=== PATIENT | female | born 1945 | race Caucasian/White ===

== ENCOUNTER 2018-11-01 00:09 | Inpatient (IN) | payer MEDICARE ==
--- NOTE | 2018-11-01 00:27 | ED ---
Complex/Multi-Sys Presentation - HPI Summary HPI Summary: This patient was transferred from [place] to [facility] for sepsis. The patient reports right leg wounds and pain, with erythema. Both of her lower extremities have been wrapped for about two days since she was seen at a wound clinic in [place]. She says that she was febrile with chills and currently feels tired. She rates her pain as an 8/10 in severity. She denies any vomiting but reports some diarrhea. She has been on abx. Hx of DM - History Of Current Complaint Hx Obtained From: Patient, EMS Onset/Duration: Sudden Onset, Lasting Days, Still Present Timing: Constant, Days Severity Currently: Severe Severity Initially: Severe Location: Pain At: - legs Character: Unable To Describe Aggravating Factor(s): nothing Alleviating Factor(s): nothing Associated Signs And Symptoms: Positive: Edema, Diarrhea, Fever. Negative: Vomiting - Allergies/Home Medications Allergies/Adverse Reactions: Allergies Allergy/AdvReac Type Severity Reaction Status Date / Time meperidine [From Demerol] Allergy Unknown Verified 11/01/18 00:14 Reaction Details prochlorperazine Allergy Unknown Verified 11/01/18 00:14 [From Compazine] Reaction Details Home Medications: Home Medications Amlodipine Besylate [Amlodipine 2.5 mg tab] 5 mg PO DAILY 11/01/18 [History Confirmed 11/01/18] Aspirin [Adult Low Dose Aspirin EC] 81 mg PO DAILY 11/01/18 [History Confirmed 11/01/18] Atorvastatin* [Lipitor*] 80 mg PO DAILY 11/01/18 [History Confirmed 11/01/18] Cholecalciferol TAB* [Vitamin D TAB*] 400 unit PO DAILY 11/01/18 [History Confirmed 11/01/18] Cyanocobalamin (Vitamin B-12) [B-12] 2,500 mcg PO DAILY 11/01/18 [History Confirmed 11/01/18] Furosemide TAB* [Lasix TAB*] 40 mg PO BID 11/01/18 [History Confirmed 11/01/18] Gabapentin [Neurontin] 100 mg PO DAILY 11/01/18 [History Confirmed 11/01/18] Insulin NPH Hum/Reg Insulin Hm [Novolin 70-30 Flexpen] 40 unit SUBCUT QPM [History Confirmed 11/01/18] Insulin NPH Hum/Reg Insulin Hm [Novolin 70-30 Flexpen] 50 units SUBCUT QAM 11/01 [History Confirmed 11/01/18] Lisinopril 10 mg PO DAILY 11/01/18 [History Confirmed 11/01/18] Methadone TAB* [Dolophine TAB*] 5 mg PO QID 11/01/18 [History Confirmed 11/01/18 ] Metoprolol Succinate [Metoprolol Succinate ER] 12.5 mg PO DAILY 11/01/18 [ History Confirmed 11/01/18] metOLazone [Metolazone] 2.5 mg PO DAILY 11/01/18 [History Confirmed 11/01/18] PMH/Surg Hx/FS Hx/Imm Hx Endocrine/Hematology History: Reports: Hx Diabetes Sensory History: Denies: Hx Deafness EENT History: Denies: Hx Deafness Infectious Disease History: No Infectious Disease History: Denies: Traveled Outside the [place] in Last 30 Days - Family History Known Family History: Positive: Cardiac Disease - Social History Alcohol Use: None Hx Substance Use: No Substance Use Type: Reports: None Hx Tobacco Use: No Smoking Status (MU): Never Smoked Tobacco Review of Systems Positive: Fever, Chills Positive: Diarrhea. Negative: Vomiting Positive: Myalgia - leg pain, Edema - lower extremities Positive: Other - positive: erythema lower extremities All Other Systems Reviewed And Are Negative: Yes Physical Exam - Summary Physical Exam Summary: Appearance: elderly female, somewhat obese in no acute distress, Skin: Warm, dry, no obvious rash Eyes: sclera anicteric, no conjunctival pallor ENT: mucous membranes moist, pharynx appears normal Neck: Supple, nontender Respiratory: Clear to auscultation, no signs of respiratory distress Cardiovascular: Normal S1, S2. No murmurs. Normal distal pulses in tibial and radial bilaterally. Abdomen: Soft, nontender, normal active bowel sounds present Musculoskeletal:bilateral lower extremity edema, deep ulcer on plantar aspect of right great toe with some granulation tissue and is not malodorous, a little bit of bleeding of edges of the ulcer, the rest of the dressing was taken down on her leg and there are no other visible ulcers or frankly cellulitic areas. Neurological: A&Ox3, awake and alert, mentation is normal, speech is fluent and appropriate Psychiatric: affect is normal, does not appear anxious or depressed Triage Information Reviewed: Yes Vital Signs On Initial Exam: Initial Vitals Temp Pulse Resp BP Pulse Ox 98 F 102 18 150/82 97 11/01/18 00:12 11/01/18 00:12 11/01/18 00:12 11/01/18 00:12 11/01/18 00:12 Vital Signs Reviewed: Yes Diagnostics - Vital Signs Vital Signs Temp Pulse Resp BP Pulse Ox 11/01/18 00:12 98 F 102 18 150/82 97 - Laboratory Result Diagrams: 11/01/18 00:46 11/01/18 00:46 Lab Statement: Any lab studies that have been ordered have been reviewed, and results considered in the medical decision making process. Complex Multi-Symp Course/Dx Course Of Treatment: This patient was transferred from [place] to [facility] for sepsis. The patient reports right leg wounds and pain, with erythema. The physical exam revealed that the patient is an elderly female, somewhat obese in no acute distress, bilateral lower extremity edema, deep ulcer on plantar aspect of right great toe with some granulation tissue and is not malodorous, a little bit of bleeding of edges of the ulcer. the rest of the dressing was taken down on her leg and there are no other visible ulcers or frankly cellulitic areas. Blood work, chemistries and UA obtained. Discussed case with Dr. Calero, hospitalist, who accepted the patient for admission. The patient is agreeable with this plan. - Diagnoses Provider Diagnoses: Fever, Cellulitis, Sepsis - Physician Notifications Discussed Care Of Patient With: John Calero Time Discussed With Above Provider: 00:24 Instructed by Provider To: Admit As Inpatient Discharge - Sign-Out/Discharge Documenting (check all that apply): Patient Departure - admit Patient Received Moderate/Deep Sedation with Procedure: No - Discharge Plan Condition: Fair Disposition: ADMITTED TO [facility] Referrals: No Primary Care Phys,NOPCP [Primary Care Provider] - - Billing Disposition and Condition Condition: FAIR Disposition: Admitted to [facility] - Attestation Statements Document Initiated by Scribe: Yes Documenting Scribe: Boo Schulte Provider For Whom Scribe is Documenting (Include Credential): Jose Pugh MD Scribe Attestation: Boo Cooper, eugenieibed for Jose Pugh MD on 11/01/18 at 0159. Scribe Documentation Reviewed: Yes Provider Attestation: The documentation as recorded by the scribe, Boo Schulte accurately reflects the service I personally performed and the decisions made by me, Jose Pugh MD Status of Eugenieibleonard Document: Viewed
[2018-11-01 00:56] LABS: Hematocrit 24 % (35-47); Hemoglobin 8.2 g/dL (12.0-16.0); Mean Corpuscular HGB Conc 34 g/dL (31-36); Mean Corpuscular Hemoglobin 33 pg (27-31); Mean Corpuscular Volume 97 fL (80-97); Mean Platelet Volume 8.5 fL (7.4-10.4); Platelet Count 144 10^3/uL (150-450); Red Blood Count 2.46 10^6 /uL (3.70-4.87); Red Cell Distribution Width 17 % (10-15); White Blood Count 9.9 10^3/uL (3.5-10.8)
[2018-11-01 01:12] LABS: ALT 17 U/L (7-52); AST 48 U/L (13-39); Albumin 1.8 g/dL (3.2-5.2); Albumin/Globulin Ratio 0.5 (1-3); Alkaline Phosphatase 113 U/L (34-104); Anion Gap 6 mmol/L (2-11); BUN/Creatinine Ratio 31.4 (8-20); Blood Urea Nitrogen 44 mg/dL (6-24); CO2 Carbon Dioxide 24 mmol/L (22-32); Calcium 7.4 mg/dL (8.6-10.3); Chloride 104 mmol/L (101-111); EGFR African American 44.6 (>60); EGFR Non-African American 36.9 (>60); Globulin 3.4 g/dL (2-4); Glucose 149 mg/dL (70-100); Potassium 4.1 mmol/L (3.5-5.0); Sodium 134 mmol/L (135-145); Total Protein 5.2 g/dL (6.4-8.9)
[2018-11-01 01:54] LABS: ABS Eosinophils 0.1 10^3/ul (0-0.6); ABS Lymphocytes 0.4 10^3/ul (1.0-4.8); ABS Monocytes 0.6 10^3/ul (0-0.8); ABS Neutrophils 8.3 10^3/ul (1.5-7.7); Eosinophil % 0.9 %; Lymphocyte % 4.8 %
--- NOTE | 2018-11-01 02:03 | HP ---
History of Present Illness - History of Present Illness Reason for Visit: Fever/Generalized weakness. History of Present Illness: 73yoF with T2DM, HTN, CVA, CAD s/pCABG, Chronic bilateral LE lyphedema, was sent from [facility] due to sepsis, anemia and elevated troponin. Enmanuel has had fever for 3 days with temperature as high at 103 along with diarrhea. And for the last two days has been mostly bedridden and unable to walk. However initially refused to come to ER, but son finally convinced her after she was feeling extremely weak. She had diabetic neuropathy and had chronic LE ulcers which was dressed on monday at a wound clinic. She denies any chest pain, cough or shortness of breath. Denies any blood in stool. - Past Medical History Cardiac: [employer]: Peripheral neuropathy, TIA Heme/Onc: Anemia NOS - Which patient thinks is due to slow bleeding from wounds. , Other - Chronic bilateral LE lymphedema. Infectious Disease: Other - Pseudomonal Bacteremia. Renal/: Chronic renal insuff Endocrine: Diabetes - Past Surgical History Past Surgical History: CABG, Hysterectomy, Total Knee Replacement - Bilateral - Past Social History Smoke: No Alcohol: None Drugs: None Lives: With Family - Lives with and son is next door. Review of Systems - Measurements Intake and Output: Intake and Output Last 24 Hours 10/29/18 10/30/18 10/31/18 11/01/18 06:59 06:59 06:59 06:59 Weight 173 lb - Review of Systems Constitutional Symptoms: Positive: Weakness, Fever Eyes: Negative: Change in Vision Cardiology: Negative: Chest Pain, Shortness of Breath Gastroenterology: Positive: Diarrhea Negative: Abdominal Pain, Nausea, Vomiting Endocrinology: Positive: Diabetes Mellitus, Diabetic Foot Ulcers Hematologic/Lymphatic: Positive: Anemia Objective Vital Signs - 8 hr 11/01/18 11/01/18 00:12 00:30 Temperature 98 F Pulse Rate 102 Respiratory 18 17 Rate Blood Pressure 150/82 (mmHg) O2 Sat by Pulse 97 Oximetry Oxygen Devices in Use Now: None Eyes: No Scleral Icterus, PERRLA Ears/Nose/Mouth/Throat: - - Membranes appear dry. Neck: NL Appearance and Movements; NL JVP Respiratory: Clear to Auscultation Cardiovascular: - - Systolic Murmur noted. Extremities: - - Chronic lymphedema with bilateral LE erythema up to the knee with large ulcer under right great toe. Neurological: Alert and Oriented x 3, NL Sensation Result Diagrams: 11/01/18 00:46 11/01/18 00:46 Additional Lab and Data: Results summarized from [facility]. WBC Elevated at 11.1 with 7% bands. Hemoglobin 7.3 Creatinine elevated at 1.8 Troponin 0.234 Lactic Acid elevated 2.8 UA negative for any Leukocyte esterase or nitrite. Albumin low at 1.3 CXR Bilateral infrahilar patchy opacitis, which may represent infiltrates. EKG Data: EKG Regular rhythm at 82BPM with abnormal P-axis. No obvious ST changes. Assess/Plan/Problems-Billing Assessment: - Patient Problems (1) Sepsis Current Visit: Yes Status: Acute Comment: Unclear etiology cellulitis vs PNA given CXR read. ?Multi-organ damage given elevated troponin, KELBY and lactic acidosis. (2) PNA (pneumonia) Current Visit: Yes Status: Acute Code(s): J18.9 - PNEUMONIA, UNSPECIFIED ORGANISM SNOMED Code(s): 941246518 Comment: Start vanco/zosyn for now. (3) Cellulitis Current Visit: Yes Status: Acute Code(s): L03.90 - CELLULITIS, UNSPECIFIED SNOMED Code(s): 095766063 Comment: More likely diabetic foot with chronic ulcers however patient given broad spectrum for PNA will cover for possibile cellulitis. Consider podiatry or ortho consult to evaluate the great toe as well. (4) Elevated troponin Current Visit: Yes Status: Acute Code(s): R74.8 - ABNORMAL LEVELS OF OTHER SERUM ENZYMES SNOMED Code(s): 749569524 Comment: Serial troponin. EKG no obvious ischemia. ECHO cardiogram. (5) KELBY (acute kidney injury) Current Visit: Yes Status: Acute Code(s): N17.9 - ACUTE KIDNEY FAILURE, UNSPECIFIED SNOMED Code(s): 38001530 Comment: Unclear acute vs chronic. Continue hydration. (6) Anemia Current Visit: Yes Status: Acute Code(s): D64.9 - ANEMIA, UNSPECIFIED SNOMED Code(s): 437557880 Comment: Hb still low. Follow up anemia panel. Stool occult pending. Will hold 2 Units to transfuse if AM labs show drop in Hb. (7) Diabetes Current Visit: Yes Status: Acute Code(s): E11.9 - TYPE 2 DIABETES MELLITUS WITHOUT COMPLICATIONS SNOMED Code(s): 40625301 Comment: Check A1c and start insulin sliding scale (8) HTN (hypertension) Current Visit: Yes Status: Acute Code(s): I10 - ESSENTIAL (PRIMARY) HYPERTENSION SNOMED Code(s): 12872771 Comment: Given sepsis and low normal BP will hold home BP meds. (9) Serum albumin decreased Current Visit: Yes Status: Acute Code(s): E88.09 - OTH DISORDERS OF PLASMA- PROTEIN METABOLISM, NEC SNOMED Code(s): 953407361 Comment: Could be sign of malnutrition will start protien suppliment. (10) DVT prophylaxis Current Visit: Yes Status: Acute Code(s): Z29.9 - ENCOUNTER FOR PROPHYLACTIC MEASURES, UNSPECIFIED SNOMED Code(s): 849553808 Comment: Start heparin sub-Q. (11) Full code status Current Visit: Yes Status: Acute Code(s): Z78.9 - OTHER SPECIFIED HEALTH STATUS SNOMED Code(s): 988035654 Comment: Code status discussed. She wants everything done. Status and Disposition: 73yoF with DM, HTN, CAD s/p CABG, sent from [facility] for sepsis, anemia and elevated troponin. Allergies/Medications Medication: Amlodipine Besylate [Amlodipine 2.5 mg tab] 5 mg PO DAILY 11/01/18 [History Confirmed 11/01/18] Aspirin [Adult Low Dose Aspirin EC] 81 mg PO DAILY 11/01/18 [History Confirmed 11/01/18] Atorvastatin* [Lipitor*] 80 mg PO DAILY 11/01/18 [History Confirmed 11/01/18] Cholecalciferol TAB* [Vitamin D TAB*] 400 unit PO DAILY 11/01/18 [History Confirmed 11/01/18] Cyanocobalamin (Vitamin B-12) [B-12] 2,500 mcg PO DAILY 11/01/18 [History Confirmed 11/01/18] Furosemide TAB* [Lasix TAB*] 40 mg PO BID 11/01/18 [History Confirmed 11/01/18] Gabapentin [Neurontin] 100 mg PO DAILY 11/01/18 [History Confirmed 11/01/18] Insulin NPH Hum/Reg Insulin Hm [Novolin 70-30 Flexpen] 40 unit SUBCUT QPM [History Confirmed 11/01/18] Insulin NPH Hum/Reg Insulin Hm [Novolin 70-30 Flexpen] 50 units SUBCUT QAM 11/01 [History Confirmed 11/01/18] Lisinopril 10 mg PO DAILY 11/01/18 [History Confirmed 11/01/18] Methadone TAB* [Dolophine TAB*] 5 mg PO QID 11/01/18 [History Confirmed 11/01/18 ] Metoprolol Succinate [Metoprolol Succinate ER] 12.5 mg PO DAILY 11/01/18 [ History Confirmed 11/01/18] metOLazone [Metolazone] 2.5 mg PO DAILY 11/01/18 [History Confirmed 11/01/18] Allergies/Adverse Reactions: Allergies Allergy/AdvReac Type Severity Reaction Status Date / Time meperidine [From Demerol] Allergy Unknown Verified 11/01/18 00:14 Reaction Details prochlorperazine Allergy Unknown Verified 11/01/18 00:14 [From Compazine] Reaction Details
[2018-11-01 02:32] LABS: Urine Appearance Cloudy; Urine Bacteria Absent (Absent); Urine Bilirubin Negative (Negative); Urine Blood Negative (Negative); Urine Color Yellow; Urine Glucose Negative (Negative); Urine Ketones Negative (Negative); Urine Nitrite Negative (Negative); Urine Protein 1+(30 mg/dL) (Negative); Urine Red Blood Cell 1+(3-5/hpf) (Absent); Urine Specific Gravity 1.011 (1.010-1.030); Urine Urobilinogen Negative (Negative); Urine White Blood Cell Trace(0-5/hpf) (Absent)
[2018-11-01 02:39] LABS: Troponin I 0.27 ng/mL (<0.04)
[2018-11-01] MEDS ORDERED: Vancomycin(*) 1,000 MG in NS 0.9% 250 ML* 250 ML IVPB ONE (02:42)
[2018-11-01] MEDS ORDERED: Dextrose 50% Syringe 50 ML* 25 GM/50 ML SYRINGE IV PUSH PRN (02:59)
[2018-11-01] MEDS ORDERED: ZOSYN 3.375 GM x ONE DOSE over 30 miuntes IVPB ×2 (03:00)
[2018-11-01 03:04] LABS: Troponin I 0.18 ng/mL (<0.04)
[2018-11-01 03:14] LABS: Total Iron Binding Capacity 155 mcg/dL (250-450); Transferrin 111 mg/dL (203-362)
[2018-11-01 03:39] LABS: Folate > 20.00 ng/mL (>3.99)
[2018-11-01] MEDS ORDERED: Vancomycin(*) 1,250 MG IV x ONCE IVPB ONE ×2 (04:00)
[2018-11-01] MEDS ORDERED: Vancomycin per Pharmacy* NOTE FOLLOW UP PRN (04:00)
[2018-11-01 04:05] LABS: % Iron Saturation 11 % (15-55); Iron < 17 ug/dL (50-212)
[2018-11-01] MEDS ORDERED: Morphine INJ* 2 MG/ML 1 ML SYRINGE (TWO MG - NEW SYRINGE VERSION) IV ONE (04:25)
[2018-11-01] MEDS: NS 0.9% 1000 ML** 1,000 ML IV SCH ×2 (04:30→15:23)
[2018-11-01] MEDS ORDERED: Zosyn per Pharmacy* NOTE FOLLOW UP PRN (04:44)
[2018-11-01] MEDS: Heparin VIAL(*) 5000 UNITS/ML VIAL (FIVE THOUSAND) SUBCUT SCH ×3 (06:21→20:19)
[2018-11-01] MEDS: Piperacillin/Tazobac ADVAN(*) 3.375 GM in NS 0.9% 100 ML* 100 ML IVPB SCH ×3 (07:18→22:46)
[2018-11-01 07:48] LABS: Troponin I 0.16 ng/mL (<0.04)
[2018-11-01] MEDS: Insulin LISPRO* 1 UNITS UNIT SUBCUT SCH ×4 (08:06→20:19)
[2018-11-01] MEDS: Methadone TAB* 5 MG PO SCH ×4 (08:26→20:20)
[2018-11-01] MEDS: Aspirin EC TAB* 81 MG TAB.EC PO SCH (08:28)
[2018-11-01] MEDS: amLODIPine TAB* 5 MG PO SCH (08:28)
[2018-11-01] MEDS: Atorvastatin* 80 MG TAB PO SCH (08:29)
[2018-11-01] MEDS: Gabapentin CAP(*) 100 MG PO SCH (08:29)
[2018-11-01] MEDS: Cholecalciferol TAB* 400 UNIT PO SCH (08:29)
[2018-11-01] MEDS: Metoprolol Succinate XL TAB* 25 MG PO SCH (08:29)
[2018-11-01] MEDS ORDERED: Morphine 4 MG/ML VIAL (1 ml) 4 MG/ML VIAL IV PRN (09:12)
[2018-11-01] MEDS ORDERED: Perflutren Lipid Microsphere* 3 ML VIAL ONE (11:37)
[2018-11-01 12:11] LABS: Troponin I 0.18 ng/mL (<0.04)
[2018-11-01 14:21] LABS: Hematocrit 23 % (35-47); Hemoglobin 7.7 g/dL (12.0-16.0)
--- NOTE | 2018-11-01 14:33 | ECHO ---
*[facility]* [place] [address] Fax #: [phone] Transthoracic Echocardiogram Patient: Kathi Mendes : 1945 Study Date: 11/01/2018 Age: 73 Gender: F HR: 80 bpm Height: 62 in /157.5 cm BSA: 1.87 m^2 Weight: 189.6 lb /86.2 kg BMI: 34.8 kg/m^2 *Clothes Model: * Lucie Rudd RDCS RN *Referring Physician: * John Calero *Reading Physician: * William Hobson MD Indications: Elevated troponin. SOB. History: Coronary artery disease. Cerebrovascular accident. Risk factors: Hypertension. Diabetes mellitus. Labs, prior tests, procedures, and surgery: Coronary artery bypass grafting. Conclusions Summary: 1. Left ventricle: The cavity size is normal. Wall thickness is mildly increased. Systolic function is normal. The estimated ejection fraction is 55-60%. Wall motion is normal; there are no regional wall motion abnormalities. 2. Right ventricle: The cavity size is mildly dilated. Systolic function is low normal. 3. Ventricular septum: Ventricular septal wall motion has a postoperative appearance. 4. Left atrium: The atrium is mildly to moderately dilated. 5. Tricuspid valve: There is mild-moderate regurgitation. 6. Pulmonary arteries: Systolic pressure is mildly increased, estimated to be 37 mm Hg. Recommendations: Compared to prior study from 01/2017, estimated PASP was previously moderately elevated. Study data: Transthoracic echocardiogram. Procedure: Transthoracic echocardiography was performed. The study was technically limited due to poor acoustic window availability and body habitus. Definity 3 ml was administered IV by Otto Rudd RN, RDCS for image enhancement. Complete 2D, spectral Doppler, and color flow Doppler. Patient status: Inpatient. Patient room number: 451. Rhythm: Atrial fibrillation. Findings Left ventricle: The cavity size is normal. Wall thickness is mildly increased. Systolic function is normal. The estimated ejection fraction is 55-60%. Wall motion is normal; there are no regional wall motion abnormalities. Doppler parameters are consistent with abnormal left ventricular relaxation (grade 1 diastolic dysfunction). Right ventricle: The cavity size is mildly dilated. Systolic function is low normal. Ventricular septum: Ventricular septal wall motion has a postoperative appearance. Left atrium: The atrium is mildly to moderately dilated. Right atrium: The atrium is mildly dilated. Mitral valve: The annulus is mildly calcified. The leaflets are mildly thickened. There is no evidence of stenosis. There is mild regurgitation. Aortic valve: The annulus is calcified. The valve is trileaflet. The leaflets are mildly thickened. There is no evidence of stenosis. There is no regurgitation. Tricuspid valve: The valve is structurally normal. There is no evidence of stenosis. There is mild-moderate regurgitation. Pulmonic valve: The valve is structurally normal. There is no evidence of stenosis. There is tracel regurgitation. Aorta: Aortic root: The aortic root is not dilated. Ascending aorta: The ascending aorta is not visualized. Aortic arch: The aortic arch is not visualized. Pericardium: There is no pericardial effusion. Pulmonary arteries: Not well visualized. Systolic pressure is mildly increased, estimated to be 37 mm Hg. Systemic veins: Inferior vena cava: The vessel is normal in size. The respirophasic diameter changes are in the normal range (>= 50%). Measurements Left ventricle Value Ref Right atrium continued Value Ref BRIAN, LAX 4.3 cm 3.8 - 5.2 SI dim, ES, A4C (H) 5.7 cm 3.4 - 5.3 ESD, LAX 3.1 cm 2.2 - 3.5 Estimated RAP 3 mm Hg --------- FS, LAX 29 % 27 - 45 PW, ED (H) 1.1 cm 0.6 - 0.9 Aortic valve Value Ref PW/ID, ED 0.26 Noelle diam, ED 2.0 cm --------- E', lat noelle, TDI (L) 7.7 cm/sec >=10.0 Peak v, S 1.84 m/sec -- ------- E/e', lat noelle, 16 VTI, S 27.7 cm ----- ---- TDI Mean grad, S 8.0 mm Hg --------- E', med noelle, TDI (L) 6.4 cm/sec >=7.0 Peak grad, S 14.0 mm Hg -- ------- E/e', med noelle, 19 LVOT/AV, VTI ratio 0.69 ----- ---- TDI E', avg, TDI 7.1 cm/sec Mitral valve Value Ref E/e', avg, TDI (H) 17 <=14 Peak E 1.23 m/sec -- ------- Decel time 169 ms --------- LVOT Value Ref Peak grad, D 6.1 mm Hg --------- Peak josue, S 1.08 m/sec VTI, S 19.0 cm Pulmonic valve Value Ref Mean grad, S 3 mm Hg Peak v, S 1.04 m/sec --------- Peak grad, S 4.0 mm Hg --------- Ventricular septum Value Ref IVS, ED (H) 1.1 cm 0.6 - 0.9 Tricuspid valve Value Ref TR peak v (H) 2.9 m/sec <=2.8 Right ventricle Value Ref Peak RV-RA grad, S 34 mm Hg --------- BRIAN, LAX 3.4 cm Max TR josue 3 m/sec --------- BRIAN minor ax, A4C 3.3 cm 1.9 - 3.5 mid Aortic root Value Ref Pressure, S 37 mm Hg Root diam 2.7 cm <4.0 Left atrium Value Ref Pulmonary artery Value Ref AP dim, ES (H) 4.10 cm 2.70 - Pressure, S 33.0 mm Hg --------- 3.80 ML dim, A4C 4.2 cm Inferior vena cava Value Ref SI dim, A4C 5.8 cm Diam 1.8 cm --------- Vol/bsa, ES, 1-p 39 ml/m^2 11 - 40 A4C Vol/bsa, ES, A/L (H) 40 ml/m^2 16 - 34 Right atrium Value Ref ML dim, ES, A4C (H) 4.5 cm 2.6 - 4.4 Legend: (L) and (H) lorna values outside specified reference range. Prepared and electronically signed by William Hobson MD 11/01/2018 14:33
--- NOTE | 2018-11-01 17:31 | PN ---
Subjective Date of Service: 11/01/18 Interval History: Patient seen and examined. Significant pain, some SOB and tachypnea. Remains on O2 at 2L. Feeling weak and tired. Objective Active Medications: Amlodipine Besylate (Norvasc Tab*) 5 mg PO DAILY [facility] Last Admin: 11/01/18 08:28 Dose: 5 mg Aspirin (Aspirin Ec Tab*) 81 mg PO DAILY [facility] Last Admin: 11/01/18 08:28 Dose: 81 mg Atorvastatin Calcium (Lipitor*) 80 mg PO DAILY [facility] Last Admin: 11/01/18 08:29 Dose: 80 mg Cholecalciferol (Vitamin D Tab*) 400 unit PO DAILY [facility] Last Admin: 11/01/18 08:29 Dose: 400 unit Dextrose (D50w Syringe 50 Ml*) 12.5 gm IV PUSH .FOR FS < 60 - SS PRN PRN Reason: FS < 60 Gabapentin (Neurontin Cap(*)) 100 mg PO DAILY [facility] Last Admin: 11/01/18 08:29 Dose: Not Given Heparin Sodium (Porcine) (Heparin Vial(*)) 5,000 units SUBCUT Q8HR [facility] Last Admin: 11/01/18 12:33 Dose: 5,000 units Piperacillin Sod/Tazobactam (Sod 3.375 gm/ Sodium Chloride) 100 mls @ 25 mls/ hr IVPB Q8H [facility] Last Admin: 11/01/18 15:23 Dose: 25 mls/hr Sodium Chloride (Ns 0.9% 1000 Ml) 1,000 mls @ 100 mls/hr IV PER RATE [facility] Last Admin: 11/01/18 15:23 Dose: 100 mls/hr Vancomycin HCl 1,250 mg/ (Sodium Chloride) 250 mls @ 166.667 mls/hr IVPB Q24H [facility] Insulin Human Lispro (Humalog*) 0 units SUBCUT ACHS [facility]; Protocol Last Admin: 11/01/18 12:19 Dose: Not Given Methadone HCl (Dolophine Tab*) 5 mg PO QID [facility] Last Admin: 11/01/18 17:07 Dose: 5 mg Metoprolol Succinate (Toprol Xl Tab*) 12.5 mg PO DAILY [facility] Last Admin: 11/01/18 08:29 Dose: 12.5 mg Morphine Sulfate (Morphine 4 Mg/Ml Vial (1 Ml)) 2 mg IV Q4H PRN PRN Reason: PAIN - MODERATE TO SEVERE Last Admin: 11/01/18 09:24 Dose: 2 mg Pharmacy Consult (Vancomycin Per Pharmacy*) 1 note FOLLOW UP . PRN PRN Reason: PER PROTOCOL Pharmacy Consult (Zosyn Per Pharmacy*) 1 note FOLLOW UP . PRN PRN Reason: PER PROTOCOL Pharmacy Profile Note (Vancomycin Trough Check) 1 note FOLLOW UP 0400 ONE Stop: 11/04/18 04:01 Vital Signs - 8 hr 11/01/18 11/01/18 11/01/18 10:41 11:13 12:33 Temperature Pulse Rate Respiratory 20 20 16 Rate Blood Pressure (mmHg) O2 Sat by Pulse Oximetry 11/01/18 11/01/18 11/01/18 12:56 15:40 15:42 Temperature 99.3 F 98.8 F Pulse Rate 96 96 Respiratory 20 24 16 Rate Blood Pressure 140/40 123/36 (mmHg) O2 Sat by Pulse 100 92 Oximetry 11/01/18 17:07 Temperature Pulse Rate Respiratory 20 Rate Blood Pressure (mmHg) O2 Sat by Pulse Oximetry Oxygen Devices in Use Now: Nasal Cannula Appearance: alert, fatigued Eyes: No Scleral Icterus, PERRLA Ears/Nose/Mouth/Throat: - - dry oral mucosa Neck: NL Appearance and Movements; NL JVP, Trachea Midline Respiratory: - - tachypnea with increased WOB, no wheeze Cardiovascular: NL Sounds; No Murmurs; No JVD, RRR Extremities: - - bilateral LE lymphedema, severe, right great toe with plantar surface wound and LE bilateral cellulitis Nutrition: Taking PO's Result Diagrams: 11/01/18 14:15 11/01/18 00:46 Additional Lab and Data: Results summarized from [facility]. WBC Elevated at 11.1 with 7% bands. Hemoglobin 7.3 Creatinine elevated at 1.8 Troponin 0.234 Lactic Acid elevated 2.8 UA negative for any Leukocyte esterase or nitrite. Albumin low at 1.3 CXR Bilateral infrahilar patchy opacitis, which may represent infiltrates. Microbiology and Other Data: Microbiology 11/01/18 04:05 Nasal Screen MRSA (PCR) - Final Nasal Mrsa Detected EKG Data: EKG Regular rhythm at 82BPM with abnormal P-axis. No obvious ST changes. Assess/Plan/Problems-Billing Assessment: This is a 73 year old female with hx of CAD/CABG, DM, HTN sent from [facility] for sepsis, anemia and elevated troponin - Patient Problems (1) Diabetic toe ulcer Code(s): E11.621 - TYPE 2 DIABETES MELLITUS WITH FOOT ULCER; L97.509 - NON- PRESSURE CHRONIC ULCER OTH PRT UNSP FOOT W UNSP SEVERITY SNOMED Code(s): 19942633 Comment: - Follows at clinic in [place] - Concern for osteo, will MRI and consult ortho, spoke with Dr. Medeiros - Continue vanco and zosyn, follow cultures (2) KELBY (acute kidney injury) Code(s): N17.9 - ACUTE KIDNEY FAILURE, UNSPECIFIED SNOMED Code(s): 80289410 Comment: - KELBY on CKD, continue gentle hydration and follow labs (3) Anemia Code(s): D64.9 - ANEMIA, UNSPECIFIED SNOMED Code(s): 977064577 Comment: - H&H dropped further to 7.7/24, no overt bleeding noted, sepsis? CKD? remains tachypneic/symptomatic - Transfuse two units today (4) Cellulitis Code(s): L03.90 - CELLULITIS, UNSPECIFIED SNOMED Code(s): 150692302 Comment: - Diabetes and chronic lymphedema - Patient unsure about vascular status and if shes had studies in the past - Local wound care, continue atbx (5) Diabetes Code(s): E11.9 - TYPE 2 DIABETES MELLITUS WITHOUT COMPLICATIONS SNOMED Code(s) : 81249499 Comment: - A1C6.8 - Continue lispro sliding scale and accucheck ACHS (6) Elevated troponin Code(s): R74.8 - ABNORMAL LEVELS OF OTHER SERUM ENZYMES SNOMED Code(s): 203597823 Comment: - Trop peaked, likely demand in presence of sepsis, EKG no obvious ischemia and no chest pain - hx of CABG 40 years ago, complete ECHO in AM, may need ischemic workup when acute illness resolved (7) HTN (hypertension) Code(s): I10 - ESSENTIAL (PRIMARY) HYPERTENSION SNOMED Code(s): 16514742 Comment: - Hold meds in presence of sepsis (8) Sepsis Comment: - Etiology PNA vx cullulitis and possibly right great toe osteo - LA 1.9 - [place] called with blood culture results, gram positive cocci in chains in 2 bottles, await final results (9) DVT prophylaxis Code(s): Z29.9 - ENCOUNTER FOR PROPHYLACTIC MEASURES, UNSPECIFIED SNOMED Code( s): 702939682 Comment: - heparin sq (10) Full code status Code(s): Z78.9 - OTHER SPECIFIED HEALTH STATUS SNOMED Code(s): 440896813 Comment: Status and Disposition: Inpatient, guarded.
--- NOTE | 2018-11-01 18:31 | CONS ---
CONSULTATION REPORT: DATE OF CONSULT: 11/01/18 CHIEF COMPLAINT: Right foot wound and sepsis. HISTORY OF PRESENT ILLNESS: Kathi is 73. She lives down the [facility]. She has chronic bilateral lower extremity lymphedema coupled with diabetes and coronary artery disease. She is status post CABG. She has also had a CVA. She was sent up from [facility] due to sepsis, some anemia, and elevated troponin. Her history and physical says she was febrile for 3 days prior to admission with a temperature as high as 103 degrees along with some diarrhea. Since she has been here, she has been much less febrile and today , she has been afebrile with a T-max since admission here of 99.3. She has been getting rehydrated. She has been started on broad-spectrum antibiotics. Orthopedics was consulted due to a right foot wound that looks like it might be infected. They have been doing wound care. The patient tells me today it has been hurting less. She has chronic lower extremity lymphedema. She follows with the [facility] [place]. Over the last couple of weeks, the foot has been more painful and again , it is feeling a little bit better today after the antibiotics. She says she has had the wound for some time, but she cannot tell me quite exactly how long it has been. She just says it has been there for some time. She has had diabetes since the 1980s, she tells me. PAST MEDICAL HISTORY: Coronary artery disease, peripheral neuropathy, history of TIA, anemia, chronic bilateral lower extremity lymphedema, pseudomonas bacteremia, chronic renal insufficiency, and diabetes. PAST SURGICAL HISTORY: CABG, hysterectomy, total knee replacement bilaterally. FAMILY HISTORY: Noncontributory. SOCIAL HISTORY: She lives with her , who she says is not well. Her son lives next door. She does not smoke. REVIEW OF SYSTEMS: As above. It is also positive for weakness and fever, right foot pain. PHYSICAL EXAM: Vital Signs: T-max 99.3, heart rate 96, respiratory rate 24, satting 92% on 2 L, and blood pressure 123/36. General: Awake and alert, responsive, but not very conversant, seems to search for the answers to questions a little bit. Skin: She has lymphedema with some cellulitic changes to bilateral lower extremities. The calves are wrapped in Kerlix, which she did not allow me to remove, but clearly some cellulitis is seen at the margins with a little bit of serous drainage. No obvious large wounds are seen. Musculoskeletal: Again seen is the very large amount of bilateral lower extremity lymphedema. She has a large plantar ulcer on the great toe underneath the proximal phalanx. The bone and tendon are visible in the base of the wound. It is actually pretty dry today. Per report, it was little bitter wetter when she first came in. Respiratory: She is currently off oxygen and seems to have normal respiratory effort. Cardiac: Pulses are not palpable due to the lymphedema. Feet are perfused, but some of the toes have more purplish appearance to them. DIAGNOSTIC STUDIES/LAB DATA: X-rays have not been obtained thus far. Her white count is 9.9, H and H are 7.7 and 23, platelets are 144. The most recent troponin is 0.18, up from 0.16. Her hemoglobin A1c is 6.8. Admission lactic acid was 1.9. Her creatinine is 1.4 and sodium is 134. Albumin is 0.5. Urinalysis shows yeast, but no bacteria and negative leukocyte esterase. IMPRESSION: Sepsis. It is thought that the right foot wound is contributing to this. Certainly, it does have some infected-looking appearance to it. It sounds like it looked a little bit worse prior to the initiation of antibiotics per report from the hospitalist, who saw her this morning. Workup for other sources is ongoing. Chest x-ray was done, which showed pulmonary vascular congestion. PLAN: I agree with the antibiotics and I am going to order some foot x-rays. An MRI without contrast has been ordered to evaluate for the extent of osteomyelitis and edematous changes inside the bones. I will discuss this with my foot colleagues. Certainly, amputation of that toe and potentially more of the forefoot may be indicated. We will continue to follow her while she is here in the hospital and my foot partner would be available, I believe, on Monday. [id number]/[facility] #: [id number] USHA
[2018-11-02] MEDS: NS 0.9% 1000 ML** 1,000 ML IV SCH (01:07)
[2018-11-02] MEDS: Vancomycin(*) 1,250 MG in NS 0.9% 250 ML* 250 ML IVPB SCH (04:13)
[2018-11-02] MEDS: Heparin VIAL(*) 5000 UNITS/ML VIAL (FIVE THOUSAND) SUBCUT SCH ×3 (05:23→21:15)
[2018-11-02 06:43] LABS: Hematocrit 26 % (35-47); Hemoglobin 8.9 g/dL (12.0-16.0); Mean Corpuscular HGB Conc 34 g/dL (31-36); Mean Corpuscular Hemoglobin 32 pg (27-31); Mean Corpuscular Volume 94 fL (80-97); Mean Platelet Volume 8.7 fL (7.4-10.4); Platelet Count 116 10^3/uL (150-450); Red Cell Distribution Width 18 % (10-15); White Blood Count 10.7 10^3/uL (3.5-10.8)
[2018-11-02 07:01] LABS: Albumin 1.6 g/dL (3.2-5.2); Albumin/Globulin Ratio 0.5 (1-3); BUN/Creatinine Ratio 30.5 (8-20); Calcium 7.1 mg/dL (8.6-10.3); EGFR African American 49.5 (>60); EGFR Non-African American 40.9 (>60); Indirect Bilirubin 0.5 mg/dL (0.3-1.0); Total Bilirubin 0.9 mg/dL (0.2-1.0); Total Protein 4.6 g/dL (6.4-8.9)
[2018-11-02 07:04] LABS: ABS Eosinophils 0.1 10^3/ul (0-0.6); ABS Lymphocytes 0.8 10^3/ul (1.0-4.8); ABS Monocytes 0.7 10^3/ul (0-0.8); Eosinophil % 1.3 %; Lymphocyte % 7.5 %
[2018-11-02] MEDS: Piperacillin/Tazobac ADVAN(*) 3.375 GM in NS 0.9% 100 ML* 100 ML IVPB SCH ×3 (07:39→22:30)
[2018-11-02] MEDS: Insulin LISPRO* 1 UNITS UNIT SUBCUT SCH ×4 (08:02→21:15)
[2018-11-02] MEDS: Metoprolol Succinate XL TAB* 25 MG PO SCH (09:17)
[2018-11-02] MEDS: Methadone TAB* 5 MG PO SCH ×4 (09:17→21:16)
[2018-11-02] MEDS: Cholecalciferol TAB* 400 UNIT PO SCH (09:17)
[2018-11-02] MEDS: Gabapentin CAP(*) 100 MG PO SCH (09:17)
[2018-11-02] MEDS: Atorvastatin* 80 MG TAB PO SCH (09:17)
[2018-11-02] MEDS: Aspirin EC TAB* 81 MG TAB.EC PO SCH (09:17)
[2018-11-02] MEDS: amLODIPine TAB* 5 MG PO SCH (09:18)
--- NOTE | 2018-11-02 09:51 | PN ---
Progress Note - Progress Note Date of Service: 11/02/18 SOAP: Subjective: resting in bed, moderate pain B/L LE's Objective: Vital Signs Temp Pulse Resp BP Pulse Ox 97.2 F 85 18 133/42 97 11/02/18 08:14 11/02/18 08:14 11/02/18 09:17 11/02/18 08:14 11/02/18 08:14 Laboratory Last Values WBC 10.7 10^3/uL (3.5-10.8) 11/02/18 05:49 RBC 2.80 10^6 /uL (3.70-4.87) L 11/02/18 05:49 Hgb 8.9 g/dL (12.0-16.0) L 11/02/18 05:49 Hct 26 % (35-47) L 11/02/18 05:49 MCV 94 fL (80-97) 11/02/18 05:49 MCH 32 pg (27-31) H 11/02/18 05:49 MCHC 34 g/dL (31-36) 11/02/18 05:49 RDW 18 % (10-15) H 11/02/18 05:49 Plt Count 116 10^3/uL (150-450) L 11/02/18 05:49 MPV 8.7 fL (7.4-10.4) 11/02/18 05:49 Neut % (Auto) 84.7 % 11/02/18 05:49 Lymph % (Auto) 7.5 % 11/02/18 05:49 Dickens % (Auto) 6.4 % 11/02/18 05:49 Eos % (Auto) 1.3 % 11/02/18 05:49 Baso % (Auto) 0.1 % 11/02/18 05:49 Absolute Neuts (auto) 9.0 10^3/ul (1.5-7.7) H 11/02/18 05:49 Absolute Lymphs (auto) 0.8 10^3/ul (1.0-4.8) L 11/02/18 05:49 Absolute Monos (auto) 0.7 10^3/ul (0-0.8) 11/02/18 05:49 Absolute Eos (auto) 0.1 10^3/ul (0-0.6) 11/02/18 05:49 Absolute Basos (auto) 0.0 10^3/ul (0-0.2) 11/02/18 05:49 Absolute Nucleated RBC 0.0 10^3/ul 11/02/18 05:49 Nucleated RBC % 0.0 11/02/18 05:49 Sodium 134 mmol/L (135-145) L 11/02/18 05:49 Potassium 4.0 mmol/L (3.5-5.0) 11/02/18 05:49 Chloride 107 mmol/L (101-111) 11/02/18 05:49 Carbon Dioxide 20 mmol/L (22-32) L 11/02/18 05:49 Anion Gap 7 mmol/L (2-11) 11/02/18 05:49 BUN 39 mg/dL (6-24) H 11/02/18 05:49 Creatinine 1.28 mg/dL (0.51-0.95) H 11/02/18 05:49 Est GFR ( Amer) 49.5 (>60) 11/02/18 05:49 Est GFR (Non-Af Amer) 40.9 (>60) 11/02/18 05:49 BUN/Creatinine Ratio 30.5 (8-20) H 11/02/18 05:49 Glucose 108 mg/dL (70-100) H 11/02/18 05:49 POC Glucose (mg/dL) 120 mg/dL (70-100) H 11/02/18 07:46 Hemoglobin A1c 6.8 % (4.0-5.6) H 11/01/18 03:39 Lactic Acid 1.9 mmol/L (0.5-2.0) 11/01/18 00:46 Calcium 7.1 mg/dL (8.6-10.3) L 11/02/18 05:49 Iron < 17 ug/dL (50-212) L 11/01/18 00:46 TIBC 155 mcg/dL (250-450) L 11/01/18 00:46 % Saturation 11 % (15-55) L 11/01/18 00:46 Unsat Iron Binding < 140 ug/dL 11/01/18 00:46 Transferrin 111 mg/dL (203-362) L 11/01/18 00:46 Total Bilirubin 0.90 mg/dL (0.2-1.0) 11/02/18 05:49 Direct Bilirubin 0.40 mg/dL (0.03-0.18) H 11/02/18 05:49 Indirect Bilirubin 0.5 mg/dL (0.3-1.0) 11/02/18 05:49 AST 33 U/L (13-39) 11/02/18 05:49 ALT 12 U/L (7-52) 11/02/18 05:49 Alkaline Phosphatase 153 U/L (34-104) H 11/02/18 05:49 Troponin I 0.18 ng/mL (<0.04) H* 11/01/18 11:22 Total Protein 4.6 g/dL (6.4-8.9) L 11/02/18 05:49 Albumin 1.6 g/dL (3.2-5.2) L 11/02/18 05:49 Globulin 3.0 g/dL (2-4) 11/02/18 05:49 Albumin/Globulin Ratio 0.5 (1-3) L 11/02/18 05:49 Vitamin B12 > 1450 pg/mL (180-914) H 11/01/18 00:46 Folate > 20.00 ng/mL (>3.99) 11/01/18 00:46 Urine Color Yellow 11/01/18 02:18 Urine Appearance Cloudy 11/01/18 02:18 Urine pH 5.0 (5-9) 11/01/18 02:18 Ur Specific [place] 1.011 (1.010-1.030) 11/01/18 02:18 Urine Protein 1+(30 mg/dl) (Negative) A 11/01/18 02:18 Urine Ketones Negative (Negative) 11/01/18 02:18 Urine Blood Negative (Negative) 11/01/18 02:18 Urine Nitrate Negative (Negative) 11/01/18 02:18 Urine Bilirubin Negative (Negative) 11/01/18 02:18 Urine Urobilinogen Negative (Negative) 11/01/18 02:18 Ur Leukocyte Esterase Negative (Negative) 11/01/18 02:18 Urine WBC (Auto) Trace(0-5/hpf) (Absent) 11/01/18 02:18 Urine RBC (Auto) 1+(3-5/hpf) (Absent) A 11/01/18 02:18 Urine Bacteria Absent (Absent) 11/01/18 02:18 Urine Yeast Present (Absent) A 11/01/18 02:18 Urine Glucose Negative (Negative) 11/01/18 02:18 Blood Type A Positive 11/01/18 03:12 Antibody Screen Negative 11/01/18 03:12 Crossmatch See Detail 11/01/18 03:12 PE: large amount of LE edema B/L. unwrapped Kerlix and there are no open wounds but cellulitic and weaping B/L. Large ulcer plantar aspect right great toe, dry / no active drainage but bone and tendon visible; B/L LE redressed with kerlix. Assessment: B/L LE cellulitis/lyphadema, right great toe diabetic ulcer Plan: 1) NWB RLE 2) IV Abx 3) hospitalist co-managing 4) Robby to evaluate on Monday for possible surgical intervention
--- NOTE | 2018-11-02 18:11 | PN ---
Subjective Date of Service: 11/02/18 Interval History: Patient seen and examined. No acute overnight events. Feeling a little better today, less SOB, pain somewhat improved. No fevers or chills. Tolerating dressing changes. Objective Active Medications: Amlodipine Besylate (Norvasc Tab*) 5 mg PO DAILY [facility] Last Admin: 11/02/18 09:18 Dose: 5 mg Aspirin (Aspirin Ec Tab*) 81 mg PO DAILY [facility] Last Admin: 11/02/18 09:17 Dose: 81 mg Atorvastatin Calcium (Lipitor*) 80 mg PO DAILY [facility] Last Admin: 11/02/18 09:17 Dose: 80 mg Cholecalciferol (Vitamin D Tab*) 400 unit PO DAILY [facility] Last Admin: 11/02/18 09:17 Dose: 400 unit Dextrose (D50w Syringe 50 Ml*) 12.5 gm IV PUSH .FOR FS < 60 - SS PRN PRN Reason: FS < 60 Gabapentin (Neurontin Cap(*)) 100 mg PO DAILY [facility] Last Admin: 11/02/18 09:17 Dose: Not Given Heparin Sodium (Porcine) (Heparin Vial(*)) 5,000 units SUBCUT Q8HR [facility] Last Admin: 11/02/18 13:28 Dose: 5,000 units Piperacillin Sod/Tazobactam (Sod 3.375 gm/ Sodium Chloride) 100 mls @ 25 mls/ hr IVPB Q8H [facility] Last Admin: 11/02/18 15:08 Dose: 25 mls/hr Vancomycin HCl 1,250 mg/ (Sodium Chloride) 250 mls @ 166.667 mls/hr IVPB Q24H [facility] Last Admin: 11/02/18 04:13 Dose: 166.667 mls/hr Insulin Human Lispro (Humalog*) 0 units SUBCUT ACHS [facility]; Protocol Last Admin: 11/02/18 17:48 Dose: 3 units Methadone HCl (Dolophine Tab*) 5 mg PO QID [facility] Last Admin: 11/02/18 16:05 Dose: 5 mg Metoprolol Succinate (Toprol Xl Tab*) 12.5 mg PO DAILY [facility] Last Admin: 11/02/18 09:17 Dose: 12.5 mg Morphine Sulfate (Morphine 4 Mg/Ml Vial (1 Ml)) 2 mg IV Q4H PRN PRN Reason: PAIN - MODERATE TO SEVERE Last Admin: 11/01/18 09:24 Dose: 2 mg Pharmacy Consult (Vancomycin Per Pharmacy*) 1 note FOLLOW UP . PRN PRN Reason: PER PROTOCOL Pharmacy Consult (Zosyn Per Pharmacy*) 1 note FOLLOW UP . PRN PRN Reason: PER PROTOCOL Pharmacy Profile Note (Vancomycin Trough Check) 1 note FOLLOW UP 0400 ONE Stop: 11/04/18 04:01 Vital Signs - 8 hr 11/02/18 11/02/18 11/02/18 11:50 13:03 13:27 Temperature 98.3 F Pulse Rate 87 Respiratory 18 20 18 Rate Blood Pressure 122/37 (mmHg) O2 Sat by Pulse 96 Oximetry 11/02/18 11/02/18 11/02/18 16:05 16:10 16:13 Temperature 99.0 F Pulse Rate 92 Respiratory 22 22 22 Rate Blood Pressure 115/37 (mmHg) O2 Sat by Pulse 90 Oximetry Oxygen Devices in Use Now: Nasal Cannula Appearance: alert, NAD Eyes: No Scleral Icterus, PERRLA Ears/Nose/Mouth/Throat: - - dry oral mucosa Neck: NL Appearance and Movements; NL JVP, Trachea Midline Respiratory: Symmetrical Chest Expansion and Respiratory Effort, - - bibasilar crackles Cardiovascular: NL Sounds; No Murmurs; No JVD, RRR Extremities: - - bilateral lymphedema, right great toe plantar wound to the bone , bilateral cellulitis with weeping Neurological: Alert and Oriented x 3, - - general weakness Nutrition: Taking PO's Result Diagrams: 11/02/18 05:49 11/02/18 05:49 Additional Lab and Data: Results summarized from [facility]. WBC Elevated at 11.1 with 7% bands. Hemoglobin 7.3 Creatinine elevated at 1.8 Troponin 0.234 Lactic Acid elevated 2.8 UA negative for any Leukocyte esterase or nitrite. Albumin low at 1.3 CXR Bilateral infrahilar patchy opacitis, which may represent infiltrates. Microbiology and Other Data: Microbiology 11/01/18 04:05 Nasal Screen MRSA (PCR) - Final Nasal Mrsa Detected Diagnostic Imaging: *[facility]* [place] [address] Fax #: [phone] Transthoracic Echocardiogram Patient: Kathi Mendes : 1945 Study Date: 11/01/2018 Age: 73 Gender: F HR: 80 bpm Height: 62 in /157.5 cm BSA: 1.87 m^2 Weight: 189.6 lb /86.2 kg BMI: 34.8 kg/m^2 *Oncology Physician Assistant: * Lucie Rudd RDCS RN *Referring Physician: * John Calero *Reading Physician: * William Hobson MD Indications: Elevated troponin. SOB. History: Coronary artery disease. Cerebrovascular accident. Risk factors: Hypertension. Diabetes mellitus. Labs, prior tests, procedures, and surgery: Coronary artery bypass grafting. Conclusions Summary: 1. Left ventricle: The cavity size is normal. Wall thickness is mildly increased. Systolic function is normal. The estimated ejection fraction is 55-60%. Wall motion is normal; there are no regional wall motion abnormalities. 2. Right ventricle: The cavity size is mildly dilated. Systolic function is low normal. 3. Ventricular septum: Ventricular septal wall motion has a postoperative appearance. 4. Left atrium: The atrium is mildly to moderately dilated. 5. Tricuspid valve: There is mild-moderate regurgitation. 6. Pulmonary arteries: Systolic pressure is mildly increased, This report is only to be considered final once signed by the Provider(s) as displayed in the "<Electronically Signed by >" field (s). Absence of a signature indicates the report is in a draft status and still needs to be finalized. In the event this document was created by someone other than the signing Provider, the individual initiating the document will be listed in the "Entered by:" or "Dictated by:" coles. EKG Data: EKG Regular rhythm at 82BPM with abnormal P-axis. No obvious ST changes. Assess/Plan/Problems-Billing Assessment: This is a 73 year old female with hx of CAD/CABG, DM, HTN sent from [facility] for sepsis, anemia and elevated troponin - Patient Problems (1) Sepsis Comment: - Etiology appears to be cullulitis and right great toe ulcer/osteo? CXR with volume overload, no overt consolidation - LA 1.9 - [place] called with blood culture results, gram positive cocci in chains in 2 bottles; requested RN to call back for final results and susceptibility, continue vanco and zosyn for now (2) Diabetic toe ulcer Code(s): E11.621 - TYPE 2 DIABETES MELLITUS WITH FOOT ULCER; L97.509 - NON- PRESSURE CHRONIC ULCER OTH PRT UNSP FOOT W UNSP SEVERITY SNOMED Code(s): 286157983 Comment: - Follows at clinic in [place] - Concern for osteo, pending MRI read, ortho following, surgical intervention likely monday - Continue vanco and zosyn (3) Cellulitis Code(s): L03.90 - CELLULITIS, UNSPECIFIED SNOMED Code(s): 594239430 Comment: - Diabetes and chronic lymphedema - Patient unsure about vascular status and if shes had studies in the past - Local wound care, continue atbx (4) KELBY (acute kidney injury) Code(s): N17.9 - ACUTE KIDNEY FAILURE, UNSPECIFIED SNOMED Code(s): 14735147 Comment: - KELBY on CKD, continue gentle hydration and follow labs (5) Anemia Code(s): D64.9 - ANEMIA, UNSPECIFIED SNOMED Code(s): 001856887 Comment: - H&H dropped further to 7.7/24, no overt bleeding noted, sepsis? CKD? remains tachypneic/symptomatic - Transfused 2 units 11/01 with improvement - Monitor H&H (6) Diabetes Code(s): E11.9 - TYPE 2 DIABETES MELLITUS WITHOUT COMPLICATIONS SNOMED Code(s) : 78567186 Comment: - A1C6.8 - Continue lispro sliding scale and accucheck ACHS (7) Elevated troponin Code(s): R74.8 - ABNORMAL LEVELS OF OTHER SERUM ENZYMES SNOMED Code(s): 788966004 Comment: - Trop peaked, likely demand in presence of sepsis, EKG no obvious ischemia and no chest pain - hx of CABG 40 years ago, ECHO as above, EF 55-60%, EKG with no ST changes - Stable (8) HTN (hypertension) Code(s): I10 - ESSENTIAL (PRIMARY) HYPERTENSION SNOMED Code(s): 18297598 Comment: - Hold meds in presence of sepsis (9) DVT prophylaxis Code(s): Z29.9 - ENCOUNTER FOR PROPHYLACTIC MEASURES, UNSPECIFIED SNOMED Code( s): 247066453 Comment: - heparin sq (10) Full code status Code(s): Z78.9 - OTHER SPECIFIED HEALTH STATUS SNOMED Code(s): 089761831 Comment: Status and Disposition: Inpatient, guarded/improving. Plan for surgical intervention.
[2018-11-03] MEDS: Vancomycin(*) 1,250 MG in NS 0.9% 250 ML* 250 ML IVPB SCH (04:34)
[2018-11-03] MEDS: Heparin VIAL(*) 5000 UNITS/ML VIAL (FIVE THOUSAND) SUBCUT SCH ×3 (06:05→21:42)
[2018-11-03] MEDS: Insulin LISPRO* 1 UNITS UNIT SUBCUT SCH ×4 (08:14→21:42)
[2018-11-03] MEDS: amLODIPine TAB* 5 MG PO SCH (08:29)
[2018-11-03] MEDS: Metoprolol Succinate XL TAB* 25 MG PO SCH (08:29)
[2018-11-03] MEDS: Methadone TAB* 5 MG PO SCH ×2 (08:30→12:25)
[2018-11-03] MEDS: Gabapentin CAP(*) 100 MG PO SCH (08:30)
[2018-11-03] MEDS: Aspirin EC TAB* 81 MG TAB.EC PO SCH (08:30)
[2018-11-03] MEDS: Atorvastatin* 80 MG TAB PO SCH (08:31)
[2018-11-03] MEDS: Cholecalciferol TAB* 400 UNIT PO SCH (08:31)
[2018-11-03] MEDS: Piperacillin/Tazobac ADVAN(*) 3.375 GM in NS 0.9% 100 ML* 100 ML IVPB SCH ×3 (08:32→23:28)
--- NOTE | 2018-11-03 09:03 | PN ---
Progress Note - Progress Note Date of Service: 11/03/18 SOAP: Subjective: resting in bed more comfortably today with less pain, no significant complaints Objective: Vital Signs Temp Pulse Resp BP Pulse Ox 98.3 F 82 18 103/44 96 11/03/18 08:28 11/03/18 08:28 11/03/18 08:30 11/03/18 08:28 11/03/18 08:28 Laboratory Last Values WBC 10.7 10^3/uL (3.5-10.8) 11/02/18 05:49 RBC 2.80 10^6 /uL (3.70-4.87) L 11/02/18 05:49 Hgb 8.9 g/dL (12.0-16.0) L 11/02/18 05:49 Hct 26 % (35-47) L 11/02/18 05:49 MCV 94 fL (80-97) 11/02/18 05:49 MCH 32 pg (27-31) H 11/02/18 05:49 MCHC 34 g/dL (31-36) 11/02/18 05:49 RDW 18 % (10-15) H 11/02/18 05:49 Plt Count 116 10^3/uL (150-450) L 11/02/18 05:49 MPV 8.7 fL (7.4-10.4) 11/02/18 05:49 Neut % (Auto) 84.7 % 11/02/18 05:49 Lymph % (Auto) 7.5 % 11/02/18 05:49 [place] % (Auto) 6.4 % 11/02/18 05:49 Eos % (Auto) 1.3 % 11/02/18 05:49 Baso % (Auto) 0.1 % 11/02/18 05:49 Absolute Neuts (auto) 9.0 10^3/ul (1.5-7.7) H 11/02/18 05:49 Absolute Lymphs (auto) 0.8 10^3/ul (1.0-4.8) L 11/02/18 05:49 Absolute Monos (auto) 0.7 10^3/ul (0-0.8) 11/02/18 05:49 Absolute Eos (auto) 0.1 10^3/ul (0-0.6) 11/02/18 05:49 Absolute Basos (auto) 0.0 10^3/ul (0-0.2) 11/02/18 05:49 Absolute Nucleated RBC 0.0 10^3/ul 11/02/18 05:49 Nucleated RBC % 0.0 11/02/18 05:49 Sodium 134 mmol/L (135-145) L 11/02/18 05:49 Potassium 4.0 mmol/L (3.5-5.0) 11/02/18 05:49 Chloride 107 mmol/L (101-111) 11/02/18 05:49 Carbon Dioxide 20 mmol/L (22-32) L 11/02/18 05:49 Anion Gap 7 mmol/L (2-11) 11/02/18 05:49 BUN 39 mg/dL (6-24) H 11/02/18 05:49 Creatinine 1.28 mg/dL (0.51-0.95) H 11/02/18 05:49 Est GFR ( Amer) 49.5 (>60) 11/02/18 05:49 Est GFR (Non-Af Amer) 40.9 (>60) 11/02/18 05:49 BUN/Creatinine Ratio 30.5 (8-20) H 11/02/18 05:49 Glucose 108 mg/dL (70-100) H 11/02/18 05:49 POC Glucose (mg/dL) 130 mg/dL (70-100) H 11/03/18 07:37 Hemoglobin A1c 6.8 % (4.0-5.6) H 11/01/18 03:39 Lactic Acid 1.9 mmol/L (0.5-2.0) 11/01/18 00:46 Calcium 7.1 mg/dL (8.6-10.3) L 11/02/18 05:49 Iron < 17 ug/dL (50-212) L 11/01/18 00:46 TIBC 155 mcg/dL (250-450) L 11/01/18 00:46 % Saturation 11 % (15-55) L 11/01/18 00:46 Unsat Iron Binding < 140 ug/dL 11/01/18 00:46 Transferrin 111 mg/dL (203-362) L 11/01/18 00:46 Total Bilirubin 0.90 mg/dL (0.2-1.0) 11/02/18 05:49 Direct Bilirubin 0.40 mg/dL (0.03-0.18) H 11/02/18 05:49 Indirect Bilirubin 0.5 mg/dL (0.3-1.0) 11/02/18 05:49 AST 33 U/L (13-39) 11/02/18 05:49 ALT 12 U/L (7-52) 11/02/18 05:49 Alkaline Phosphatase 153 U/L (34-104) H 11/02/18 05:49 Troponin I 0.18 ng/mL (<0.04) H* 11/01/18 11:22 Total Protein 4.6 g/dL (6.4-8.9) L 11/02/18 05:49 Albumin 1.6 g/dL (3.2-5.2) L 11/02/18 05:49 Globulin 3.0 g/dL (2-4) 11/02/18 05:49 Albumin/Globulin Ratio 0.5 (1-3) L 11/02/18 05:49 Vitamin B12 > 1450 pg/mL (180-914) H 11/01/18 00:46 Folate > 20.00 ng/mL (>3.99) 11/01/18 00:46 Urine Color Yellow 11/01/18 02:18 Urine Appearance Cloudy 11/01/18 02:18 Urine pH 5.0 (5-9) 11/01/18 02:18 Ur Specific Mcgrann 1.011 (1.010-1.030) 11/01/18 02:18 Urine Protein 1+(30 mg/dl) (Negative) A 11/01/18 02:18 Urine Ketones Negative (Negative) 11/01/18 02:18 Urine Blood Negative (Negative) 11/01/18 02:18 Urine Nitrate Negative (Negative) 11/01/18 02:18 Urine Bilirubin Negative (Negative) 11/01/18 02:18 Urine Urobilinogen Negative (Negative) 11/01/18 02:18 Ur Leukocyte Esterase Negative (Negative) 11/01/18 02:18 Urine WBC (Auto) Trace(0-5/hpf) (Absent) 11/01/18 02:18 Urine RBC (Auto) 1+(3-5/hpf) (Absent) A 11/01/18 02:18 Urine Bacteria Absent (Absent) 11/01/18 02:18 Urine Yeast Present (Absent) A 11/01/18 02:18 Urine Glucose Negative (Negative) 11/01/18 02:18 Blood Type A Positive 11/01/18 03:12 Antibody Screen Negative 11/01/18 03:12 Crossmatch See Detail 11/01/18 03:12 PE: no change in the right great toe ulcer, B/L LE cellulitis no significant improvement Assessment: RLE osteo with large ulcer on plantar great toe Plan: 1) continue IV ABX 2) NWB RLE 3) Dr. Bustamante will eval on Monday for possible surgical intervention; will make NPO after midnight tomorrow.
--- NOTE | 2018-11-03 12:44 | PN ---
Subjective Date of Service: 11/03/18 Interval History: Ms. Mendes complains about the telemetry pack that pulls at her gown but otherwise feels that she is getting better. She remains weak and tired, falls asleep easily during conversation. She denies shortness of breath, chest pain, nausea, or abdominal pain. She is tolerating oral intake. Patient denies abdominal pain but was noted to have to urine output thus far today, bladder scan found 600ml urine. Objective Active Medications: Amlodipine Besylate (Norvasc Tab*) 5 mg PO DAILY [facility] Aspirin (Aspirin Ec Tab*) 81 mg PO DAILY [facility] Atorvastatin Calcium (Lipitor*) 80 mg PO DAILY [facility] Cholecalciferol (Vitamin D Tab*) 400 unit PO DAILY [facility] Dextrose (D50w Syringe 50 Ml*) 12.5 gm IV PUSH .FOR FS < 60 - SS PRN Gabapentin (Neurontin Cap(*)) 100 mg PO DAILY [facility] Heparin Sodium (Porcine) (Heparin Vial(*)) 5,000 units SUBCUT Q8HR [facility] Piperacillin Sod/Tazobactam (Sod 3.375 gm/ Sodium Chloride) 100 mls @ 25 mls/ hr IVPB Q8H [facility] Vancomycin HCl 1,250 mg/ (Sodium Chloride) 250 mls @ 166.667 mls/hr IVPB Q24H [facility] Insulin Human Lispro (Humalog*) 0 units SUBCUT ACHS [facility]; Protocol Methadone HCl (Dolophine Tab*) 5 mg PO QID [facility] Metoprolol Succinate (Toprol Xl Tab*) 12.5 mg PO DAILY [facility] Morphine Sulfate (Morphine 4 Mg/Ml Vial (1 Ml)) 2 mg IV Q4H PRN Pharmacy Consult (Vancomycin Per Pharmacy*) 1 note FOLLOW UP . PRN Pharmacy Consult (Zosyn Per Pharmacy*) 1 note FOLLOW UP . PRN Pharmacy Profile Note (Vancomycin Trough Check) 1 note FOLLOW UP 0400 ONE Vital Signs: Temp Pulse Resp BP Pulse Ox 99.1 F 84 18 120/55 95 11/03/18 11:49 11/03/18 11:49 11/03/18 12:25 11/03/18 11:49 11/03/18 11:49 Oxygen Devices in Use Now: None Appearance: Female lying in bed in NAD Eyes: No Scleral Icterus Ears/Nose/Mouth/Throat: Mucous Membranes Moist Neck: Trachea Midline Respiratory: Symmetrical Chest Expansion and Respiratory Effort, Clear to Auscultation Cardiovascular: NL Sounds; No Murmurs; No JVD, - - Edema to B LEs Extremities: - - Edema to B LEs Skin: - - Erythema to B LEs, Left great toe dressing CDI Neurological: Alert and Oriented x 3, NL Muscle Strength and Tone Nutrition: Taking PO's Result Diagrams: 11/02/18 05:49 11/02/18 05:49 Additional Lab and Data: . Microbiology and Other Data: . Diagnostic Imaging: . EKG Data: . Assess/Plan/Problems-Billing Assessment: Ms. Mendes is a 73 year old female with hx of CAD/CABG, DM, HTN transferred from [facility] on 11/01/18 for sepsis, anemia and elevated troponin. - Patient Problems (1) Sepsis Comment: - Etiology appears to be cellulitis and right great toe ulcer with osteomyelitis - [facility] called with blood culture results, gram positive cocci in chains in 2 bottles; requested RN to call back for final results and susceptibility, continue vanco and zosyn for now (2) Cellulitis Comment: - Diabetes and chronic lymphedema - Patient unsure about vascular status and if shes had studies in the past - Local wound care, continue atbx (3) Diabetic toe ulcer Comment: - Follows at clinic in [place] - MRI shows concern for osteomyelitis of the distal phalanx of the right great toe, ortho following, surgical intervention likely monday - Continue vanco and zosyn (4) KELBY (acute kidney injury) Comment: - KELBY on CKD, continue gentle hydration and follow labs (5) Anemia Comment: - H&H stable since transfusion, no longer tachypneic or tachycardic - No overt bleeding noted, sepsis? CKD? - Transfused 2 units 11/01 - Monitor H&H (6) Urinary retention Comment: - Suspect due to acute illness and immobility - Place dorman catheter. (7) Diabetes Comment: - HgbA1C 6.8 - Continue lispro sliding scale and accucheck ACHS (8) Elevated troponin Comment: - Trop peaked, likely demand in presence of sepsis, EKG no obvious ischemia and no chest pain - Hx of CABG 40 years ago, ECHO as above, EF 55-60%, EKG with no ST changes - Stable (9) HTN (hypertension) Comment: - Hold meds in presence of sepsis (10) Serum albumin decreased Comment: - Could protein supplementation (11) Chronic pain Comment: - Continue home methadone at reduced dose and patient seems tired and overly sedated. (12) DVT prophylaxis Comment: - heparin sq (13) Full code status Comment: Status and Disposition: Inpatient, guarded/improving. Plan for surgical intervention.
[2018-11-03 18:53] LABS: Urine Appearance Turbid; Urine Bacteria Absent (Absent); Urine Bilirubin Negative (Negative); Urine Blood Negative (Negative); Urine Color Amber; Urine Glucose Negative (Negative); Urine Ketones Negative (Negative); Urine Nitrite Negative (Negative); Urine Protein 2+(100 mg/dL) (Negative); Urine Red Blood Cell Trace(0-2/hpf) (Absent); Urine Specific Gravity 1.017 (1.010-1.030); Urine Squamous Epithelial Cell Present (Absent); Urine Urobilinogen Negative (Negative); Urine White Blood Cell 1+(6-10/hpf) (Absent)
[2018-11-03] MEDS: Acetaminophen TAB* 325 MG PO PRN (21:43)
[2018-11-04] MEDS ORDERED: Vancomycin Trough Check NOTE FOLLOW UP ONE (04:00)
[2018-11-04 04:06] LABS: Vancomycin Trough 20.5 mcg/mL
[2018-11-04] MEDS: Heparin VIAL(*) 5000 UNITS/ML VIAL (FIVE THOUSAND) SUBCUT SCH ×3 (05:49→22:05)
[2018-11-04] MEDS: Piperacillin/Tazobac ADVAN(*) 3.375 GM in NS 0.9% 100 ML* 100 ML IVPB SCH ×2 (07:14→16:13)
--- NOTE | 2018-11-04 07:27 | PN ---
Subjective Date of Service: 11/04/18 Interval History: Ms. Mendes reports that she is feeling better today. She reports that she does not take the methadone routinely but only when she has pain. She refused her methadone today. She denies other complaint including chest pain, SOB, nausea, or abdominal pain. Objective Active Medications: Acetaminophen (Tylenol Tab*) 650 mg PO Q4H PRN Amlodipine Besylate (Norvasc Tab*) 5 mg PO DAILY [facility] Aspirin (Aspirin Ec Tab*) 81 mg PO DAILY [facility] Atorvastatin Calcium (Lipitor*) 80 mg PO DAILY [facility] Cholecalciferol (Vitamin D Tab*) 400 unit PO DAILY [facility] Dextrose (D50w Syringe 50 Ml*) 12.5 gm IV PUSH .FOR FS < 60 - SS PRN Gabapentin (Neurontin Cap(*)) 100 mg PO DAILY [facility] Heparin Sodium (Porcine) (Heparin Vial(*)) 5,000 units SUBCUT Q8HR [facility] Piperacillin Sod/Tazobactam (Sod 3.375 gm/ Sodium Chloride) 100 mls @ 25 mls/ hr IVPB Q8H [facility] Vancomycin HCl 1,000 mg/ (Sodium Chloride) 250 mls @ 166.667 mls/hr IVPB Q24H [facility] Insulin Human Lispro (Humalog*) 0 units SUBCUT ACHS [facility]; Protocol Methadone HCl (Dolophine Tab*) 2.5 mg PO BID [facility] Metoprolol Succinate (Toprol Xl Tab*) 12.5 mg PO DAILY [facility] Pharmacy Consult (Vancomycin Per Pharmacy*) 1 note FOLLOW UP . PRN Pharmacy Consult (Zosyn Per Pharmacy*) 1 note FOLLOW UP . PRN Vital Signs: Temp Pulse Resp BP Pulse Ox 98.0 F 88 18 128/41 95 11/03/18 23:35 11/03/18 23:35 11/03/18 23:35 11/03/18 23:35 11/03/18 23:35 Oxygen Devices in Use Now: Nasal Cannula Appearance: Female lying in bed in NAD Eyes: No Scleral Icterus Ears/Nose/Mouth/Throat: Mucous Membranes Moist Neck: Trachea Midline Respiratory: Symmetrical Chest Expansion and Respiratory Effort, Clear to Auscultation Cardiovascular: - - +3 edema Abdominal: NL Sounds; No Tenderness; No Distention Extremities: - - +3 edema Skin: - - Right great toe large plantar ulceration, minimal drainage and erythema, BLEs with severe edema and multiple small weeping ulcerations Neurological: Alert and Oriented x 3, NL Muscle Strength and Tone Nutrition: Taking PO's Result Diagrams: 11/04/18 14:26 11/04/18 14:26 Additional Lab and Data: . Microbiology and Other Data: . Diagnostic Imaging: . EKG Data: . Assess/Plan/Problems-Billing Assessment: Ms. Mendes is a 73 year old female with hx of CAD/CABG, DM, HTN transferred from [facility] on 11/01/18 for sepsis, anemia and elevated troponin. - Patient Problems (1) Sepsis Comment: - Afebrile, vitals stable, appears better than yesterday. WBC rising today. CRP added on (~90). - Etiology is cellulitis and right great toe ulcer with osteomyelitis - Blood cultures from [place] with Strep, sensitive to ceftriaxone (report on chart) (2) Streptococcal bacteremia Comment: - Transthoracic echo negative for vegetation - Continue ceftriaxone - Repeat cultures with no growth to date - ID consult placed (3) Cellulitis Comment: - Due to diabetes, chronic lymphedema, and low albumin - Patient unsure about vascular status and if shes had studies in the past - Local wound care, elevate legs, switch to ceftriaxone (4) Diabetic toe ulcer Comment: - Follows at clinic in [place] - MRI shows concern for osteomyelitis of the distal phalanx of the right great toe, ortho following, surgical intervention likely monday - Switch to ceftriaxone (5) KELBY (acute kidney injury) Comment: - Worsening KELBY on CKD - Given low protein will check 24 hr urine for protein and creatinine - Patient was on vanco and zosyn which may have contributed - May be intravascularly dry given significant third spacing with low albumin and lymphedema (6) Anemia Comment: - H&H stable since transfusion, no longer tachypneic or tachycardic - No overt bleeding noted, sepsis? CKD? - Transfused 2 units 11/01 - Monitor H&H (7) Urinary retention Comment: - Suspect due to acute illness and immobility, perhaps due to narcotics - Place dorman catheter, trial void in 1-2 days if stable. (8) Diabetes Comment: - HgbA1C 6.8 - Continue lispro sliding scale and accucheck ACHS (9) Elevated troponin Comment: - Trop peaked, likely demand in presence of sepsis, EKG no obvious ischemia and no chest pain - Hx of CABG 40 years ago, ECHO as above, EF 55-60%, EKG with no ST changes - Stable (10) HTN (hypertension) Comment: - Hold meds in presence of sepsis (11) Serum albumin decreased Comment: - Encourage protein supplementation - Nutrition consult placed - Workup for urinary protein loss as per above (12) Chronic pain Comment: - Much more alert on reduced dose, continue methadone 2.5mg q6h prn. (13) DVT prophylaxis Comment: - heparin sq (14) Full code status Comment: Status and Disposition: Inpatient, guarded/improving. Plan for surgical intervention.
[2018-11-04] MEDS ORDERED: Vancomycin(*) 1,000 MG in NS 0.9% 250 ML* 250 ML IVPB SCH ×2 (08:00→12:00)
[2018-11-04] MEDS: Insulin LISPRO* 1 UNITS UNIT SUBCUT SCH ×4 (08:07→22:04)
[2018-11-04] MEDS ORDERED: Methadone TAB* 5 MG PO SCH (09:00)
[2018-11-04] MEDS: amLODIPine TAB* 5 MG PO SCH (09:54)
[2018-11-04] MEDS: Cholecalciferol TAB* 400 UNIT PO SCH (09:54)
[2018-11-04] MEDS: Atorvastatin* 80 MG TAB PO SCH (09:54)
[2018-11-04] MEDS: Acetaminophen TAB* 325 MG PO PRN ×3 (09:55→22:03)
[2018-11-04] MEDS: Aspirin EC TAB* 81 MG TAB.EC PO SCH (09:55)
[2018-11-04] MEDS: Metoprolol Succinate XL TAB* 25 MG PO SCH (09:56)
[2018-11-04] MEDS: Gabapentin CAP(*) 100 MG PO SCH (10:04)
[2018-11-04] MEDS ORDERED: Methadone TAB* 5 MG PO PRN (12:35)
[2018-11-04 14:54] LABS: ABS Eosinophils 0.3 10^3/ul (0-0.6); ABS Lymphocytes 1.2 10^3/ul (1.0-4.8); ABS Monocytes 1.1 10^3/ul (0-0.8); ABS Neutrophils 16.7 10^3/ul (1.5-7.7); Eosinophil % 1.8 %; Hematocrit 31 % (35-47); Hemoglobin 10.1 g/dL (12.0-16.0); Lymphocyte % 6.3 %; Mean Corpuscular HGB Conc 33 g/dL (31-36); Mean Corpuscular Hemoglobin 31 pg (27-31); Mean Corpuscular Volume 96 fL (80-97); Mean Platelet Volume 9.5 fL (7.4-10.4); Nucleated Red Blood Cells % 0.1; Platelet Count 130 10^3/uL (150-450); Red Blood Count 3.24 10^6 /uL (3.70-4.87); Red Cell Distribution Width 19 % (10-15); White Blood Count 19.3 10^3/uL (3.5-10.8)
[2018-11-04 15:11] LABS: BUN/Creatinine Ratio 26.5 (8-20); Calcium 7.3 mg/dL (8.6-10.3); EGFR African American 31.5 (>60); EGFR Non-African American 26.1 (>60); Potassium 4.2 mmol/L (3.5-5.0)
[2018-11-04] MEDS ORDERED: Cefepime 1 GM in Dextrose(*) 1 GM/50 ML BAG IV SCH ×2 (17:00→21:30)
[2018-11-04 17:32] LABS: C Reactive Protein 98.07 mg/L (<8.01)
[2018-11-04] MEDS: Methadone TAB* 5 MG PO PRN (17:57)
[2018-11-04 18:45] LABS: Prealbumin < 3 mg/dL (18-38)
[2018-11-04] MEDS ORDERED: cefTRIAXone(*) 1 GM in NS 0.9% 50 ML* 50 ML IVPB SCH (21:30)
[2018-11-05] MEDS: Methadone TAB* 5 MG PO PRN ×3 (04:09→20:52)
[2018-11-05] MEDS: Heparin VIAL(*) 5000 UNITS/ML VIAL (FIVE THOUSAND) SUBCUT SCH ×3 (04:56→21:17)
[2018-11-05 07:15] LABS: ABS Basophils 0.1 10^3/ul (0-0.2); ABS Eosinophils 0.4 10^3/ul (0-0.6); ABS Lymphocytes 1.8 10^3/ul (1.0-4.8); ABS Monocytes 1.1 10^3/ul (0-0.8); ABS Neutrophils 16.8 10^3/ul (1.5-7.7); Eosinophil % 2.1 %; Hematocrit 30 % (35-47); Hemoglobin 9.9 g/dL (12.0-16.0); Lymphocyte % 8.7 %; Mean Corpuscular HGB Conc 33 g/dL (31-36); Mean Corpuscular Hemoglobin 31 pg (27-31); Mean Corpuscular Volume 95 fL (80-97); Mean Platelet Volume 9.6 fL (7.4-10.4); Platelet Count 143 10^3/uL (150-450); Red Blood Count 3.19 10^6 /uL (3.70-4.87); Red Cell Distribution Width 18 % (10-15); White Blood Count 20.1 10^3/uL (3.5-10.8)
[2018-11-05] MEDS: Insulin LISPRO* 1 UNITS UNIT SUBCUT SCH ×4 (07:32→22:29)
[2018-11-05 07:34] LABS: Calcium 7.2 mg/dL (8.6-10.3); EGFR Non-African American 22.3 (>60); Potassium 4.4 mmol/L (3.5-5.0)
[2018-11-05] MEDS: Metoprolol Succinate XL TAB* 25 MG PO SCH (08:49)
[2018-11-05] MEDS ORDERED: Buffered Lidocaine 1% SYRIN* 1 ML/SYRINGE INTRADERM ONE (08:51)
[2018-11-05] MEDS: Cholecalciferol TAB* 400 UNIT PO SCH (08:53)
[2018-11-05] MEDS: Gabapentin CAP(*) 100 MG PO SCH (08:53)
[2018-11-05] MEDS: Atorvastatin* 80 MG TAB PO SCH (08:53)
[2018-11-05] MEDS: amLODIPine TAB* 5 MG PO SCH (08:53)
[2018-11-05] MEDS: Aspirin EC TAB* 81 MG TAB.EC PO SCH (08:53)
[2018-11-05] MEDS ORDERED: Midazolam* 1 MG/ML 2 ML VIAL (2 MG) ONE (09:04)
[2018-11-05] MEDS ORDERED: fentaNYL* 50 MCG/ML 2 ML VIAL (100 MCG VIAL) ONE (09:04)
[2018-11-05] MEDS ORDERED: Lidocaine 2% PF * 5 ML VIAL ONE (09:04)
[2018-11-05] MEDS ORDERED: Propofol* 10 MG/ML 20 ML BTL ONE (09:04)
[2018-11-05] MEDS ORDERED: cefTRIAXone(*) 1 GM ADVAN/BAG ONE (09:50)
[2018-11-05] MEDS ORDERED: Bupivacaine 0.5%* 50 ML VIAL ONE (10:05)
[2018-11-05] MEDS ORDERED: HYDROmorphone INJ1* 1 MG/ML SYRINGE IV PRN (10:30)
[2018-11-05] MEDS ORDERED: oxyCODONE TAB* 5 MG TAB PO PRN (10:30)
[2018-11-05] MEDS ORDERED: Naloxone* 0.4 MG/ML 1 ML VIAL IV PRN (10:30)
[2018-11-05] MEDS ORDERED: Ondansetron INJ* 2 MG/ML VIAL IV PRN (10:30)
[2018-11-05] MEDS: Acetaminophen TAB* 325 MG PO PRN ×2 (12:40→20:51)
[2018-11-05] MEDS ORDERED: HYDROmorphone INJ1* 1 MG/ML SYRINGE ONE (12:47)
[2018-11-05] MEDS: NS 0.9% 1000 ML** 1,000 ML IV SCH (15:55)
--- NOTE | 2018-11-05 17:32 | PN ---
Subjective Date of Service: 11/05/18 Interval History: Patient evaluated in bed after returning from OR. Patient is awake, alert, and engaging in ROS. Patient reports pain in bilateral LE with right worse than left. Patient denies cp, palpitations, sob, fever, chills, nausea. Received update from RN that patient only had 100 mls urine output from 0700 to 1500. She also reports that it was reported that patient only received 300 mls ivf while in OR. In addition, patient has low BP with systolic in 80s, but asymptomatic. Objective Active Medications: Acetaminophen (Tylenol Tab*) 650 mg PO Q4H PRN PRN Reason: FEVER/PAIN Last Admin: 11/05/18 12:40 Dose: 650 mg Amlodipine Besylate (Norvasc Tab*) 5 mg PO DAILY [facility] Last Admin: 11/05/18 08:53 Dose: Not Given Aspirin (Aspirin Ec Tab*) 81 mg PO DAILY [facility] Last Admin: 11/05/18 08:53 Dose: Not Given Atorvastatin Calcium (Lipitor*) 80 mg PO DAILY [facility] Last Admin: 11/05/18 08:53 Dose: Not Given Cholecalciferol (Vitamin D Tab*) 400 unit PO DAILY [facility] Last Admin: 11/05/18 08:53 Dose: Not Given Dextrose (D50w Syringe 50 Ml*) 12.5 gm IV PUSH .FOR FS < 60 - SS PRN PRN Reason: FS < 60 Gabapentin (Neurontin Cap(*)) 100 mg PO DAILY [facility] Last Admin: 11/05/18 08:53 Dose: Not Given Heparin Sodium (Porcine) (Heparin Vial(*)) 5,000 units SUBCUT Q8HR [facility] Last Admin: 11/05/18 14:13 Dose: 5,000 units Ceftriaxone Sodium 1 gm/ (Sodium Chloride) 50 mls @ 200 mls/hr IVPB 0900 [facility] Sodium Chloride (Ns 0.9% 1000 Ml) 1,000 mls @ 75 mls/hr IV PER RATE [facility] Last Admin: 11/05/18 15:55 Dose: 75 mls/hr Insulin Human Lispro (Humalog*) 0 units SUBCUT ACHS [facility]; Protocol Last Admin: 11/05/18 17:09 Dose: Not Given Methadone HCl (Dolophine Tab*) 2.5 mg PO Q6H PRN PRN Reason: PAIN Last Admin: 11/05/18 14:13 Dose: 2.5 mg Metoprolol Succinate (Toprol Xl Tab*) 12.5 mg PO DAILY [facility] Last Admin: 11/05/18 08:49 Dose: 12.5 mg Pharmacy Consult ([facility] Per Pharmacy*) 1 note FOLLOW UP . PRN PRN Reason: PER PROTOCOL Vital Signs - 8 hr 11/05/18 11/05/18 11/05/18 10:07 10:38 10:40 Temperature 97.5 F 97.2 F Pulse Rate 68 73 77 Respiratory 18 14 21 Rate Blood Pressure 95/41 84/40 78/42 (mmHg) O2 Sat by Pulse 97 100 100 Oximetry 11/05/18 11/05/18 11/05/18 10:42 10:45 10:50 Temperature Pulse Rate 70 67 68 Respiratory 18 20 17 Rate Blood Pressure 86/48 86/46 (mmHg) O2 Sat by Pulse 100 100 100 Oximetry 11/05/18 11/05/18 11/05/18 10:55 12:36 14:13 Temperature Pulse Rate 69 70 Respiratory 16 18 18 Rate Blood Pressure 103/53 102/46 (mmHg) O2 Sat by Pulse 98 99 Oximetry 11/05/18 11/05/18 11/05/18 15:18 15:30 16:00 Temperature 98.6 F Pulse Rate 86 Respiratory 22 Rate Blood Pressure 86/38 (mmHg) O2 Sat by Pulse 97 97 Oximetry 11/05/18 16:27 Temperature Pulse Rate Respiratory 16 Rate Blood Pressure (mmHg) O2 Sat by Pulse Oximetry Oxygen Devices in Use Now: None Appearance: Comfortable, NAD Eyes: No Scleral Icterus Ears/Nose/Mouth/Throat: Clear Oropharnyx, Mucous Membranes Moist Neck: NL Appearance and Movements; NL JVP Respiratory: Symmetrical Chest Expansion and Respiratory Effort, Clear to Auscultation Cardiovascular: NL Sounds; No Murmurs; No JVD, - - Bilateral +1 pitting edema in LE Abdominal: NL Sounds; No Tenderness; No Distention Lymphatic: No Cervical Adenopathy Extremities: - - Edema as above. Right LE wrapped with DELFINO Skin: - - Wrap to RLE CDI Neurological: Alert and Oriented x 3, NL Muscle Strength and Tone Nutrition: Taking PO's Result Diagrams: 11/05/18 06:47 11/05/18 06:47 Additional Lab and Data: Laboratory Results - last 24 hr 11/04/18 11/04/18 11/04/18 03:24 14:26 20:39 WBC RBC Hgb Hct MCV MCH MCHC RDW Plt Count MPV Neut % (Auto) Lymph % (Auto) [place] % (Auto) Eos % (Auto) Baso % (Auto) Absolute Neuts (auto) Absolute Lymphs (auto) Absolute Monos (auto) Absolute Eos (auto) Absolute Basos (auto) Absolute Nucleated RBC Nucleated RBC % Sodium Potassium Chloride Carbon Dioxide Anion Gap BUN Creatinine Est GFR ( Amer) Est GFR (Non-Af Amer) BUN/Creatinine Ratio Glucose POC Glucose (mg/dL) 179 H Calcium C-Reactive Protein 98.07 H Prealbumin < 3 L Vancomycin Trough 20.5 11/05/18 11/05/18 11/05/18 06:47 06:47 07:24 WBC 20.1 H RBC 3.19 L Hgb 9.9 L Hct 30 L MCV 95 MCH 31 MCHC 33 RDW 18 H Plt Count 143 L MPV 9.6 Neut % (Auto) 83.3 Lymph % (Auto) 8.7 [place] % (Auto) 5.6 Eos % (Auto) 2.1 Baso % (Auto) 0.3 Absolute Neuts (auto) 16.8 H Absolute Lymphs (auto) 1.8 Absolute Monos (auto) 1.1 H Absolute Eos (auto) 0.4 Absolute Basos (auto) 0.1 Absolute Nucleated RBC 0.0 Nucleated RBC % 0.0 Sodium 133 L Potassium 4.4 Chloride 108 Carbon Dioxide 19 L Anion Gap 6 BUN 54 H Creatinine 2.16 H Est GFR ( Amer) 27.0 Est GFR (Non-Af Amer) 22.3 BUN/Creatinine Ratio 25.0 H Glucose 98 POC Glucose (mg/dL) 119 H Calcium 7.2 L C-Reactive Protein Prealbumin Vancomycin Trough 11/05/18 11/05/18 11/05/18 09:09 12:03 17:03 WBC RBC Hgb Hct MCV MCH MCHC RDW Plt Count MPV Neut % (Auto) Lymph % (Auto) [place] % (Auto) Eos % (Auto) Baso % (Auto) Absolute Neuts (auto) Absolute Lymphs (auto) Absolute Monos (auto) Absolute Eos (auto) Absolute Basos (auto) Absolute Nucleated RBC Nucleated RBC % Sodium Potassium Chloride Carbon Dioxide Anion Gap BUN Creatinine Est GFR ( Amer) Est GFR (Non-Af Amer) BUN/Creatinine Ratio Glucose POC Glucose (mg/dL) 127 H 109 H 91 Calcium C-Reactive Protein Prealbumin Vancomycin Trough Microbiology and Other Data: Microbiology 11/04/18 15:30 Stool Stool Gross Appearance - Final 11/04/18 15:30 Stool Shiga Toxin I & II - Final Negative Shiga Toxin 1 & 2 11/04/18 15:30 Stool Stool Occult Blood (IKE) - Final 11/03/18 17:20 Urine Urine Culture - Final No Growth (<1,000 CFU/mL) 11/01/18 03:12 Blood Venous Aerobic Blood Culture - Final Not Reportable 11/01/18 03:12 Blood Venous Anaerobic Blood Culture - Final Not Reportable 11/01/18 03:12 Blood Venous Blood Culture - Preliminary No Growth Day 4 11/01/18 00:46 Blood Venous Aerobic Blood Culture - Final Not Reportable 11/01/18 00:46 Blood Venous Anaerobic Blood Culture - Final Not Reportable 11/01/18 00:46 Blood Venous Blood Culture - Preliminary No Growth Day 4 10/31/18 19:45 Blood Venous Aerobic Blood Culture - Final Strep Dysgalactiae (Grp C) 10/31/18 19:45 Blood Venous Anaerobic Blood Culture - Preliminary No Growth Day 2 11/01/18 02:18 Urine Urine Culture - Final No Growth (<1,000 CFU/mL) 11/01/18 04:05 Nasal Nasal Screen MRSA (PCR) - Final Mrsa Detected Diagnostic Imaging: . EKG Data: . Assess/Plan/Problems-Billing Assessment: Ms. Mendes is a 73 year old female with hx of CAD/CABG, DM, HTN transferred from [facility] on 11/01/18 for sepsis, anemia and elevated troponin. - Patient Problems (1) Sepsis Comment: - S/P Right great toe amputation due to cellulitis and osteomyelitis. POD 0. - Afebrile - Blood cultures from [place] with Strep, sensitive to ceftriaxone (report on chart) - Repeat blood cultures no growth so far - WBC increasing - Consult placed for ID who will see patient tomorrow. (2) KELBY (acute kidney injury) Comment: - Creatinine 2.16. Suspected KELBY on CKD - Awaiting 24 hr urine for protein and creatinine - FEUrea ordered - Patient was on vanco and zosyn which may have contributed as the combination is nephrotoxic - I also suspect patient is intravascularly dry given low albumin, hypotension, low urine output and edema. - Gentle IVF hydration ordered - Monitor closely (3) Anemia Comment: - Received 2 units PRBC 11/01 - H&H stable since transfusion - No overt bleeding noted. Stool negative. - Suspected secondary to KELBY, CKD, and Sepsis - Monitor H&H (4) Cellulitis Comment: - Cont Ceftriaxone - ID to see patient tomorrow - Patient unsure about vascular status and if shes had studies in the past - Elevate legs (5) Chronic pain Comment: - Patient on Methadone 5 mg QID at home - Dose was reduced on 11/03 due to over - Cont reduced dose of Methadone 2.5mg q6h prn. (6) Diabetes Comment: - HgbA1C 6.8 - Continue lispro sliding scale and accucheck ACHS (7) Diabetic toe ulcer Comment: - S/P Right great toe amputation due to cellulitis and osteomyelitis. POD 0. - Ortho following - Cont ceftriaxone - ID to see patient tomorrow - PT/OT consult ordered (8) Elevated troponin Comment: - No cp today - Trop peaked, likely demand in presence of sepsis, EKG no obvious ischemia and no chest pain - Hx of CABG 40 years ago, ECHO as above, EF 55-60%, EKG with no ST changes - Stable (9) HTN (hypertension) SNOMED Code(s): 75100071 Comment: - Hold Norvasc, Lisinopril, and Lasix given hypotension - Cont Metoprolol for now but consider holding if BP remains low (10) Serum albumin decreased Comment: - Repeat Albumin tomorrow - Encourage protein supplementation - Nutrition consult placed - Workup for urinary protein loss as per above (11) Streptococcal bacteremia Comment: - ID to see patient tomorrow - Blood cultures from [facility] on 10/31 grew Strep Dysgalactiae - Transthoracic echo negative for vegetation - Continue ceftriaxone - Repeat cultures with no growth to date (12) Urinary retention Comment: - Cont dorman due to previous urine retention and closer monitoring of fluid status - Possible trial void in 1-2 days if stable. (13) Low urine output Comment: - Low urine output of approx 100 mls between 0700 and 1500. - IVF ordered. (14) Hypotension Comment: - Noted to have hypotension today with systolics in the mid 80s. - Asymptomatic. - Afebrile - No tachycardia - Gentle IVF ordered - Hold home Norvasc (15) DVT prophylaxis Comment: - heparin sq (16) Full code status Comment: Status and Disposition: Inpatient, guarded/improving. Attending: Zonia Calero
[2018-11-05 19:01] LABS: Urine Creatinine Concentration 114.95 mg/dL
[2018-11-06] MEDS: NS 0.9% 1000 ML** 1,000 ML IV SCH ×2 (04:00→20:23)
[2018-11-06] MEDS: Heparin VIAL(*) 5000 UNITS/ML VIAL (FIVE THOUSAND) SUBCUT SCH ×3 (05:15→22:49)
[2018-11-06 05:31] LABS: Hematocrit 32 % (35-47); Hemoglobin 10.4 g/dL (12.0-16.0); Mean Corpuscular HGB Conc 33 g/dL (31-36); Mean Corpuscular Hemoglobin 31 pg (27-31); Mean Corpuscular Volume 95 fL (80-97); Mean Platelet Volume 9.4 fL (7.4-10.4); Platelet Count 153 10^3/uL (150-450); Red Blood Count 3.36 10^6 /uL (3.70-4.87); Red Cell Distribution Width 18 % (10-15); White Blood Count 20.3 10^3/uL (3.5-10.8)
[2018-11-06 05:49] LABS: ALT 9 U/L (7-52); AST 30 U/L (13-39); Alkaline Phosphatase 319 U/L (34-104); BUN/Creatinine Ratio 24.4 (8-20); Blood Urea Nitrogen 59 mg/dL (6-24); CO2 Carbon Dioxide 21 mmol/L (22-32); Calcium 7.3 mg/dL (8.6-10.3); Chloride 107 mmol/L (101-111); EGFR African American 23.7 (>60); EGFR Non-African American 19.6 (>60); Glucose 118 mg/dL (70-100); Indirect Bilirubin 0.3 mg/dL (0.3-1.0); Sodium 133 mmol/L (135-145); Total Protein 4.5 g/dL (6.4-8.9)
[2018-11-06 05:51] LABS: Albumin < 1.5 g/dL (3.2-5.2); Albumin/Globulin Ratio 0.5 (1-3); Anion Gap 5 mmol/L (2-11); Potassium 5.1 mmol/L (3.5-5.0)
[2018-11-06 06:03] LABS: ABS Basophils 0.2 10^3/ul (0-0.2); ABS Eosinophils 0.4 10^3/ul (0-0.6); ABS Lymphocytes 1.9 10^3/ul (1.0-4.8); ABS Monocytes 1.1 10^3/ul (0-0.8); ABS Neutrophils 16.7 10^3/ul (1.5-7.7); Lymphocyte % 9.5 %
[2018-11-06] MEDS: Insulin LISPRO* 1 UNITS UNIT SUBCUT SCH ×4 (08:34→21:50)
[2018-11-06] MEDS ORDERED: Albumin Human 5%* 12.5 GM/250 ML BTL IV ONE ×2 (09:42→21:00)
--- NOTE | 2018-11-06 10:32 | PN ---
Subjective Date of Service: 11/06/18 Interval History: Discussed patient's status and plan of care with RN. Per RN patient is having occasional "soft" blood pressures and continues to have low urine output. Patient assessed in bed. Patient reports "pain all over". Patient has h Objective Active Medications: Acetaminophen (Tylenol Tab*) 650 mg PO Q4H PRN PRN Reason: FEVER/PAIN Last Admin: 11/05/18 20:51 Dose: 650 mg Aspirin (Aspirin Ec Tab*) 81 mg PO DAILY [facility] Last Admin: 11/05/18 08:53 Dose: Not Given Atorvastatin Calcium (Lipitor*) 80 mg PO DAILY [facility] Last Admin: 11/05/18 08:53 Dose: Not Given Cholecalciferol (Vitamin D Tab*) 400 unit PO DAILY [facility] Last Admin: 11/05/18 08:53 Dose: Not Given Dextrose (D50w Syringe 50 Ml*) 12.5 gm IV PUSH .FOR FS < 60 - SS PRN PRN Reason: FS < 60 Gabapentin (Neurontin Cap(*)) 100 mg PO DAILY [facility] Last Admin: 11/05/18 08:53 Dose: Not Given Heparin Sodium (Porcine) (Heparin Vial(*)) 5,000 units SUBCUT Q8HR [facility] Last Admin: 11/06/18 05:15 Dose: 5,000 units Ceftriaxone Sodium 1 gm/ (Sodium Chloride) 50 mls @ 200 mls/hr IVPB 0900 [facility] Sodium Chloride (Ns 0.9% 1000 Ml) 1,000 mls @ 75 mls/hr IV PER RATE [facility] Last Admin: 11/06/18 04:00 Dose: 75 mls/hr Insulin Human Lispro (Humalog*) 0 units SUBCUT ACHS [facility]; Protocol Last Admin: 11/06/18 08:34 Dose: Not Given Methadone HCl (Dolophine Tab*) 2.5 mg PO Q6H PRN PRN Reason: PAIN Last Admin: 11/05/18 20:52 Dose: 2.5 mg Metoprolol Succinate (Toprol Xl Tab*) 12.5 mg PO DAILY [facility] Last Admin: 11/05/18 08:49 Dose: 12.5 mg Vital Signs - 8 hr 11/06/18 04:09 Temperature 98.0 F Pulse Rate 79 Respiratory 18 Rate Blood Pressure 110/33 (mmHg) O2 Sat by Pulse 97 Oximetry Oxygen Devices in Use Now: Nasal Cannula Result Diagrams: 11/06/18 05:26 11/06/18 05:26 Additional Lab and Data: Laboratory Results - last 24 hr 11/04/18 11/04/18 11/04/18 03:24 14:26 20:39 WBC RBC Hgb Hct MCV MCH MCHC RDW Plt Count MPV Neut % (Auto) Lymph % (Auto) [place] % (Auto) Eos % (Auto) Baso % (Auto) Absolute Neuts (auto) Absolute Lymphs (auto) Absolute Monos (auto) Absolute Eos (auto) Absolute Basos (auto) Absolute Nucleated RBC Nucleated RBC % Sodium Potassium Chloride Carbon Dioxide Anion Gap BUN Creatinine Est GFR ( Amer) Est GFR (Non-Af Amer) BUN/Creatinine Ratio Glucose POC Glucose (mg/dL) 179 H Calcium C-Reactive Protein 98.07 H Prealbumin < 3 L Vancomycin Trough 20.5 11/05/18 11/05/18 11/05/18 06:47 06:47 07:24 WBC 20.1 H RBC 3.19 L Hgb 9.9 L Hct 30 L MCV 95 MCH 31 MCHC 33 RDW 18 H Plt Count 143 L MPV 9.6 Neut % (Auto) 83.3 Lymph % (Auto) 8.7 [place] % (Auto) 5.6 Eos % (Auto) 2.1 Baso % (Auto) 0.3 Absolute Neuts (auto) 16.8 H Absolute Lymphs (auto) 1.8 Absolute Monos (auto) 1.1 H Absolute Eos (auto) 0.4 Absolute Basos (auto) 0.1 Absolute Nucleated RBC 0.0 Nucleated RBC % 0.0 Sodium 133 L Potassium 4.4 Chloride 108 Carbon Dioxide 19 L Anion Gap 6 BUN 54 H Creatinine 2.16 H Est GFR ( Amer) 27.0 Est GFR (Non-Af Amer) 22.3 BUN/Creatinine Ratio 25.0 H Glucose 98 POC Glucose (mg/dL) 119 H Calcium 7.2 L C-Reactive Protein Prealbumin Vancomycin Trough 11/05/18 11/05/18 11/05/18 09:09 12:03 17:03 WBC RBC Hgb Hct MCV MCH MCHC RDW Plt Count MPV Neut % (Auto) Lymph % (Auto) [place] % (Auto) Eos % (Auto) Baso % (Auto) Absolute Neuts (auto) Absolute Lymphs (auto) Absolute Monos (auto) Absolute Eos (auto) Absolute Basos (auto) Absolute Nucleated RBC Nucleated RBC % Sodium Potassium Chloride Carbon Dioxide Anion Gap BUN Creatinine Est GFR ( Amer) Est GFR (Non-Af Amer) BUN/Creatinine Ratio Glucose POC Glucose (mg/dL) 127 H 109 H 91 Calcium C-Reactive Protein Prealbumin Vancomycin Trough Microbiology and Other Data: Microbiology 11/04/18 15:30 Stool Stool Gross Appearance - Final 11/04/18 15:30 Stool Shiga Toxin I & II - Final Negative Shiga Toxin 1 & 2 11/04/18 15:30 Stool Stool Occult Blood (IKE) - Final 11/03/18 17:20 Urine Urine Culture - Final No Growth (<1,000 CFU/mL) 11/01/18 03:12 Blood Venous Aerobic Blood Culture - Final Not Reportable 11/01/18 03:12 Blood Venous Anaerobic Blood Culture - Final Not Reportable 11/01/18 03:12 Blood Venous Blood Culture - Preliminary No Growth Day 4 11/01/18 00:46 Blood Venous Aerobic Blood Culture - Final Not Reportable 11/01/18 00:46 Blood Venous Anaerobic Blood Culture - Final Not Reportable 11/01/18 00:46 Blood Venous Blood Culture - Preliminary No Growth Day 4 10/31/18 19:45 Blood Venous Aerobic Blood Culture - Final Strep Dysgalactiae (Grp C) 10/31/18 19:45 Blood Venous Anaerobic Blood Culture - Preliminary No Growth Day 2 11/01/18 02:18 Urine Urine Culture - Final No Growth (<1,000 CFU/mL) 11/01/18 04:05 Nasal Nasal Screen MRSA (PCR) - Final Mrsa Detected Diagnostic Imaging: . EKG Data: . Assess/Plan/Problems-Billing Assessment: Ms. Mendes is a 73 year old female with hx of CAD/CABG, DM, HTN transferred from [facility] on 11/01/18 for sepsis, anemia and elevated troponin. - Patient Problems (1) Sepsis Comment: - S/P Right great toe amputation due to cellulitis and osteomyelitis. POD 0. - Afebrile - Blood cultures from [place] with Strep, sensitive to ceftriaxone (report on chart) - Repeat blood cultures no growth so far - WBC increasing - Consult placed for ID who will see patient tomorrow. (2) KELBY (acute kidney injury) Comment: - Creatinine 2.16. Suspected KELBY on CKD - Awaiting 24 hr urine for protein and creatinine - FEUrea ordered - Patient was on vanco and zosyn which may have contributed as the combination is nephrotoxic - I also suspect patient is intravascularly dry given low albumin, hypotension, low urine output and edema. - Gentle IVF hydration ordered - Monitor closely (3) Anemia Comment: - Received 2 units PRBC 11/01 - H&H stable since transfusion - No overt bleeding noted. Stool negative. - Suspected secondary to KELBY, CKD, and Sepsis - Monitor H&H (4) Cellulitis Comment: - Cont Ceftriaxone - ID to see patient tomorrow - Patient unsure about vascular status and if shes had studies in the past - Elevate legs (5) Chronic pain Comment: - Patient on Methadone 5 mg QID at home - Dose was reduced on 11/03 due to over - Cont reduced dose of Methadone 2.5mg q6h prn. (6) Diabetes Comment: - HgbA1C 6.8 - Continue lispro sliding scale and accucheck ACHS (7) Diabetic toe ulcer Comment: - S/P Right great toe amputation due to cellulitis and osteomyelitis. POD 0. - Ortho following - Cont ceftriaxone - ID to see patient tomorrow - PT/OT consult ordered (8) Elevated troponin Comment: - No cp today - Trop peaked, likely demand in presence of sepsis, EKG no obvious ischemia and no chest pain - Hx of CABG 40 years ago, ECHO as above, EF 55-60%, EKG with no ST changes - Stable (9) HTN (hypertension) SNOMED Code(s): 12060005 Comment: - Hold Norvasc, Lisinopril, and Lasix given hypotension - Cont Metoprolol for now but consider holding if BP remains low (10) Serum albumin decreased Comment: - Repeat Albumin tomorrow - Encourage protein supplementation - Nutrition consult placed - Workup for urinary protein loss as per above (11) Streptococcal bacteremia Comment: - ID to see patient tomorrow - Blood cultures from [facility] on 10/31 grew Strep Dysgalactiae - Transthoracic echo negative for vegetation - Continue ceftriaxone - Repeat cultures with no growth to date (12) Urinary retention Comment: - Cont dorman due to previous urine retention and closer monitoring of fluid status - Possible trial void in 1-2 days if stable. (13) Low urine output Comment: - Low urine output of approx 100 mls between 0700 and 1500. - IVF ordered. (14) Hypotension Comment: - Noted to have hypotension today with systolics in the mid 80s. - Asymptomatic. - Afebrile - No tachycardia - Gentle IVF ordered - Hold home Norvasc (15) DVT prophylaxis Comment: - heparin sq (16) Full code status Comment: Status and Disposition: Inpatient, guarded/improving.
[2018-11-06] MEDS: cefTRIAXone(*) 1 GM in NS 0.9% 50 ML* 50 ML IVPB SCH (11:28)
[2018-11-06] MEDS: Gabapentin CAP(*) 100 MG PO SCH (11:31)
[2018-11-06] MEDS: Cholecalciferol TAB* 400 UNIT PO SCH (11:31)
[2018-11-06] MEDS: Atorvastatin* 80 MG TAB PO SCH (11:31)
[2018-11-06] MEDS: Metoprolol Succinate XL TAB* 25 MG PO SCH (11:32)
[2018-11-06] MEDS: Aspirin EC TAB* 81 MG TAB.EC PO SCH (11:32)
[2018-11-06] MEDS ORDERED: Metoprolol Succinate XL TAB* 25 MG PO SCH (11:56)
--- NOTE | 2018-11-06 12:07 | PN ---
Progress Note - Progress Note Date of Service: 11/06/18 SOAP: Subjective: []Pt seen at bedside. She is sedated though arousable to spoken voice. She reports pain of the entire right leg without ability to localize further. Objective: []Gen: appears uncomfortable, sedated RLE: Dressing CDI, capillary refill less than two seconds distally, no erythema proximal or distal to dressing. Does not follow commands or answer questions to assess further Assessment: [] POD 1 sp R great toe amputation Plan: []Heel WB RLE Continue abx per ID : currently on ceftriaxone Heparin sq DVT prophy Vital Signs Temp 98.0 F 11/06/18 04:09 Pulse 79 11/06/18 04:09 Resp 20 11/06/18 11:31 BP 100/38 11/06/18 09:45 Pulse Ox 97 11/06/18 04:09 Intake & Output 11/05/18 11/06/18 11/06/18 18:59 06:59 18:59 Intake Total 260 240 Output Total 200 300 Balance 60 -60 Intake: IV Fluids 250 LR 200 NS 50ML, Ceftriazone 1G 50 Oral 10 240 Output: Urine 100 [place] 200 200 Other: Estimated Stool Amount Large Laboratory Last Values WBC 20.3 10^3/uL (3.5-10.8) H 11/06/18 05:26 RBC 3.36 10^6 /uL (3.70-4.87) L 11/06/18 05:26 Hgb 10.4 g/dL (12.0-16.0) L 11/06/18 05:26 Hct 32 % (35-47) L 11/06/18 05:26 MCV 95 fL (80-97) 11/06/18 05:26 MCH 31 pg (27-31) 11/06/18 05:26 MCHC 33 g/dL (31-36) 11/06/18 05:26 RDW 18 % (10-15) H 11/06/18 05:26 Plt Count 153 10^3/uL (150-450) 11/06/18 05:26 MPV 9.4 fL (7.4-10.4) 11/06/18 05:26 Neut % (Auto) 82.3 % 11/06/18 05:26 Lymph % (Auto) 9.5 % 11/06/18 05:26 [place] % (Auto) 5.4 % 11/06/18 05:26 Eos % (Auto) 2.0 % 11/06/18 05:26 Baso % (Auto) 0.8 % 11/06/18 05:26 Absolute Neuts (auto) 16.7 10^3/ul (1.5-7.7) H 11/06/18 05:26 Absolute Lymphs (auto) 1.9 10^3/ul (1.0-4.8) 11/06/18 05:26 Absolute Monos (auto) 1.1 10^3/ul (0-0.8) H 11/06/18 05:26 Absolute Eos (auto) 0.4 10^3/ul (0-0.6) 11/06/18 05:26 Absolute Basos (auto) 0.2 10^3/ul (0-0.2) 11/06/18 05:26 Absolute Nucleated RBC 0.0 10^3/ul 11/06/18 05:26 Nucleated RBC % 0.0 11/06/18 05:26 Sodium 133 mmol/L (135-145) L 11/06/18 05:26 Potassium 5.1 mmol/L (3.5-5.0) H 11/06/18 05:26 Chloride 107 mmol/L (101-111) 11/06/18 05:26 Carbon Dioxide 21 mmol/L (22-32) L 11/06/18 05:26 Anion Gap 5 mmol/L (2-11) 11/06/18 05:26 BUN 59 mg/dL (6-24) H 11/06/18 05:26 Creatinine 2.42 mg/dL (0.51-0.95) H 11/06/18 05:26 Est GFR ( Amer) 23.7 (>60) 11/06/18 05:26 Est GFR (Non-Af Amer) 19.6 (>60) 11/06/18 05:26 BUN/Creatinine Ratio 24.4 (8-20) H 11/06/18 05:26 Glucose 118 mg/dL (70-100) H 11/06/18 05:26 POC Glucose (mg/dL) 130 mg/dL (70-100) H 11/06/18 07:23 Hemoglobin A1c 6.8 % (4.0-5.6) H 11/01/18 03:39 Lactic Acid 1.9 mmol/L (0.5-2.0) 11/01/18 00:46 Calcium 7.3 mg/dL (8.6-10.3) L 11/06/18 05:26 Iron < 17 ug/dL (50-212) L 11/01/18 00:46 TIBC 155 mcg/dL (250-450) L 11/01/18 00:46 % Saturation 11 % (15-55) L 11/01/18 00:46 Unsat Iron Binding < 140 ug/dL 11/01/18 00:46 Transferrin 111 mg/dL (203-362) L 11/01/18 00:46 Total Bilirubin 0.80 mg/dL (0.2-1.0) 11/06/18 05:26 Direct Bilirubin 0.50 mg/dL (0.03-0.18) H 11/06/18 05:26 Indirect Bilirubin 0.3 mg/dL (0.3-1.0) 11/06/18 05:26 AST 30 U/L (13-39) 11/06/18 05:26 ALT 9 U/L (7-52) 11/06/18 05:26 Alkaline Phosphatase 319 U/L (34-104) H 11/06/18 05:26 Troponin I 0.18 ng/mL (<0.04) H* 11/01/18 11:22 C-Reactive Protein 98.07 mg/L (<8.01) H 11/04/18 14:26 Total Protein 4.5 g/dL (6.4-8.9) L 11/06/18 05:26 Albumin < 1.5 g/dL (3.2-5.2) L 11/06/18 05:26 Globulin 3.0 g/dL (2-4) 11/06/18 05:26 Albumin/Globulin Ratio 0.5 (1-3) L 11/06/18 05:26 Prealbumin < 3 mg/dL (18-38) L 11/04/18 03:24 Vitamin B12 > 1450 pg/mL (180-914) H 11/01/18 00:46 Folate > 20.00 ng/mL (>3.99) 11/01/18 00:46 Urine Color [place]iny 11/03/18 17:20 Urine Appearance Turbid 11/03/18 17:20 Urine pH 5.0 (5-9) 11/03/18 17:20 Ur Specific [place] 1.017 (1.010-1.030) 11/03/18 17:20 Urine Protein 2+(100 mg/dl) (Negative) A 11/03/18 17:20 Urine Ketones Negative (Negative) 11/03/18 17:20 Urine Blood Negative (Negative) 11/03/18 17:20 Urine Nitrate Negative (Negative) 11/03/18 17:20 Urine Bilirubin Negative (Negative) 11/03/18 17:20 Urine Urobilinogen Negative (Negative) 11/03/18 17:20 Ur Leukocyte Esterase Negative (Negative) 11/03/18 17:20 Urine WBC (Auto) 1+(6-10/hpf) (Absent) A 11/03/18 17:20 Urine RBC (Auto) Trace(0-2/hpf) (Absent) 11/03/18 17:20 Ur Squamous Epith Cells Present (Absent) A 11/03/18 17:20 Urine Bacteria Absent (Absent) 11/03/18 17:20 Urine Yeast Present (Absent) A 11/01/18 02:18 Urine Collection Time 24 hr 11/05/18 18:00 Urine Total Volume 200 mL 11/05/18 18:00 Ur Creatinine 24 Hour 229.90 mg/24Hr (600-1800) L 11/05/18 18:00 Ur Creatinine Concen 114.95 mg/dL 11/05/18 18:00 Ur Total Protein Conc 84 mg/dL 11/05/18 18:00 Ur Total Protein 24 Hr 168 mg/24Hr (0-165) H 11/05/18 18:00 Urine Glucose Negative (Negative) 11/03/18 17:20 Vancomycin Trough 20.5 mcg/mL 11/04/18 03:24 Blood Type A Positive 11/01/18 03:12 Antibody Screen Negative 11/01/18 03:12 Crossmatch See Detail 11/01/18 03:12
--- NOTE | 2018-11-06 12:53 | PN ---
PROGRESS NOTE: DATE OF SERVICE: 11/06/18 SUBJECTIVE: Ms. Mendes was admitted by Dr. Calero on 11/01/18 for sepsis secondary to osteomyelitis of the foot. Since that time, she has been noted having worsening renal function. At the present time, she is barely arousable. She mumbles to stimulation, but does not answer any questions. She has blood pressure of 100/38 with a pulse of 79, she is afebrile. She has jugular venous distention to about 12 cm. She is anicteric. Her mucous membranes are moist. Her chest is clear. I did not hear any cardiac murmurs. The abdomen is obese. There was no wincing on palpation. She has 2+ edema most notable in her thighs. She has trophic changes to her feet. There is some acanthosis nigricans noted to her left foot. She has a dressing to her right foot. Of significance, she has Johan's nails. Her laboratory value is significant that her white count is 20.3 and that has been continuously going up since her admission. Hemoglobin is 10.4, hematocrit is 32, platelet count of 153. Sodium 133, potassium 5.1, total CO2 of 21, chloride 107, BUN 59, and creatinine 2.42, that was 1.4 on presentation. Calcium of 7.3 and albumin of less than 1.5. Her iron studies are quite low. She has 168 mg of protein for 24 hours. She had a vancomycin trough on the 7th of 20.5. IMPRESSION: Acute renal insufficiency which is probably multifactorial. She continues to have an elevated white count, so she probably has a significant immunostimulation going on. She probably has a prerenal state on the basis of hypoalbuminemia, which is significant. There may be a component of acute interstitial nephritis because of piperacillin/tazobactam. At the present time , I would not change her antibiotics especially as she is going to be seen by Dr. Ricci later in the day. I would change her albumin infusion to a continuous infusion after a bolus typically 100 g followed by 3 g an hour in order to maintain the gradient compensating for transcompartmental shift of albumin. I think we should try to take a look at her liver synthetic capacity, what we have is not very encouraging. We should have a protime. Her transferrin level is low at 111, her prealbumin is less than 3. I think these are ominous signs. She does not appear to be intravascularly volume overloaded at present, but she does have edema and I would continue to give her IV fluids as well as her albumin infusion. We should await urine for eosinophils before deciding on corticosteroids. [id number]/[facility] #: [id number] MTDD
--- NOTE | 2018-11-06 13:19 | CONS ---
CONSULTATION REPORT: DATE OF CONSULT: 11/06/18 PRIMARY CARE PROVIDER: Dr. Priyanka Prado. PROVIDER REQUESTING CONSULTATION: Kristin Jensen NP. CONSULTING SERVICE: Infectious Disease. PROVIDER OF CARE: Maddie Eastman NP. ATTENDING PHYSICIAN: Dr. Tomas Ricci.* (DICTATED BY MADDIE EASTMAN NP) REASON FOR CONSULT: Group C Strep bacteremia and osteomyelitis. IMPRESSION: 1. Right great toe osteomyelitis, status post right great toe amputation yesterday. She underwent an MRI on 11/02/18 showing findings most consistent with osteomyelitis involving the distal phalanx of the great toe. She has been afebrile since her arrival to [facility]. We do not have any wound cultures obtained from the wound prior to surgery. Pathology is pending at this time. She is afebrile and continues to have leukocytosis. 2. Cellulitis. 3. Sepsis, present on admission and resolving. 4. Leukocytosis. Suspect secondary to #1. Other causes of persistent leukocytosis while on IV antibiotics could be C. diff colitis. The patient was only having 1 to 2 stools daily and has a negative C. diff testing during this admission. Additionally, it could be secondary to a leukemoid reaction after surgery. Additionally, the persistent leukocytosis could be secondary to delay in improvement of the labs after treatment. 5. Group C Streptococcus bacteremia. Suspect secondary to #1. The patient denies any pacemaker or ICD placement. There are no signs of vegetation on her transthoracic echocardiogram. She does have 2 bilateral knee replacements with prosthetics, but she has no sign of infection in either knee. There is no redness or swelling or pain in her knees. Other differential could include pneumonia. Chest x-ray showed vascular congestion on admission. 6. Diabetes mellitus type 2 with peripheral neuropathy, diabetic ulcer. RECOMMENDATIONS: Recommend continuing ceftriaxone. She will likely need 6 weeks of IV antibiotics to treat her osteomyelitis. Further recommendations will be made based on her clinical course and culture results. HISTORY OF PRESENT ILLNESS: Ms. Mendes is a 73-year-old female with past medical history significant for coronary artery disease, peripheral neuropathy, TIA, anemia, chronic bilateral lower extremity lymphedema, chronic renal insufficiency, diabetes mellitus type 2, who initially presented to [facility] via ambulance after calling 911 due to generalized weakness. While in the [facility] Emergency Room, she was found to have an elevated WBC count at 11.1, hemoglobin of 7.3, creatinine of 1.8, lactic acid 2.8. Urinalysis was negative for leukocyte esterase or nitrites. She had a chest x-ray showing bilateral infrahilar patchy opacities. Additionally, she had blood cultures drawn while at [facility]. The patient is unable to provide a good history at this time due to being drowsy, but according to the H and P from [place], the patient had had fevers for 3 days and had not been out of bed. She was not eating or drinking was taking Tylenol for her fevers, at which point she reports that the highest temperature was 103. Her son had been helping to care for her at home. She follows with the wound clinic at [place] for an ulcer on her right first toe. Due to concern for sepsis and renal function and elevated troponins, she was sent from [facility] to [facility] for further treatment. While in the [facility] Emergency Room, she had repeat labs showing a WBC of 9.9. Urinalysis showing 1+ protein, 1+ rbc's and yeast present. She was initially treated with vancomycin and Zosyn for suspected pneumonia and cellulitis of her diabetic foot. She received IV hydration for her acute kidney injury. She was seen in consultation by Dr. Luis Medeiros with Orthopedic Surgery due to the right first toe infection. He recommended x-rays and an MRI to evaluate for osteomyelitis. She was referred to the hospitalist service for admission. She had an MRI of her right foot showing findings most consistent with osteomyelitis involving the distal phalanx of the great toe. During her stay, [facility] called and reported blood cultures positive with group C Strep. Blood culture from 10/31/18 with 1 out of 2 bottles positive for group C Strep. Cultures drawn on 11/01/18 with no growth to date. Urine culture with no growth. When the group C Strep results returned, the patient was switched to ceftriaxone. She has been afebrile, but has had persistent leukocytosis for the last several days. Reports fevers, chills, pain in her right leg and diarrhea. She is unable to quantify the diarrhea. She denies rash, urinary symptoms or recent travel. PAST MEDICAL HISTORY: 1. Coronary artery disease. 2. Diabetic peripheral neuropathy. 3. TIA. 4. Anemia. 5. Chronic bilateral lower extremities lymphedema with chronic wounds. 6. Chronic renal insufficiency. 7. Diabetes mellitus type 2. PAST SURGICAL HISTORY: 1. Status post coronary artery bypass graft. 2. Status post hysterectomy. 3. Status post bilateral total knee replacements. MEDICATIONS: Home medications include: 1. Gabapentin 100 mg by mouth daily. 2. NPH insulin 70/30, 40 units subcutaneous every evening and 50 units subcutaneous every morning. 3. Vitamin B12, 2500 mcg by mouth daily. 4. Vitamin D 400 units by mouth daily. 5. Amlodipine 5 mg by mouth daily. 6. Methadone 5 mg by mouth daily. 7. Atorvastatin 80 mg by mouth daily. 8. Aspirin 81 mg by mouth daily. 9. Metolazone 2.5 mg by mouth daily. 10. Metoprolol succinate 12.5 mg by mouth daily. 11. Furosemide 40 mg by mouth twice daily. 12. Lisinopril 10 mg by mouth daily. Hospital medications: 1. Acetaminophen 650 mg by mouth every 4 hours as needed for fever or pain. 2. Aspirin 81 mg by mouth daily. 3. Atorvastatin 80 mg by mouth daily. 4. Ceftriaxone 1 g IV daily. 5. Vitamin D 400 units by mouth daily. 6. Dextrose 2.5 g IV push for glucose less than 60. 7. Gabapentin 100 mg by mouth daily. 8. Heparin sodium 5000 units subcutaneous every 8 hours. 9. Lispro insulin sliding scale subcutaneous with meals and at bedtime. 10. Methadone 2.5 mg by mouth every 6 hours as needed for pain. 11. Metoprolol succinate 12.5 mg by mouth daily. 12. Sodium chloride 25 mL an hour. ALLERGIES: DEMEROL and COMPAZINE. FAMILY HISTORY: Denies family history of recurrent or resistant infections or tuberculosis. Denies family history of coronary artery disease. Mother with a history of diabetes mellitus. Sister passed at age 58 from liver cancer and brother with a history of lymphoma. Son passed at age 48 from lung cancer. SOCIAL HISTORY: Denies alcohol, tobacco or recreational drug use. REVIEW OF SYSTEMS: I performed a 10-point review of systems. All the pertinent positives and negatives are mentioned in the history of present illness. The remaining review of systems are negative. PHYSICAL EXAM: Vital Signs: Temperature 98.0, heart rate 79, respiratory rate 18, O2 sat 97% on 2 liters via nasal cannula, blood pressure 110/33. General: The patient is alert, appears to be in no acute distress, but is drowsy. Head: Normocephalic, atraumatic. EENT: Pupils are equal and reactive to light. Extraocular movements are intact. No subconjunctival hemorrhage. Dry mucous membranes. Neck: Supple. No lymphadenopathy. Neurological: Cranial nerves II through XII are grossly intact. The patient is drowsy. Oriented to person and place. Cardiovascular: Regular rate and rhythm. There is a grade 2/6 systolic murmur heard best at the left upper sternal border. Respiratory: The lungs are clear to auscultation bilaterally. No accessory muscle use. Abdomen : Bowel sounds present. Abdomen is large, soft, nontender. Extremities: There is 1-2+ bilateral lower extremity edema. Musculoskeletal: No clubbing or cyanosis noted. Psychological: Calm and cooperative. Skin: She has chronic lymphedema changes to the bilateral lower extremities. Surgical dressing in place to the right foot. No splinter hemorrhages. DIAGNOSTIC STUDIES/LAB DATA: Sodium 133, potassium 4.4, chloride 108, CO2 of 19 , BUN 54, creatinine 2.16, glucose 98. White blood cell count 20.1, hemoglobin 9.9, hematocrit 30, platelet count 143. Please see impression and recommendations outlined above. Thank you for asking us to see Ms. Mendes in consultation. Recommendations have been discussed with Priyanka Starks NP and Ligia Watts NP. The case has been discussed my attending Dr. Tomas Ricci, who agrees with the plan of care. Reviewed by TREVOR VELASCO 11/08/18 1821 [id number]/[facility] #: [id number] USHA
[2018-11-06 14:28] LABS: Lambda Free Light Chain 18.6 mg/dL
--- NOTE | 2018-11-06 15:30 | PN ---
Date of Service: 11/06/18 - HD 6 Critical Care Services: 73 yo F with PMH which includes DM, HTN, CAD with previous CABG, CVA, lymphedema and chronic pain. She presented to the ED on 11/01 from [place] with complaints of right leg wounds, pain and redness. She was seen 2 days prior at wound clinic in [place]. Also reports, fever, chills, fatigue and diarrhea. Per patient she has been on outpatient antibiotics. On evaluation she was noted to be tachycardic to 102. Otherwise afebrile with stable vital signs. Physical exam notable for bilateral lower extremity edema , deep ulcer on plantar aspect of right great toe with some granulation tissue and is not malodorous, a little bit of bleeding of edges of the ulcer. Exam otherwise benign. WBC 9.9. Creatinine elevated at 1.40. Admitted to the hospitalist service for cellulitis and sepsis. Orthopedics consulted. Started on Vancomycin and Zosyn for broad spectrum coverage. IVF hydration for sepsis and KELBY. H&H dropped over the course of the day and transfused 2U PRBC. Lactic acid only 1.9. Notified by [facility] that their blood cultures are growing gram positive cocci in chains in 2 bottles. 11/02: TTE report with LVEF 55-60%, normal wall motion, no vegitation. 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 11/04: Blood cultures from [place] with Strep, sensitive to ceftriaxone (report on chart). ABx narrowed to Ceftriaxone. 11/05: Went to OR with Orthopedics for right great toe amputation. Poor urine output. Hypotensive to 80s but asymptomatic. Repeat blood cultures NGTD. ID consulted. Creatinine bumped to 2.16, IVF hydration restarted. 11/06: Increased lethargy, reporting pain of right leg. BPs remain soft with systolics mid 90s. Nephrology consulted for acute kidney injury. Transferred to ICU for further resuscitation and support Vital Signs: Temp Pulse Resp BP SpO2 FiO2 98.0 F 84 20 96/42 99 11/06/18 11:29 11/06/18 11:29 11/06/18 11:31 11/06/18 11:29 11/06/18 11:29 Physical Exam: Gen: Lethargic but responsive. following commands and answering questions appropriately HEENT: dry mucus membranes Lungs: CTAB Cardiac: RRR Abdomen: soft, NTND Extremities: extensive chronic skin changes. Lymphedema of both extremities to the knees. Cellulitis bilaterally from ankles to knees. Right leg cellulitis with maceration and skin splitting with punctate bleeding. Right great toe amputation site clean and dry. Surrounding tissue no more edematous than the rest of the extremity. No purulence. No crepitus. Neuro: Lethargic. Oriented x 3. Follows commands. Fluid Balance (Past 24 Hours): I= O= Net Intake & Output 11/04/18 11/05/18 11/06/18 11/07/18 06:59 06:59 06:59 06:59 Intake Total 1353 1275 500 240 Output Total 550 575 500 100 Balance 803 700 0 140 Intake: IV Fluids 113 10 250 LR 200 NS (0.9%) 5 NS 50ML, Ceftriazone 1G 50 Zosyn 108 ceftrixone 10 IVPB 425 ABX - VANCOMYCIN 260 Zosyn 110 ceftrixone 55 Oral 1240 840 250 240 Output: Urine 100 0 Barber 550 575 400 100 Other: Estimated Void Small # Bowel Movements 1 1 Estimated Stool Amount Small Medium Large Labs: Laboratory Results - last 24 hr 11/05/18 11/05/18 11/05/18 06:47 12:03 17:03 WBC RBC Hgb Hct MCV MCH MCHC RDW Plt Count MPV Neut % (Auto) Lymph % (Auto) Scott % (Auto) Eos % (Auto) Baso % (Auto) Absolute Neuts (auto) Absolute Lymphs (auto) Absolute Monos (auto) Absolute Eos (auto) Absolute Basos (auto) Absolute Nucleated RBC Nucleated RBC % Sodium Potassium Chloride Carbon Dioxide Anion Gap BUN Creatinine Est GFR ( Amer) Est GFR (Non-Af Amer) BUN/Creatinine Ratio Glucose POC Glucose (mg/dL) 109 H 91 Calcium Total Bilirubin Direct Bilirubin Indirect Bilirubin AST ALT Alkaline Phosphatase Total Protein Albumin Globulin Albumin/Globulin Ratio Urine Collection Time Urine Total Volume Ur Creatinine 24 Hour Ur Creatinine Concen Ur Total Protein Conc Ur Total Protein 24 Hr [place] Light Chain 32.0 H Lambda Light Chain 18.6 H [place]/Lambda Ratio 1.72 H 07/08/19 07/08/19 07/08/19 18:00 21:03 22:58 WBC RBC Hgb Hct MCV MCH MCHC RDW Plt Count MPV Neut % (Auto) Lymph % (Auto) Scott % (Auto) Eos % (Auto) Baso % (Auto) Absolute Neuts (auto) Absolute Lymphs (auto) Absolute Monos (auto) Absolute Eos (auto) Absolute Basos (auto) Absolute Nucleated RBC Nucleated RBC % Sodium Potassium Chloride Carbon Dioxide Anion Gap BUN Creatinine Est GFR ( Amer) Est GFR (Non-Af Amer) BUN/Creatinine Ratio Glucose POC Glucose (mg/dL) 61 L 133 H Calcium Total Bilirubin Direct Bilirubin Indirect Bilirubin AST ALT Alkaline Phosphatase Total Protein Albumin Globulin Albumin/Globulin Ratio Urine Collection Time 24 Urine Total Volume 200 Ur Creatinine 24 Hour 229.90 L Ur Creatinine Concen 114.95 Ur Total Protein Conc 84 Ur Total Protein 24 Hr 168 H [place] Light Chain Lambda Light Chain [place]/Lambda Ratio 11/06/18 11/06/18 11/06/18 05:26 05:26 07:23 WBC 20.3 H RBC 3.36 L Hgb 10.4 L Hct 32 L MCV 95 MCH 31 MCHC 33 RDW 18 H Plt Count 153 MPV 9.4 Neut % (Auto) 82.3 Lymph % (Auto) 9.5 Scott % (Auto) 5.4 Eos % (Auto) 2.0 Baso % (Auto) 0.8 Absolute Neuts (auto) 16.7 H Absolute Lymphs (auto) 1.9 Absolute Monos (auto) 1.1 H Absolute Eos (auto) 0.4 Absolute Basos (auto) 0.2 Absolute Nucleated RBC 0.0 Nucleated RBC % 0.0 Sodium 133 L Potassium 5.1 H Chloride 107 Carbon Dioxide 21 L Anion Gap 5 BUN 59 H Creatinine 2.42 H Est GFR ( Amer) 23.7 Est GFR (Non-Af Amer) 19.6 BUN/Creatinine Ratio 24.4 H Glucose 118 H POC Glucose (mg/dL) 130 H Calcium 7.3 L Total Bilirubin 0.80 Direct Bilirubin 0.50 H Indirect Bilirubin 0.3 AST 30 ALT 9 Alkaline Phosphatase 319 H Total Protein 4.5 L Albumin < 1.5 L Globulin 3.0 Albumin/Globulin Ratio 0.5 L Urine Collection Time Urine Total Volume Ur Creatinine 24 Hour Ur Creatinine Concen Ur Total Protein Conc Ur Total Protein 24 Hr [place] Light Chain Lambda Light Chain [place]/Lambda Ratio 11/06/18 12:17 WBC RBC Hgb Hct MCV MCH MCHC RDW Plt Count MPV Neut % (Auto) Lymph % (Auto) Scott % (Auto) Eos % (Auto) Baso % (Auto) Absolute Neuts (auto) Absolute Lymphs (auto) Absolute Monos (auto) Absolute Eos (auto) Absolute Basos (auto) Absolute Nucleated RBC Nucleated RBC % Sodium Potassium Chloride Carbon Dioxide Anion Gap BUN Creatinine Est GFR ( Amer) Est GFR (Non-Af Amer) BUN/Creatinine Ratio Glucose POC Glucose (mg/dL) 135 H Calcium Total Bilirubin Direct Bilirubin Indirect Bilirubin AST ALT Alkaline Phosphatase Total Protein Albumin Globulin Albumin/Globulin Ratio Urine Collection Time Urine Total Volume Ur Creatinine 24 Hour Ur Creatinine Concen Ur Total Protein Conc Ur Total Protein 24 Hr [place] Light Chain Lambda Light Chain [place]/Lambda Ratio Studies: 11/06 US renal - Retroperitoneal structure noted. CT recommended. Unremarkable exam of kidneys. 11/02 MR right leg - osteomyelitis of distal phalynx of great toe 11/01 XR right foot - no definite osteopenia. Multiple areas of degenerative joint disease noted. 11/01 CXR - pulmonary vascular congestion Nutrition: diabetic diet Impression: 73 yo F with PMH including CAD, CVA, DM presented with bilateral lower extremity cellulitis, right great toe osteomyelitis and sepsis on 11/01/2018. She was treated with broad spectrum antibiotics and underwent right great toe amputation on 11/05/2018. Transferred to ICU on 11/06/2018 for SIRS response, hypotension and oliguria. Plan: Cardiovascular: (1) Hypotension secondary to sepsis; (2) Chronic hypertension; (3) elevated troponin on admission; (4) CAD with history of CABG; (5) Bilateral lower extremity lymphedema -- HR 79-84 -- SBP 86-118 -- Telemetry -- TTE, 11/02: LVEF 55-60%, normal wall motion. -- ASA -- Atorvastatin -- Metoprolol -- on albumin gtt Home meds: Amlodipine, ASA, Atorvastatin, Lasix, Lisinopril, Metolazone, Metoprolol Pulmonary: No acute issues -- RR 16-22 -- sats 97-100 on RA -- ABG: pH 7.36; pCO2 31; pO2 121; HCO3 19.6; BE -6.8; %O2 Sat 99.9. Home meds: None Gastrointestinal: (1) Diarrhea, possibly secondary to antibiotics; (2) Hypoalbuminemia; (3) Elevated ALK -- LFTs Tbili 0.8 ALK 319 from 153, follow trend AST 30 ALT 9 -- Total protein 4.5, low -- Albumin <1.5, low -- diet: heart healthy -- bowel regimen: None -- ulcer prophylaxis: Not indicated at this time -- Nutrition consulted for recs given hypoalbuminemia and concern for malnutrition Home meds: None Endocrine: (1) Diabetes mellitus type 2 -- monitor BGs -- Sliding scale insulin Home meds: Insulin NPH Renal: (1) Acute kidney failure on chronic renal insuffiency; (2) Hyponatremia ; (3) Hypocalcemia; (4) Hyperkalemia; (5) Intravascular hypovolemia -- UOP: 21 ml/hr -- Cr 2.42 from 2.16 -- Lytes Na 133 from 133, follow trend, on NS K 5.1, continue hydration Ca 7.3, on replacement Mag ordered with AM labs Phos ordered with AM labs -- IVF: NS @ 75 ml/hr -- Albumin gtt per Nephrology -- Calcium carbonate -- Nephrology consulted Home meds: Lasix, Metolazone Infectious disease: (1) Sepsis; (2) Diabetic foot ulcer with osteomyelitis s/p right great toe amputation; (3) Bilateral lower extremity cellulitis; (4) Community acquired pneumonia; (5) Hx of pseudomonal bacteremia -- Tmax 98.0 -- WBC 20.3 from 20.1 -- Micro / Stool negative for Shiga 11/03 urine negative 11/01 MRSA screen Positive blood NGTD urine negative 10/31 Blood-fatuma Strep Dysgalactiae (grp C) -- ABX Rocephin Flagyl Home meds: None Neurologic: (1) Diabetic neuropathy; (2) Chronic pain; (3) hx of stroke -- PRN Tylenol -- Gabapentin -- Methadone Home meds: Gabapentin, Methadone Hematological: (1) Chronic anemia -- Hgb 10.4 from 9.9, follow trend -- Plt 153 from 143 -- DVT prophylaxis: SQ Heparin -- ASA Home meds: ASA Metabolic: No acute issues Home meds: None Other: No acute issues -- Cholecalciferol, Home meds: Cholecalciferol, Vitamin B12 Deep vein thrombosis prophylaxis: SQ Heparin Dietary: Not indicated at this time Condition: Serious Prognosis: guarded Code status: full Disposition: transferred to ICU Cumulative time spent in the care of this patient (excluding any procedure time) : at least 65 minutes. Patient care included clinical interview (with patient and/or family), bedside exam of the patient, review of labs, x-rays, and other ancillary data, coordination of (respiratory, nursing care, review of patient's records, discussion regarding patients management with involved consultants, primary physician, pharmacists, and other healthcare personnel (dietary, case management , physical/occupational therapy etc.) Critical care time: 65 min
[2018-11-06] MEDS ORDERED: Acetaminophen TAB* 325 MG PO PRN (16:50)
--- NOTE | 2018-11-06 17:26 | PN ---
Subjective Date of Service: 11/06/18 Interval History: Patient evaluated this morning at bedside. Patient engaged well in ROS and reported "pain all over". She denies sob, cp, nausea, vomiting, chills, fever. Given patient's rising creatinine Dr Reid consulted. Received call from nurse this afternoon that patient was more lethargic and nurse was concerned about her status. Patient reassessed and appears mildly lethargic, but continues to answer questions appropriate and arouses to voice. Given nursing concerns, patient increasing creatinine, infection, and need to albumin drip patient was transferred to ICU. Family at bedside and agreed with plan Objective Active Medications: Acetaminophen (Tylenol Tab*) 650 mg PO Q4H PRN PRN Reason: FEVER Aspirin (Aspirin Ec Tab*) 81 mg PO DAILY [facility] Last Admin: 11/06/18 11:32 Dose: 81 mg Atorvastatin Calcium (Lipitor*) 80 mg PO DAILY [facility] Last Admin: 11/06/18 11:31 Dose: 80 mg Calcium Carbonate (Tums*) 500 mg PO BID [facility] Cholecalciferol (Vitamin D Tab*) 400 unit PO DAILY [facility] Last Admin: 11/06/18 11:31 Dose: 400 unit Dextrose (D50w Syringe 50 Ml*) 12.5 gm IV PUSH .FOR FS < 60 - SS PRN PRN Reason: FS < 60 Gabapentin (Neurontin Cap(*)) 100 mg PO DAILY [facility] Last Admin: 11/06/18 11:31 Dose: 100 mg Heparin Sodium (Porcine) (Heparin Vial(*)) 5,000 units SUBCUT Q8HR [facility] Last Admin: 11/06/18 05:15 Dose: 5,000 units Ceftriaxone Sodium 1 gm/ (Sodium Chloride) 50 mls @ 200 mls/hr IVPB 0900 [facility] Last Admin: 11/06/18 11:28 Dose: 200 mls/hr Sodium Chloride (Ns 0.9% 1000 Ml) 1,000 mls @ 75 mls/hr IV PER RATE [facility] Last Admin: 11/06/18 04:00 Dose: 75 mls/hr Albumin Human (Albumin Human 25%*) 25 gm in 100 mls @ 100 mls/hr IV Q1H [facility] Stop: 11/06/18 20:59 Albumin Human (Albumin Human 5%*) 12.5 gm in 250 mls @ 60 mls/hr IV PER RATE ONE Stop: 11/07/18 01:09 Insulin Human Lispro (Humalog*) 0 units SUBCUT ACHS [facility]; Protocol Last Admin: 11/06/18 12:52 Dose: Not Given Methadone HCl (Dolophine Tab*) 2.5 mg PO Q6H PRN PRN Reason: PAIN Last Admin: 11/05/18 20:52 Dose: 2.5 mg Metoprolol Succinate (Toprol Xl Tab*) 12.5 mg PO DAILY [facility] Metronidazole (Flagyl Tab*) 500 mg PO TID [facility] Vital Signs - 8 hr 11/06/18 11/06/18 11/06/18 09:45 11:29 11:31 Temperature 98.0 F Pulse Rate 84 Respiratory 20 20 Rate Blood Pressure 100/38 96/42 (mmHg) O2 Sat by Pulse 99 Oximetry Oxygen Devices in Use Now: Nasal Cannula Appearance: NAD Eyes: No Scleral Icterus, PERRLA Ears/Nose/Mouth/Throat: Clear Oropharnyx, Mucous Membranes Moist Neck: NL Appearance and Movements; NL JVP Respiratory: Symmetrical Chest Expansion and Respiratory Effort, Clear to Auscultation Cardiovascular: NL Sounds; No Murmurs; No JVD, RRR, - - Bilateral LE edema Abdominal: NL Sounds; No Tenderness; No Distention Lymphatic: No Cervical Adenopathy Extremities: - - Bilateral LE redeness. Open areas to left LE Neurological: Alert and Oriented x 3, NL Muscle Strength and Tone Nutrition: Taking PO's Result Diagrams: 11/06/18 05:26 11/06/18 05:26 Additional Lab and Data: Laboratory Results - last 24 hr 11/05/18 11/05/18 11/05/18 06:47 18:00 21:03 WBC RBC Hgb Hct MCV MCH MCHC RDW Plt Count MPV Neut % (Auto) Lymph % (Auto) [place] % (Auto) Eos % (Auto) Baso % (Auto) Absolute Neuts (auto) Absolute Lymphs (auto) Absolute Monos (auto) Absolute Eos (auto) Absolute Basos (auto) Absolute Nucleated RBC Nucleated RBC % Patient Temperature ABG pH ABG pH (Temp Correct) ABG pCO2 ABG pCO2 (Temp Corrct ABG pO2 ABG pO2 (Temp Correct ABG HCO3 ABG O2 Saturation ABG Base Excess Respiration Rate O2 Delivery Device Ventilator Type Vent Mode FiO2 Inspiratory Time PEEP Pressure Support Pressure Control EPAP IPAP BiPAP Sodium Potassium Chloride Carbon Dioxide Anion Gap BUN Creatinine Est GFR ( Amer) Est GFR (Non-Af Amer) BUN/Creatinine Ratio Glucose POC Glucose (mg/dL) 61 L Calcium Total Bilirubin Direct Bilirubin Indirect Bilirubin AST ALT Alkaline Phosphatase Total Protein Albumin Globulin Albumin/Globulin Ratio Urine Collection Time 24 Urine Total Volume 200 Ur Creatinine 24 Hour 229.90 L Ur Creatinine Concen 114.95 Ur Total Protein Conc 84 Ur Total Protein 24 Hr 168 H [place] Light Chain 32.0 H Lambda Light Chain 18.6 H [place]/Lambda Ratio 1.72 H 11/05/18 11/06/18 11/06/18 22:58 05:26 05:26 WBC 20.3 H RBC 3.36 L Hgb 10.4 L Hct 32 L MCV 95 MCH 31 MCHC 33 RDW 18 H Plt Count 153 MPV 9.4 Neut % (Auto) 82.3 Lymph % (Auto) 9.5 [place] % (Auto) 5.4 Eos % (Auto) 2.0 Baso % (Auto) 0.8 Absolute Neuts (auto) 16.7 H Absolute Lymphs (auto) 1.9 Absolute Monos (auto) 1.1 H Absolute Eos (auto) 0.4 Absolute Basos (auto) 0.2 Absolute Nucleated RBC 0.0 Nucleated RBC % 0.0 Patient Temperature ABG pH ABG pH (Temp Correct) ABG pCO2 ABG pCO2 (Temp Corrct ABG pO2 ABG pO2 (Temp Correct ABG HCO3 ABG O2 Saturation ABG Base Excess Respiration Rate O2 Delivery Device Ventilator Type Vent Mode FiO2 Inspiratory Time PEEP Pressure Support Pressure Control EPAP IPAP BiPAP Sodium 133 L Potassium 5.1 H Chloride 107 Carbon Dioxide 21 L Anion Gap 5 BUN 59 H Creatinine 2.42 H Est GFR ( Amer) 23.7 Est GFR (Non-Af Amer) 19.6 BUN/Creatinine Ratio 24.4 H Glucose 118 H POC Glucose (mg/dL) 133 H Calcium 7.3 L Total Bilirubin 0.80 Direct Bilirubin 0.50 H Indirect Bilirubin 0.3 AST 30 ALT 9 Alkaline Phosphatase 319 H Total Protein 4.5 L Albumin < 1.5 L Globulin 3.0 Albumin/Globulin Ratio 0.5 L Urine Collection Time Urine Total Volume Ur Creatinine 24 Hour Ur Creatinine Concen Ur Total Protein Conc Ur Total Protein 24 Hr [place] Light Chain Lambda Light Chain [place]/Lambda Ratio 11/06/18 11/06/18 11/06/18 07:23 12:17 15:40 WBC RBC Hgb Hct MCV MCH MCHC RDW Plt Count MPV Neut % (Auto) Lymph % (Auto) [place] % (Auto) Eos % (Auto) Baso % (Auto) Absolute Neuts (auto) Absolute Lymphs (auto) Absolute Monos (auto) Absolute Eos (auto) Absolute Basos (auto) Absolute Nucleated RBC Nucleated RBC % Patient Temperature Not Reportable ABG pH 7.36 ABG pH (Temp Correct) Not Reportable ABG pCO2 31 L ABG pCO2 (Temp Corrct Not Reportable ABG pO2 121 H ABG pO2 (Temp Correct Not Reportable ABG HCO3 19.6 ABG O2 Saturation 99.9 H ABG Base Excess -6.8 L Respiration Rate Not Reportable O2 Delivery Device nasal cannula 2lpm Ventilator Type Not Reportable Vent Mode Not Reportable FiO2 Not Reportable Inspiratory Time Not Reportable PEEP Not Reportable Pressure Support Not Reportable Pressure Control Not Reportable EPAP Not Reportable IPAP Not Reportable BiPAP Not Reportable Sodium Potassium Chloride Carbon Dioxide Anion Gap BUN Creatinine Est GFR ( Amer) Est GFR (Non-Af Amer) BUN/Creatinine Ratio Glucose POC Glucose (mg/dL) 130 H 135 H Calcium Total Bilirubin Direct Bilirubin Indirect Bilirubin AST ALT Alkaline Phosphatase Total Protein Albumin Globulin Albumin/Globulin Ratio Urine Collection Time Urine Total Volume Ur Creatinine 24 Hour Ur Creatinine Concen Ur Total Protein Conc Ur Total Protein 24 Hr [place] Light Chain Lambda Light Chain [place]/Lambda Ratio Microbiology and Other Data: Microbiology 11/04/18 15:30 Stool Culture - Final Stool Stool Gross Appearance - Final Shiga Toxin I & II - Final Negative Shiga Toxin 1 & 2 Stool Occult Blood (IKE) - Final 11/01/18 03:12 Aerobic Blood Culture - Final Blood Venous Not Reportable Anaerobic Blood Culture - Final Not Reportable Blood Culture - Final No Growth Day 5 11/01/18 00:46 Aerobic Blood Culture - Final Blood Venous Not Reportable Anaerobic Blood Culture - Final Not Reportable Blood Culture - Final No Growth Day 5 10/31/18 19:45 Aerobic Blood Culture - Final Blood Venous Strep Dysgalactiae (Grp C) Anaerobic Blood Culture - Preliminary No Growth Day 3 11/03/18 17:20 Urine Culture - Final Urine No Growth (<1,000 CFU/mL) 11/01/18 02:18 Urine Culture - Final Urine No Growth (<1,000 CFU/mL) 11/01/18 04:05 Nasal Screen MRSA (PCR) - Final Nasal Mrsa Detected Diagnostic Imaging: US RENAL COMPLETE Accession Number: [id number] CPT: 40545 INDICATION: Acute kidney injury COMPARISON: There are no relevant prior studies available for comparison. TECHNIQUE: Multiple real-time images of the kidneys were obtained. FINDINGS: The right kidney measures 9.3 cm. The left kidney measures 9.7 cm. Normal corticomedullary differentiation is maintained with no contour deforming lesion. No nephrolithiasis or hydronephrosis is identified. Anterior to the right kidney, in the retroperitoneum, and annotated structure appears to have a bowel signature; however, no dirty shadowing is observed. IMPRESSION: 1. A retroperitoneal structure may be aircraft sales representative of the pylorus/duodenum; however, an abdominal CT is recommended to rule out a more sinister lesion. 2. Unremarkable sonographic appearance of the kidneys. US LIVER Accession Number: [id number] CPT: 81647 Indication: Biliary sludge. Real-time sonography of the right upper quadrant was performed. The liver measures 13.7 cm in length. No focal lesions or intrahepatic duct dilatation is noted. Heterogeneous echotexture is noted. Portal vein is difficult to visualize. The common hepatic duct measures 0.4 cm. The gallbladder demonstrates sludge in gallbladder. No pericholecystic fluid is identified. The right kidney is unremarkable. Aorta and inferior vena cava are unremarkable. Small amount of ascites is noted. IMPRESSION: Sludge is noted in the gallbladder. No biliary duct dilatation is noted. EKG Data: . Assess/Plan/Problems-Billing Assessment: Ms. Mendes is a 73 year old female with hx of CAD/CABG, DM, HTN transferred from [facility] on 11/01/18 for sepsis, anemia and elevated troponin. - Patient Problems (1) Sepsis Comment: - Transferred to ICU - S/P Right great toe amputation due to cellulitis and osteomyelitis. POD 1. - Afebrile - Blood cultures from [place] with Strep - Repeat blood cultures no growth so far - WBC increasing - ID recommends continuing Rocephin and adding Flagyl. (2) KELBY (acute kidney injury) Comment: - Creatinine 2.42 today - Dr Rubi consulting and we appreciate his assistance. He suspected increase in creatinine is multifactorial. - Awaiting 24 hr urine for protein and creatinine - FEUrea ordered (3) Anemia Comment: - Received 2 units PRBC 11/01 - H&H stable since transfusion - No overt bleeding noted. Stool negative. - Suspected secondary to KELBY, CKD, and Sepsis - Monitor H&H (4) Cellulitis Comment: - Cont Ceftriaxone with addition of Flagyl per ID - Patient unsure about vascular status and if shes had studies in the past - Elevate legs (5) Chronic pain Comment: - Patient on Methadone 5 mg QID at home - Dose was reduced on 11/03 due to over - Cont reduced dose of Methadone 2.5mg q6h prn. (6) Diabetes Comment: - HgbA1C 6.8 - Continue lispro sliding scale and accucheck ACHS (7) Diabetic toe ulcer Comment: - S/P Right great toe amputation due to cellulitis and osteomyelitis. POD 1. - Ortho following - Cont abx - PT/OT consult ordered (8) Elevated troponin Comment: - No cp today - Trop peaked, likely demand in presence of sepsis, EKG no obvious ischemia and no chest pain - Hx of CABG 40 years ago, ECHO as above, EF 55-60%, EKG with no ST changes - Stable (9) HTN (hypertension) SNOMED Code(s): 42084195 Comment: - Hold Norvasc, Lisinopril, and Lasix given hypotension - Cont Metoprolol for now but consider holding if BP remains low (10) Serum albumin decreased Comment: - Dr Rubi recommends albumin bolus of 100 grams than drip of 3 grams/hr - Monitor pulmonary status closely - Liver US as above - Monitor Albumin (11) Streptococcal bacteremia Comment: - ID consulting - Blood cultures from [facility] on 10/31 grew Strep Dysgalactiae - Transthoracic echo negative for vegetation - Ceftriaxone and Flagyl - Repeat cultures with no growth to date (12) Urinary retention Comment: - Cont dorman due to previous urine retention and closer monitoring of fluid status - Possible trial void in 1-2 days if stable. (13) Low urine output Comment: - Low urine output - Intravascularly dry - Cont dorman and strict I&Os (14) Hypotension Comment: - Noted to have hypotension occasionally - Asymptomatic. - Afebrile - No tachycardia - Continue to hold home BP medications (15) DVT prophylaxis Comment: - heparin sq (16) Full code status Comment: Status and Disposition: Inpatient, guarded Attending: Zonia Calero
[2018-11-06] MEDS: metroNIDAZOLE TAB* 250 MG PO SCH ×2 (17:45→21:49)
[2018-11-06] MEDS: Albumin Human 25%* 25 GM/100 ML BTL IV SCH ×4 (18:04→23:05)
--- NOTE | 2018-11-06 18:06 | CONSULT ---
Subjective Date of Service: 11/06/18 Interval History: Ms. Mendes is a 73-year-old female with past medical history significant for CAD, peripheral neuropathy, TIA, anemia, chronic bilateral lower extremity lymphedema , chronic renal insufficiency, and DM 2, who initially presented to [facility] Emergency Room via ambulance after calling 911 due to generalized weakness. While in the [facility] Emergency Room, she was found to have signs of sepsis and was transferred to [facility]. She was admitted to the hospital for Sepsis, right 1st toe infection and cellulitis. While in the hospital she underwent a right 1st toe amputation with orthopedics on due to osteomyelitis. She was seen by Dr. Hayden in July 2017 at the [facility] for Wound healing. She has recently been followup with the wound clinic at [place], she states that they are using calcium alginate and changing the dressing once weekly. Patient seen and examined at bedside. Family History: Unchanged from Admission Social History: Unchanged from Admission Past Medical History: Unchanged from Admission Review of Systems - Measurements Intake and Output: Intake and Output Last 24 Hours 11/04/18 11/05/18 11/06/18 11/07/18 06:59 06:59 06:59 06:59 Intake Total 1353 1275 500 240 Output Total 550 575 500 100 Balance 803 700 0 140 Intake: IV Fluids 113 10 250 LR 200 NS (0.9%) 5 NS 50ML, Ceftriazone 1G 50 Zosyn 108 ceftrixone 10 IVPB 425 ABX - VANCOMYCIN 260 Zosyn 110 ceftrixone 55 Oral 1240 840 250 240 Output: Urine 100 0 Barber 550 575 400 100 Other: Estimated Void Small # Bowel Movements 1 1 Estimated Stool Amount Small Medium Large - Review of Systems Constitutional Symptoms: Negative: Fever, Other - Chills Dermatology: Positive: Other - Chronic wounds to bilateral LEs Endocrinology: Positive: Obesity, Diabetes Mellitus Objective Active Medications: Acetaminophen (Tylenol Tab*) 650 mg PO Q4H PRN Reason: FEVER Aspirin (Aspirin Ec Tab*) 81 mg PO DAILY [facility] Atorvastatin Calcium (Lipitor*) 80 mg PO DAILY [facility] Calcium Carbonate (Tums*) 500 mg PO BID [facility] Cholecalciferol (Vitamin D Tab*) 400 unit PO DAILY [facility] Dextrose (D50w Syringe 50 Ml*) 12.5 gm IV PUSH .FOR FS < 60 - SS PRN Reason: FS < 60 Gabapentin (Neurontin Cap(*)) 100 mg PO DAILY [facility] Heparin Sodium (Porcine) (Heparin Vial(*)) 5,000 units SUBCUT Q8HR [facility] Ceftriaxone Sodium 1 gm/ (Sodium Chloride) 50 mls @ 200 mls/hr IVPB 0900 [facility] Sodium Chloride (Ns 0.9% 1000 Ml) 1,000 mls @ 75 mls/hr IV PER RATE [facility] Albumin Human (Albumin Human 25%*) 25 gm in 100 mls @ 100 mls/hr IV Q1H [facility] Stop: 11/06/18 20:59 Albumin Human (Albumin Human 5%*) 12.5 gm in 250 mls @ 60 mls/hr IV PER RATE ONE Stop: 11/07/18 01:09 Insulin Human Lispro (Humalog*) 0 units SUBCUT ACHS [facility]; Protocol Methadone HCl (Dolophine Tab*) 2.5 mg PO Q6H PRN Reason: PAIN Metoprolol Succinate (Toprol Xl Tab*) 12.5 mg PO DAILY [facility] Metronidazole (Flagyl Tab*) 500 mg PO TID [facility] Vital Signs 11/06/18 11/06/18 11/06/18 16:30 16:36 16:46 Temperature 99.2 F Pulse Rate 65 68 75 Respiratory 15 15 18 Rate Blood Pressure 103/57 98/56 98/56 (mmHg) O2 Sat by Pulse 98 98 99 Oximetry Oxygen Devices in Use Now: Nasal Cannula Appearance: NAD, sitting up in bed Ears/Nose/Mouth/Throat: Mucous Membranes Moist Respiratory: Symmetrical Chest Expansion and Respiratory Effort Extremities: - - Bilateral LE lymphedema, 1+ DP pulse bilateral Skin: - - Seee skin note below Neurological: - - Drowsy, oriented to person and place Nutrition: Taking PO's Result Diagrams: 11/11/18 05:32 11/11/18 14:47 Additional Lab and Data: Above labs were pulled into the note when the note was edited prior to signing , see labs from day of consult below Laboratory Tests 11/04/18 11/04/18 11/06/18 03:24 14:26 05:26 WBC 20.3 H Hgb 10.4 L Hct 32 L Plt Count 153 Sodium Potassium Chloride Carbon Dioxide BUN Creatinine Glucose C-Reactive Protein 98.07 H Total Protein Albumin Prealbumin < 3 L 11/06/18 05:26 WBC Hgb Hct Plt Count Sodium 133 L Potassium 5.1 H Chloride 107 Carbon Dioxide 21 L BUN 59 H Creatinine 2.42 H Glucose 118 H C-Reactive Protein Total Protein 4.5 L Albumin < 1.5 L Prealbumin Microbiology and Other Data: Microbiology 11/04/18 15:30 Stool Culture - Final Stool Stool Gross Appearance - Final Shiga Toxin I & II - Final Negative Shiga Toxin 1 & 2 Stool Occult Blood (IKE) - Final 11/01/18 03:12 Aerobic Blood Culture - Final Blood Venous Not Reportable Anaerobic Blood Culture - Final Not Reportable Blood Culture - Final No Growth Day 5 11/01/18 00:46 Aerobic Blood Culture - Final Blood Venous Not Reportable Anaerobic Blood Culture - Final Not Reportable Blood Culture - Final No Growth Day 5 10/31/18 19:45 Aerobic Blood Culture - Final Blood Venous Strep Dysgalactiae (Grp C) Anaerobic Blood Culture - Preliminary No Growth Day 3 11/03/18 17:20 Urine Culture - Final Urine No Growth (<1,000 CFU/mL) 11/01/18 02:18 Urine Culture - Final Urine No Growth (<1,000 CFU/mL) 11/01/18 04:05 Nasal Screen MRSA (PCR) - Final Nasal Mrsa Detected Diagnostic Imaging: Exam Date: 11/02/18 1400 - MRI LOWER EXTREMITY RIGHT W/O IMPRESSION: FINDINGS MOST CONSISTENT WITH OSTEOMYELITIS INVOLVING THE DISTAL PHALANX OF THE GREAT TOE. Skin Deviation Note - Skin Deviation Findings Right anterior and medial lower leg - There are some scabbed areas, but no open skin. There is slight erythema to the lower leg. Right lower leg - There are a few small scabbed areas and flaky skin. The skin is intact. There is no drainage noted and mild surrounding erythema. Left anterior lower leg - There are a superficial open areas and a few scabbed areas and dry flaky skin. The superficial open area measures, 2.5 cm x 2 cm x 0.1 cm. The wound base is pink granulation tissue. There is no drainage. The surrounding skin is intact with mild erythema. Left medial lower leg - There are a superficial open areas and a few scabbed areas and dry flaky skin. The superficial open area measures, 1.2 cm x 1.5 cm x 0.1 cm. The wound base is pink granulation tissue. There is no drainage. The surrounding skin is intact with mild erythema. Not pictured: There is a superficial open area, measures 0.5 cm x 0.5 cm x 0.1 cm. The wound base is pink granulation tissue. There is no drainage. The surrounding skin is intact with mild erythema. Assessment/Plan: Ms. Mendes is a 73-year-old female with past medical history significant for CAD, peripheral neuropathy, TIA, anemia, chronic bilateral lower extremity lymphedema , chronic renal insufficiency, and DM 2, who initially presented to [facility] Emergency Room via ambulance after calling 911 due to generalized weakness. While in the [facility] Emergency Room, she was found to have signs of sepsis and was transferred to [facility]. She was admitted to the hospital for Sepsis, right 1st toe infection and cellulitis. While in the hospital she underwent a right 1st toe amputation with orthopedics on due to osteomyelitis. 1. Bilateral lower extremity superficial wounds. These wounds are chronic, secondary to venous insufficiency. Recommend washing the legs with soap and water, and apply lotion to the intact skin daily. If the open areas start to weep, can use calcium alginate and rolled gauze, changing the dressing daily to every other day. Consider ABIs if not done recently. She shold continued to follow with the [place] wound clinic at discharge. 2. Chronic bilateral LE lymphedema. 3. Right 1st toe osteomyelitis. S/P Right 1st toe amputation. Dressing per orthopedics. 4. DM2. HgA1C was 6.8 during this hospitalization. Maintain good glycemic control to allow for wound healing. 5. Concern for malnutrition. Prealbuim is <3. Dietary following. 6. Diet. Consistent Carbohydrate diet. 7. Code Status. Full Code Status. 8. Disposition. Inpatient, disposition per orthopedics. TIME SPENT: Time for this wound consultation was 30 minutes and 20 minutes was spent with the patient and family discussing PMH; assessing, measuring, and photographing the wounds. Wound Problem/Plan Is Patient a Wound Clinic Patient: No - Previously seen by Dr. Hayden in 2017 for a left heel pressure injury Attending: Cristine Key
[2018-11-06] MEDS: Calcium Carbonate CHEW TAB* 500 MG (TUMS) PO SCH (21:50)
[2018-11-06] MEDS: Nystatin TOP POWDER* 15 GM BTL TOPICAL SCH (23:07)
[2018-11-06 23:21] LABS: Urine Creatinine Concentration 123.24 mg/dL
[2018-11-07] MEDS ORDERED: NS 0.9% 1000 ML** 1,000 ML IV ONE (02:25)
[2018-11-07 04:58] LABS: Hematocrit 24 % (35-47); Hemoglobin 7.9 g/dL (12.0-16.0); Mean Corpuscular HGB Conc 33 g/dL (31-36); Mean Corpuscular Hemoglobin 31 pg (27-31); Mean Corpuscular Volume 94 fL (80-97); Mean Platelet Volume 9.2 fL (7.4-10.4); Platelet Count 117 10^3/uL (150-450); Red Blood Count 2.51 10^6 /uL (3.70-4.87); Red Cell Distribution Width 18 % (10-15); White Blood Count 9.2 10^3/uL (3.5-10.8)
[2018-11-07 05:10] LABS: Albumin 2.4 g/dL (3.2-5.2); Calcium 7.6 mg/dL (8.6-10.3); Magnesium 1.8 mg/dL (1.9-2.7); Potassium 4.7 mmol/L (3.5-5.0)
[2018-11-07 05:15] LABS: BUN/Creatinine Ratio 24.3 (8-20); EGFR African American 21.1 (>60); EGFR Non-African American 17.4 (>60); Phosphorus 4.9 mg/dL (2.5-5.0); Total Protein 4.7 g/dL (6.4-8.9)
[2018-11-07 05:16] LABS: Globulin 2.3 g/dL (2-4)
[2018-11-07] MEDS ORDERED: Furosemide IV* 10 MG/ML 2 ML VIAL (20 MG) IV ONE (05:30)
[2018-11-07] MEDS ORDERED: Furosemide IV* 10 MG/ML 2 ML VIAL (20 MG) ONE (05:45)
[2018-11-07] MEDS: Heparin VIAL(*) 5000 UNITS/ML VIAL (FIVE THOUSAND) SUBCUT SCH ×3 (06:35→21:47)
[2018-11-07] MEDS: Norepinephrine VIAL 8 MG in NS 0.9% 500 ML IV SCH (06:36)
--- NOTE | 2018-11-07 09:06 | PN ---
Progress Note - Progress Note Date of Service: 11/07/18 SOAP: Subjective: CC: Right foot infection HPI: Ms Mendes is a 73 yo female with PMH significant for CAD, peripheral neuropathy, TIA, anemia, chronic bilateral LE lymphedema, chronic renal insufficiency, and DM2 who presented to the emergency room with complaints of weakness and was found to have a right foot infection. She was moved to the ICU for monitoring overnight due to her increased drowsiness yesterday. She remains drowsy, but answered questions. Denies fever, chills, nausea, pain in the right LE. Objective: Vital Signs 11/07/18 11/07/18 11/07/18 07:30 07:46 07:54 Temperature 97.7 F Pulse Rate 55 64 Respiratory 16 19 Rate Blood Pressure 99/51 118/41 (mmHg) O2 Sat by Pulse 100 96 Oximetry 11/07/18 11/07/18 11/07/18 08:00 08:04 08:16 Temperature Pulse Rate 70 63 Respiratory 15 16 Rate Blood Pressure 135/48 101/52 (mmHg) O2 Sat by Pulse 96 99 97 Oximetry Physical Exam: General: NAD, sitting up in bed Neurological: Drowsy, Oriented x 3 HEENT: Moist MM, no thrush Cardiovascular: Heart rate regular, systolic murmur Respiratory: Lung sound clear bilateral Abdominal: Bowel sounds present; ABD soft, non tender and non distended Skin: Incision to right 1st toe well approximated with small amount of dry bloody drainage Laboratory Last Values WBC 9.2 10^3/uL (3.5-10.8) 11/07/18 04:39 RBC 2.51 10^6 /uL (3.70-4.87) L 11/07/18 04:39 Hgb 7.9 g/dL (12.0-16.0) L 11/07/18 04:39 Hct 24 % (35-47) L 11/07/18 04:39 MCV 94 fL (80-97) 11/07/18 04:39 MCH 31 pg (27-31) 11/07/18 04:39 MCHC 33 g/dL (31-36) 11/07/18 04:39 RDW 18 % (10-15) H 11/07/18 04:39 Plt Count 117 10^3/uL (150-450) L 11/07/18 04:39 MPV 9.2 fL (7.4-10.4) 11/07/18 04:39 Neut % (Auto) 82.3 % 11/06/18 05:26 Lymph % (Auto) 9.5 % 11/06/18 05:26 [place] % (Auto) 5.4 % 11/06/18 05:26 Eos % (Auto) 2.0 % 11/06/18 05:26 Baso % (Auto) 0.8 % 11/06/18 05:26 Absolute Neuts (auto) 16.7 10^3/ul (1.5-7.7) H 11/06/18 05:26 Absolute Lymphs (auto) 1.9 10^3/ul (1.0-4.8) 11/06/18 05:26 Absolute Monos (auto) 1.1 10^3/ul (0-0.8) H 11/06/18 05:26 Absolute Eos (auto) 0.4 10^3/ul (0-0.6) 11/06/18 05:26 Absolute Basos (auto) 0.2 10^3/ul (0-0.2) 11/06/18 05:26 Absolute Nucleated RBC 0.0 10^3/ul 11/06/18 05:26 Nucleated RBC % 0.0 11/06/18 05:26 Eosinophil Smear None seen 11/06/18 22:50 APTT 62.4 seconds (26.0-38.0) H 11/06/18 20:28 Patient Temperature Not Reportable 11/06/18 15:40 ABG pH 7.36 (7.35-7.45) 11/06/18 15:40 ABG pH (Temp Correct) Not Reportable 11/06/18 15:40 ABG pCO2 31 mmHg (35-45) L 11/06/18 15:40 ABG pCO2 (Temp Corrct Not Reportable 11/06/18 15:40 ABG pO2 121 mmHg (80-100) H 11/06/18 15:40 ABG pO2 (Temp Correct Not Reportable 11/06/18 15:40 ABG HCO3 19.6 mmol/L (19-31) 11/06/18 15:40 ABG O2 Saturation 99.9 % (94.0-98.0) H 11/06/18 15:40 ABG Base Excess -6.8 mmol/L (-2.0-2.0) L 11/06/18 15:40 Respiration Rate Not Reportable 11/06/18 15:40 O2 Delivery Device nasal cannula 2lpm 11/06/18 15:40 Ventilator Type Not Reportable 11/06/18 15:40 Vent Mode Not Reportable 11/06/18 15:40 FiO2 Not Reportable 11/06/18 15:40 Inspiratory Time Not Reportable 11/06/18 15:40 PEEP Not Reportable 11/06/18 15:40 Pressure Support Not Reportable 11/06/18 15:40 Pressure Control Not Reportable 11/06/18 15:40 EPAP Not Reportable 11/06/18 15:40 IPAP Not Reportable 11/06/18 15:40 BiPAP Not Reportable 11/06/18 15:40 Sodium 134 mmol/L (135-145) L 11/07/18 04:39 Potassium 4.7 mmol/L (3.5-5.0) 11/07/18 04:39 Chloride 108 mmol/L (101-111) 11/07/18 04:39 Carbon Dioxide 18 mmol/L (22-32) L 11/07/18 04:39 Anion Gap 8 mmol/L (2-11) 11/07/18 04:39 BUN 65 mg/dL (6-24) H 11/07/18 04:39 Creatinine 2.68 mg/dL (0.51-0.95) H 11/07/18 04:39 Est GFR ( Amer) 21.1 (>60) 11/07/18 04:39 Est GFR (Non-Af Amer) 17.4 (>60) 11/07/18 04:39 BUN/Creatinine Ratio 24.3 (8-20) H 11/07/18 04:39 Glucose 146 mg/dL (70-100) H 11/07/18 04:39 POC Glucose (mg/dL) 118 mg/dL (70-100) H 11/06/18 21:41 Hemoglobin A1c 6.8 % (4.0-5.6) H 11/01/18 03:39 Lactic Acid 1.3 mmol/L (0.5-2.0) 11/07/18 04:39 Calcium 7.6 mg/dL (8.6-10.3) L 11/07/18 04:39 Ionized Calcium 1.03 mmol/L (1.16-1.32) L 11/07/18 04:39 Phosphorus 4.9 mg/dL (2.5-5.0) 11/07/18 04:39 Magnesium 1.8 mg/dL (1.9-2.7) L 11/07/18 04:39 Iron < 17 ug/dL (50-212) L 11/01/18 00:46 TIBC 155 mcg/dL (250-450) L 11/01/18 00:46 % Saturation 11 % (15-55) L 11/01/18 00:46 Unsat Iron Binding < 140 ug/dL 11/01/18 00:46 Transferrin < 75 mg/dL (203-362) L 11/06/18 20:28 Total Bilirubin 1.00 mg/dL (0.2-1.0) 11/07/18 04:39 Direct Bilirubin 0.50 mg/dL (0.03-0.18) H 11/06/18 05:26 Indirect Bilirubin 0.3 mg/dL (0.3-1.0) 11/06/18 05:26 AST 30 U/L (13-39) 11/07/18 04:39 ALT 9 U/L (7-52) 11/07/18 04:39 Alkaline Phosphatase 381 U/L (34-104) H 11/07/18 04:39 Ammonia 37 mcmol/L (16-53) 11/06/18 20:28 Troponin I 0.18 ng/mL (<0.04) H* 11/01/18 11:22 C-Reactive Protein 98.07 mg/L (<8.01) H 11/04/18 14:26 B-Natriuretic Peptide 1289 pg/mL (<=100) H 11/07/18 04:39 Total Protein 4.7 g/dL (6.4-8.9) L 11/07/18 04:39 Albumin 2.4 g/dL (3.2-5.2) L 11/07/18 04:39 Globulin 2.3 g/dL (2-4) 11/07/18 04:39 Albumin/Globulin Ratio 1.0 (1-3) 11/07/18 04:39 Prealbumin < 3 mg/dL (18-38) L 11/04/18 03:24 Vitamin B12 > 1450 pg/mL (180-914) H 11/01/18 00:46 Folate > 20.00 ng/mL (>3.99) 11/01/18 00:46 Urine Color Destiny 11/03/18 17:20 Urine Appearance Turbid 11/03/18 17:20 Urine pH 5.0 (5-9) 11/03/18 17:20 Ur Specific [place] 1.017 (1.010-1.030) 11/03/18 17:20 Urine Protein 2+(100 mg/dl) (Negative) A 11/03/18 17:20 Urine Ketones Negative (Negative) 11/03/18 17:20 Urine Blood Negative (Negative) 11/03/18 17:20 Urine Nitrate Negative (Negative) 11/03/18 17:20 Urine Bilirubin Negative (Negative) 11/03/18 17:20 Urine Urobilinogen Negative (Negative) 11/03/18 17:20 Ur Leukocyte Esterase Negative (Negative) 11/03/18 17:20 Urine WBC (Auto) 1+(6-10/hpf) (Absent) A 11/03/18 17:20 Urine RBC (Auto) Trace(0-2/hpf) (Absent) 11/03/18 17:20 Ur Squamous Epith Cells Present (Absent) A 11/03/18 17:20 Urine Bacteria Absent (Absent) 11/03/18 17:20 Urine Yeast Present (Absent) A 11/01/18 02:18 Urine Collection Time 24 hr 11/05/18 18:00 Urine Total Volume 200 mL 11/05/18 18:00 Ur Creatinine 24 Hour 229.90 mg/24Hr (600-1800) L 11/05/18 18:00 Ur Creatinine Concen 123.24 mg/dL 11/06/18 22:50 Ur Total Protein Conc 84 mg/dL 11/05/18 18:00 Ur Total Protein 24 Hr 168 mg/24Hr (0-165) H 11/05/18 18:00 Ur Urea Nitrogen Conc 181 mg/dL 11/06/18 22:50 Urine Glucose Negative (Negative) 11/03/18 17:20 Vancomycin Trough 20.5 mcg/mL 11/04/18 03:24 [place] Light Chain 32.0 mg/dL H 11/05/18 06:47 Lambda Light Chain 18.6 mg/dL H 11/05/18 06:47 [place]/Lambda Ratio 1.72 H 11/05/18 06:47 Blood Type A Positive 11/01/18 03:12 Antibody Screen Negative 11/01/18 03:12 Crossmatch See Detail 11/01/18 03:12 Microbiology 10/31/18 19:45 Aerobic Blood Culture - Final Blood Venous Strep Dysgalactiae (Grp C) Anaerobic Blood Culture - Preliminary No Growth Day 4 11/04/18 15:30 Stool Culture - Final Stool Stool Gross Appearance - Final Shiga Toxin I & II - Final Negative Shiga Toxin 1 & 2 Stool Occult Blood (IKE) - Final 11/01/18 03:12 Aerobic Blood Culture - Final Blood Venous Not Reportable Anaerobic Blood Culture - Final Not Reportable Blood Culture - Final No Growth Day 5 11/01/18 00:46 Aerobic Blood Culture - Final Blood Venous Not Reportable Anaerobic Blood Culture - Final Not Reportable Blood Culture - Final No Growth Day 5 11/03/18 17:20 Urine Culture - Final Urine No Growth (<1,000 CFU/mL) 11/01/18 02:18 Urine Culture - Final Urine No Growth (<1,000 CFU/mL) 11/01/18 04:05 Nasal Screen MRSA (PCR) - Final Nasal Mrsa Detected Assessment: 1. Right first toe chronic osteomyelitis with associated cellulitis. S/P right 1st toe ampulation, POD #2. 2. Group B strep bacteremia. Suspect secondary to #1. Initial cultures at [facility] positive and 1 bottle positive on admission to [facility] [place]. Repeat cultures from 11/01 negative. 3. Leukocytosis. Suspect secondary to #1. Resolved. 4. DM2 with peripheral neuropathy. Plan: Continue Ceftriaxone (will increase to 2 gm IV daily) and Flagyl. Will need an extended course of IV ABX.
[2018-11-07] MEDS: Cholecalciferol TAB* 400 UNIT PO SCH (09:18)
[2018-11-07] MEDS: Aspirin EC TAB* 81 MG TAB.EC PO SCH (09:18)
[2018-11-07] MEDS: Gabapentin CAP(*) 100 MG PO SCH (09:18)
[2018-11-07] MEDS: Atorvastatin* 80 MG TAB PO SCH (09:18)
[2018-11-07] MEDS: Insulin LISPRO* 1 UNITS UNIT SUBCUT SCH ×4 (09:18→21:46)
[2018-11-07] MEDS: Nystatin TOP POWDER* 15 GM BTL TOPICAL SCH ×3 (09:18→21:56)
[2018-11-07] MEDS: metroNIDAZOLE TAB* 250 MG PO SCH ×3 (09:18→21:46)
[2018-11-07] MEDS: Calcium Carbonate CHEW TAB* 500 MG (TUMS) PO SCH ×2 (09:19→21:46)
[2018-11-07] MEDS: cefTRIAXone(*) 1 GM in NS 0.9% 50 ML* 50 ML IVPB SCH (10:57)
[2018-11-07] MEDS ORDERED: cefTRIAXone(*) 1 GM in NS 0.9% 50 ML* 50 ML IVPB ONE (11:11)
--- NOTE | 2018-11-07 11:23 | PN ---
Date of Service: 11/07/18 - HD 7 Critical Care Services: 73 yo F with PMH which includes DM, HTN, CAD with previous CABG, CVA, lymphedema and chronic pain. She presented to the ED on 11/01 from [place] with complaints of right leg wounds, pain and redness. She was seen 2 days prior at wound clinic in [place]. Also reports, fever, chills, fatigue and diarrhea. Per patient she has been on outpatient antibiotics. On evaluation she was noted to be tachycardic to 102. Otherwise afebrile with stable vital signs. Physical exam notable for bilateral lower extremity edema , deep ulcer on plantar aspect of right great toe with some granulation tissue and is not malodorous, a little bit of bleeding of edges of the ulcer. Exam otherwise benign. WBC 9.9. Creatinine elevated at 1.40. Admitted to the hospitalist service for cellulitis and sepsis. Orthopedics consulted. Started on Vancomycin and Zosyn for broad spectrum coverage. IVF hydration for sepsis and KELBY. H&H dropped over the course of the day and transfused 2U PRBC. Lactic acid only 1.9. Notified by [facility] that their blood cultures are growing gram positive cocci in chains in 2 bottles. 11/02: TTE report with LVEF 55-60%, normal wall motion, no vegitation. 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 11/04: Blood cultures from [place] with Strep, sensitive to ceftriaxone (report on chart). ABx narrowed to Ceftriaxone. 11/05: Went to OR with Orthopedics for right great toe amputation. Poor urine output. Hypotensive to 80s but asymptomatic. Repeat blood cultures NGTD. ID consulted. Creatinine bumped to 2.16, IVF hydration restarted. 11/06: Increased lethargy, reporting pain of right leg. BPs remain soft with systolics mid 90s. Nephrology consulted for acute kidney injury. Transferred to ICU for further resuscitation and support 11/07: Overnight developed worsened oliguria unresponsive to IVF boluses and Lasix. Started on low dose levophed for hypotension. Vital Signs: Temp Pulse Resp BP SpO2 FiO2 97.7 F 60 23 134/53 99 11/07/18 07:54 11/07/18 11:01 11/07/18 11:01 11/07/18 11:01 11/07/18 11:01 Physical Exam: Gen: resting comfortably in bed HEENT: intact Lungs: CTAB Cardiac: RRR Abdomen: soft, NTND Extremities: lower legs severely edematous. cellulitis from ankles to knees bilaterally, improved. amputation site dressed Neuro: lethargic Fluid Balance (Past 24 Hours): I= O= Net Intake & Output 11/05/18 11/06/18 11/07/18 11/08/18 06:59 06:59 06:59 06:59 Intake Total 5164 916 0242 Output Total 575 500 159 26 Balance 700 0 4304 -26 Intake: IV Fluids 10 250 3343 Albumin 666 LR 200 NS (0.9%) 2677 NS 50ML, Ceftriazone 1G 50 Zosyn 0 ceftrixone 10 0 IVPB 425 ABX - VANCOMYCIN 260 Zosyn 110 ceftrixone 55 Oral 573 300 7249 Output: Urine 100 0 Barber 575 400 159 26 Other: Estimated Void Small # Bowel Movements 1 Estimated Stool Amount Medium Large Labs: Laboratory Results - last 24 hr 11/05/18 11/06/18 11/06/18 06:47 12:17 15:40 WBC RBC Hgb Hct MCV MCH MCHC RDW Plt Count MPV Eosinophil Smear APTT Patient Temperature Not Reportable ABG pH 7.36 ABG pH (Temp Correct) Not Reportable ABG pCO2 31 L ABG pCO2 (Temp Corrct Not Reportable ABG pO2 121 H ABG pO2 (Temp Correct Not Reportable ABG HCO3 19.6 ABG O2 Saturation 99.9 H ABG Base Excess -6.8 L Respiration Rate Not Reportable O2 Delivery Device nasal cannula 2lpm Ventilator Type Not Reportable Vent Mode Not Reportable FiO2 Not Reportable Inspiratory Time Not Reportable PEEP Not Reportable Pressure Support Not Reportable Pressure Control Not Reportable EPAP Not Reportable IPAP Not Reportable BiPAP Not Reportable Sodium Potassium Chloride Carbon Dioxide Anion Gap BUN Creatinine Est GFR ( Amer) Est GFR (Non-Af Amer) BUN/Creatinine Ratio Glucose POC Glucose (mg/dL) 135 H Lactic Acid Calcium Ionized Calcium Phosphorus Magnesium Transferrin Total Bilirubin AST ALT Alkaline Phosphatase Ammonia B-Natriuretic Peptide Total Protein Albumin Globulin Albumin/Globulin Ratio Ur Creatinine Concen Ur Urea Nitrogen Conc [place] Light Chain 32.0 H Lambda Light Chain 18.6 H [place]/Lambda Ratio 1.72 H 11/06/18 11/06/18 11/06/18 17:24 20:28 20:28 WBC RBC Hgb Hct MCV MCH MCHC RDW Plt Count MPV Eosinophil Smear APTT 62.4 H Patient Temperature ABG pH ABG pH (Temp Correct) ABG pCO2 ABG pCO2 (Temp Corrct ABG pO2 ABG pO2 (Temp Correct ABG HCO3 ABG O2 Saturation ABG Base Excess Respiration Rate O2 Delivery Device Ventilator Type Vent Mode FiO2 Inspiratory Time PEEP Pressure Support Pressure Control EPAP IPAP BiPAP Sodium Potassium Chloride Carbon Dioxide Anion Gap BUN Creatinine Est GFR ( Amer) Est GFR (Non-Af Amer) BUN/Creatinine Ratio Glucose POC Glucose (mg/dL) 127 H Lactic Acid Calcium Ionized Calcium Phosphorus Magnesium Transferrin < 75 L Total Bilirubin AST ALT Alkaline Phosphatase Ammonia B-Natriuretic Peptide Total Protein Albumin Globulin Albumin/Globulin Ratio Ur Creatinine Concen Ur Urea Nitrogen Conc [place] Light Chain Lambda Light Chain [place]/Lambda Ratio 11/06/18 11/06/18 11/06/18 20:28 21:41 22:50 WBC RBC Hgb Hct MCV MCH MCHC RDW Plt Count MPV Eosinophil Smear APTT Patient Temperature ABG pH ABG pH (Temp Correct) ABG pCO2 ABG pCO2 (Temp Corrct ABG pO2 ABG pO2 (Temp Correct ABG HCO3 ABG O2 Saturation ABG Base Excess Respiration Rate O2 Delivery Device Ventilator Type Vent Mode FiO2 Inspiratory Time PEEP Pressure Support Pressure Control EPAP IPAP BiPAP Sodium Potassium Chloride Carbon Dioxide Anion Gap BUN Creatinine Est GFR ( Amer) Est GFR (Non-Af Amer) BUN/Creatinine Ratio Glucose POC Glucose (mg/dL) 118 H Lactic Acid Calcium Ionized Calcium Phosphorus Magnesium Transferrin Total Bilirubin AST ALT Alkaline Phosphatase Ammonia 37 B-Natriuretic Peptide Total Protein Albumin Globulin Albumin/Globulin Ratio Ur Creatinine Concen 123.24 Ur Urea Nitrogen Conc 181 [place] Light Chain Lambda Light Chain [place]/Lambda Ratio 11/06/18 11/07/18 11/07/18 22:50 04:39 04:39 WBC RBC Hgb Hct MCV MCH MCHC RDW Plt Count MPV Eosinophil Smear None seen APTT Patient Temperature ABG pH ABG pH (Temp Correct) ABG pCO2 ABG pCO2 (Temp Corrct ABG pO2 ABG pO2 (Temp Correct ABG HCO3 ABG O2 Saturation ABG Base Excess Respiration Rate O2 Delivery Device Ventilator Type Vent Mode FiO2 Inspiratory Time PEEP Pressure Support Pressure Control EPAP IPAP BiPAP Sodium Potassium Chloride Carbon Dioxide Anion Gap BUN Creatinine Est GFR ( Amer) Est GFR (Non-Af Amer) BUN/Creatinine Ratio Glucose POC Glucose (mg/dL) Lactic Acid Calcium Ionized Calcium 1.03 L Phosphorus Magnesium Transferrin Total Bilirubin AST ALT Alkaline Phosphatase Ammonia B-Natriuretic Peptide 1289 H Total Protein Albumin Globulin Albumin/Globulin Ratio Ur Creatinine Concen Ur Urea Nitrogen Conc [place] Light Chain Lambda Light Chain [place]/Lambda Ratio 11/07/18 11/07/18 11/07/18 04:39 04:39 04:39 WBC 9.2 RBC 2.51 L Hgb 7.9 L Hct 24 L MCV 94 MCH 31 MCHC 33 RDW 18 H Plt Count 117 L MPV 9.2 Eosinophil Smear APTT Patient Temperature ABG pH ABG pH (Temp Correct) ABG pCO2 ABG pCO2 (Temp Corrct ABG pO2 ABG pO2 (Temp Correct ABG HCO3 ABG O2 Saturation ABG Base Excess Respiration Rate O2 Delivery Device Ventilator Type Vent Mode FiO2 Inspiratory Time PEEP Pressure Support Pressure Control EPAP IPAP BiPAP Sodium 134 L Potassium 4.7 Chloride 108 Carbon Dioxide 18 L Anion Gap 8 BUN 65 H Creatinine 2.68 H Est GFR ( Amer) 21.1 Est GFR (Non-Af Amer) 17.4 BUN/Creatinine Ratio 24.3 H Glucose 146 H POC Glucose (mg/dL) Lactic Acid 1.3 Calcium 7.6 L Ionized Calcium Phosphorus 4.9 Magnesium 1.8 L Transferrin Total Bilirubin 1.00 AST 30 ALT 9 Alkaline Phosphatase 381 H Ammonia B-Natriuretic Peptide Total Protein 4.7 L Albumin 2.4 L Globulin 2.3 Albumin/Globulin Ratio 1.0 Ur Creatinine Concen Ur Urea Nitrogen Conc [place] Light Chain Lambda Light Chain [place]/Lambda Ratio 11/07/18 08:45 WBC RBC Hgb Hct MCV MCH MCHC RDW Plt Count MPV Eosinophil Smear APTT Patient Temperature ABG pH ABG pH (Temp Correct) ABG pCO2 ABG pCO2 (Temp Corrct ABG pO2 ABG pO2 (Temp Correct ABG HCO3 ABG O2 Saturation ABG Base Excess Respiration Rate O2 Delivery Device Ventilator Type Vent Mode FiO2 Inspiratory Time PEEP Pressure Support Pressure Control EPAP IPAP BiPAP Sodium Potassium Chloride Carbon Dioxide Anion Gap BUN Creatinine Est GFR ( Amer) Est GFR (Non-Af Amer) BUN/Creatinine Ratio Glucose POC Glucose (mg/dL) 179 H Lactic Acid Calcium Ionized Calcium Phosphorus Magnesium Transferrin Total Bilirubin AST ALT Alkaline Phosphatase Ammonia B-Natriuretic Peptide Total Protein Albumin Globulin Albumin/Globulin Ratio Ur Creatinine Concen Ur Urea Nitrogen Conc [place] Light Chain Lambda Light Chain [place]/Lambda Ratio Studies: 11/06 US liver - gallbladder sludge 11/06 CT chest and abdomen - bilateral pleural effusions. subsegmental atelectasis, ground glass opacities. No retroperitoneal mass identified. RLQ SQ hematoma. 11/06 US renal - Retroperitoneal structure noted. CT recommended. Unremarkable exam of kidneys. 11/02 MR right leg - osteomyelitis of distal phalynx of great toe 11/01 XR right foot - no definite osteopenia. Multiple areas of degenerative joint disease noted. 11/01 CXR - pulmonary vascular congestion Nutrition: diabetic diet with supplimentary glucerna Impression: 73 yo F with PMH including CAD, CVA, DM presented with bilateral lower extremity cellulitis, right great toe osteomyelitis and sepsis on 11/01/2018. She was treated with broad spectrum antibiotics and underwent right great toe amputation on 11/05/2018. Transferred to ICU on 11/06/2018 for SIRS response, hypotension and oliguria. Plan: Cardiovascular: (1) Septic shock; (2) Chronic hypertension; (3) elevated troponin on admission; (4) CAD with history of CABG; (5) Bilateral lower extremity lymphedema -- HR 54-86 -- SBP 82-135 -- Telemetry -- Vasopressors Levophed @ 2 mcg/min -- TTE, 11/02: LVEF 55-60%, normal wall motion. -- BNP 1289 -- ASA -- Atorvastatin -- Metoprolol, hold secondary to vasopressor needs -- scheduled albumin Home meds: Amlodipine, ASA, Atorvastatin, Lasix, Lisinopril, Metolazone, Metoprolol Pulmonary: No acute issues -- RR 10-22 -- sats 93-100 on 2L NC Home meds: None Gastrointestinal: (1) Diarrhea, possibly secondary to antibiotics; (2) Hypoalbuminemia, improving; (3) Elevated ALK -- LFTs Tbili 1.0 ALK 381 from 319 from 153, follow trend AST 30 ALT 9 -- Total protein 4.5, low -- Albumin 2.4 from <1.5, low -- diet: carb control with glucerna -- bowel regimen: None -- ulcer prophylaxis: Not indicated at this time Home meds: None Endocrine: (1) Diabetes mellitus type 2 -- monitor BGs -- Sliding scale insulin Home meds: Insulin NPH Renal: (1) Acute kidney failure on chronic renal insuffiency, with oliguria; (2 ) Hyponatremia; (3) Hypocalcemia; (4) Hyperkalemia, resolved; (5) Intravascular hypovolemia -- UOP: 7 ml/hr -- Cr 2.68 from 2.42 -- Lytes Na 134 from 133, follow trend, on NS K 4.7 Ca 7.6, ionized 1.03, on replacement Mag 1.8, replace Phos 4.9 -- IVF: NS @ 75 ml/hr -- Albumin gtt per Nephrology -- Calcium carbonate -- Nephrology following Home meds: Lasix, Metolazone Infectious disease: (1) Sepsis; (2) Diabetic foot ulcer with osteomyelitis s/p right great toe amputation; (3) Bilateral lower extremity cellulitis; (4) Community acquired pneumonia; (5) Hx of pseudomonal bacteremia -- Tmax 99.2 -- WBC 9.2 from 20.3 -- Micro 11/04 Stool negative for Shiga 11/03 urine negative 11/01 MRSA screen Positive blood negative urine negative 10/31 Blood-fatuma Strep Dysgalactiae (grp C) -- ABX Rocephin Flagyl Home meds: None Neurologic: (1) Diabetic neuropathy; (2) Chronic pain; (3) hx of stroke -- PRN Tylenol -- Gabapentin -- Methadone Home meds: Gabapentin, Methadone Hematological: (1) Chronic anemia; (2) Mild thrombocytopenia -- Hgb 7.9 from 10.4 from 9.9, follow trend -- Plt 117 from 153 from 143 -- DVT prophylaxis: SQ Heparin -- ASA Home meds: ASA Metabolic: No acute issues Home meds: None Other: No acute issues -- Cholecalciferol, Home meds: Cholecalciferol, Vitamin B12 Deep vein thrombosis prophylaxis: SQ Heparin Dietary: Not indicated at this time Condition: Serious Prognosis: guarded Code status: full Disposition: transferred to ICU Cumulative time spent in the care of this patient (excluding any procedure time) : at least 40 minutes. Patient care included clinical interview (with patient and/or family), bedside exam of the patient, review of labs, x-rays, and other ancillary data, coordination of (respiratory, nursing care, review of patient's records, discussion regarding patients management with involved consultants, primary physician, pharmacists, and other healthcare personnel (dietary, case management , physical/occupational therapy etc.) Critical care time: 40 min
[2018-11-07] MEDS: Albumin Human 25%* 12.5 GM/50 ML BTL IV SCH ×2 (13:28→17:28)
--- NOTE | 2018-11-07 13:46 | PN ---
Progress Note - Progress Note Date of Service: 11/07/18 SOAP: Subjective: []Pt seen at bedside in ICU. She participates minimally in exam. She is quite sedated, though reports her right foot is not painful. Dressing was taken off overnight due to patient discomfort. Objective: []Gen: appears uncomfortable, sedated. Awake to spoken voice but does not follow commands or answer questions. RLE: Incision is CDI, there is no erythema or discharge. Foot and lower leg remain swollen, there is erythema knee to ankle. Dp1+, capillary refill less than two seconds ditsally Assessment: [] POD 2 sp R great toe amputation Plan: []Heel WB RLE Continue abx per ID : currently on ceftriaxone and flagyl Heparin sq DVT prophy Surgical wound dressed with xeroform, gauze, kerlix and lucy wrap. Wraps placed loosely with ample tape as patient has severe swelling of lower legs, making dressings uncomfortable. Please keep dressing intact and replace if it is off, contact ortho with any concerns Vital Signs Temp 97.4 F 11/07/18 11:30 Pulse 66 11/07/18 13:00 Resp 21 11/07/18 13:00 BP 130/55 11/07/18 12:44 Pulse Ox 100 11/07/18 13:00 Intake & Output 11/06/18 11/07/18 11/07/18 18:59 06:59 18:59 Intake Total 240 4223 Output Total 100 59 47 Balance 140 4164 -47 Intake: IV Fluids 3343 Albumin 666 NS (0.9%) 2677 Zosyn 0 ceftrixone 0 Oral 240 880 Output: Urine 0 Barber 100 59 47 Laboratory Last Values WBC 9.2 10^3/uL (3.5-10.8) 11/07/18 04:39 RBC 2.51 10^6 /uL (3.70-4.87) L 11/07/18 04:39 Hgb 7.9 g/dL (12.0-16.0) L 11/07/18 04:39 Hct 24 % (35-47) L 11/07/18 04:39 MCV 94 fL (80-97) 11/07/18 04:39 MCH 31 pg (27-31) 11/07/18 04:39 MCHC 33 g/dL (31-36) 11/07/18 04:39 RDW 18 % (10-15) H 11/07/18 04:39 Plt Count 117 10^3/uL (150-450) L 11/07/18 04:39 MPV 9.2 fL (7.4-10.4) 11/07/18 04:39 Neut % (Auto) 82.3 % 11/06/18 05:26 Lymph % (Auto) 9.5 % 11/06/18 05:26 [place] % (Auto) 5.4 % 11/06/18 05:26 Eos % (Auto) 2.0 % 11/06/18 05:26 Baso % (Auto) 0.8 % 11/06/18 05:26 Absolute Neuts (auto) 16.7 10^3/ul (1.5-7.7) H 11/06/18 05:26 Absolute Lymphs (auto) 1.9 10^3/ul (1.0-4.8) 11/06/18 05:26 Absolute Monos (auto) 1.1 10^3/ul (0-0.8) H 11/06/18 05:26 Absolute Eos (auto) 0.4 10^3/ul (0-0.6) 11/06/18 05:26 Absolute Basos (auto) 0.2 10^3/ul (0-0.2) 11/06/18 05:26 Absolute Nucleated RBC 0.0 10^3/ul 11/06/18 05:26 Nucleated RBC % 0.0 11/06/18 05:26 Eosinophil Smear None seen 11/06/18 22:50 APTT 62.4 seconds (26.0-38.0) H 11/06/18 20:28 Patient Temperature Not Reportable 11/06/18 15:40 ABG pH 7.36 (7.35-7.45) 11/06/18 15:40 ABG pH (Temp Correct) Not Reportable 11/06/18 15:40 ABG pCO2 31 mmHg (35-45) L 11/06/18 15:40 ABG pCO2 (Temp Corrct Not Reportable 11/06/18 15:40 ABG pO2 121 mmHg (80-100) H 11/06/18 15:40 ABG pO2 (Temp Correct Not Reportable 11/06/18 15:40 ABG HCO3 19.6 mmol/L (19-31) 11/06/18 15:40 ABG O2 Saturation 99.9 % (94.0-98.0) H 11/06/18 15:40 ABG Base Excess -6.8 mmol/L (-2.0-2.0) L 11/06/18 15:40 Respiration Rate Not Reportable 11/06/18 15:40 O2 Delivery Device nasal cannula 2lpm 11/06/18 15:40 Ventilator Type Not Reportable 11/06/18 15:40 Vent Mode Not Reportable 11/06/18 15:40 FiO2 Not Reportable 11/06/18 15:40 Inspiratory Time Not Reportable 11/06/18 15:40 PEEP Not Reportable 11/06/18 15:40 Pressure Support Not Reportable 11/06/18 15:40 Pressure Control Not Reportable 11/06/18 15:40 EPAP Not Reportable 11/06/18 15:40 IPAP Not Reportable 11/06/18 15:40 BiPAP Not Reportable 11/06/18 15:40 Sodium 134 mmol/L (135-145) L 11/07/18 04:39 Potassium 4.7 mmol/L (3.5-5.0) 11/07/18 04:39 Chloride 108 mmol/L (101-111) 11/07/18 04:39 Carbon Dioxide 18 mmol/L (22-32) L 11/07/18 04:39 Anion Gap 8 mmol/L (2-11) 11/07/18 04:39 BUN 65 mg/dL (6-24) H 11/07/18 04:39 Creatinine 2.68 mg/dL (0.51-0.95) H 11/07/18 04:39 Est GFR ( Amer) 21.1 (>60) 11/07/18 04:39 Est GFR (Non-Af Amer) 17.4 (>60) 11/07/18 04:39 BUN/Creatinine Ratio 24.3 (8-20) H 11/07/18 04:39 Glucose 146 mg/dL (70-100) H 11/07/18 04:39 POC Glucose (mg/dL) 179 mg/dL (70-100) H 11/07/18 08:45 Hemoglobin A1c 6.8 % (4.0-5.6) H 11/01/18 03:39 Lactic Acid 1.3 mmol/L (0.5-2.0) 11/07/18 04:39 Calcium 7.6 mg/dL (8.6-10.3) L 11/07/18 04:39 Ionized Calcium 1.03 mmol/L (1.16-1.32) L 11/07/18 04:39 Phosphorus 4.9 mg/dL (2.5-5.0) 11/07/18 04:39 Magnesium 1.8 mg/dL (1.9-2.7) L 11/07/18 04:39 Iron < 17 ug/dL (50-212) L 11/01/18 00:46 TIBC 155 mcg/dL (250-450) L 11/01/18 00:46 % Saturation 11 % (15-55) L 11/01/18 00:46 Unsat Iron Binding < 140 ug/dL 11/01/18 00:46 Transferrin < 75 mg/dL (203-362) L 11/06/18 20:28 Total Bilirubin 1.00 mg/dL (0.2-1.0) 11/07/18 04:39 Direct Bilirubin 0.50 mg/dL (0.03-0.18) H 11/06/18 05:26 Indirect Bilirubin 0.3 mg/dL (0.3-1.0) 11/06/18 05:26 AST 30 U/L (13-39) 11/07/18 04:39 ALT 9 U/L (7-52) 11/07/18 04:39 Alkaline Phosphatase 381 U/L (34-104) H 11/07/18 04:39 Ammonia 37 mcmol/L (16-53) 11/06/18 20:28 Troponin I 0.18 ng/mL (<0.04) H* 11/01/18 11:22 C-Reactive Protein 98.07 mg/L (<8.01) H 11/04/18 14:26 B-Natriuretic Peptide 1289 pg/mL (<=100) H 11/07/18 04:39 Total Protein 4.7 g/dL (6.4-8.9) L 11/07/18 04:39 Albumin 2.4 g/dL (3.2-5.2) L 11/07/18 04:39 Globulin 2.3 g/dL (2-4) 11/07/18 04:39 Albumin/Globulin Ratio 1.0 (1-3) 11/07/18 04:39 Prealbumin < 3 mg/dL (18-38) L 11/04/18 03:24 Vitamin B12 > 1450 pg/mL (180-914) H 11/01/18 00:46 Folate > 20.00 ng/mL (>3.99) 11/01/18 00:46 Urine Color [place] 11/03/18 17:20 Urine Appearance Turbid 11/03/18 17:20 Urine pH 5.0 (5-9) 11/03/18 17:20 Ur Specific [place] 1.017 (1.010-1.030) 11/03/18 17:20 Urine Protein 2+(100 mg/dl) (Negative) A 11/03/18 17:20 Urine Ketones Negative (Negative) 11/03/18 17:20 Urine Blood Negative (Negative) 11/03/18 17:20 Urine Nitrate Negative (Negative) 11/03/18 17:20 Urine Bilirubin Negative (Negative) 11/03/18 17:20 Urine Urobilinogen Negative (Negative) 11/03/18 17:20 Ur Leukocyte Esterase Negative (Negative) 11/03/18 17:20 Urine WBC (Auto) 1+(6-10/hpf) (Absent) A 11/03/18 17:20 Urine RBC (Auto) Trace(0-2/hpf) (Absent) 11/03/18 17:20 Ur Squamous Epith Cells Present (Absent) A 11/03/18 17:20 Urine Bacteria Absent (Absent) 11/03/18 17:20 Urine Yeast Present (Absent) A 11/01/18 02:18 Urine Collection Time 24 hr 11/05/18 18:00 Urine Total Volume 200 mL 11/05/18 18:00 Ur Creatinine 24 Hour 229.90 mg/24Hr (600-1800) L 11/05/18 18:00 Ur Creatinine Concen 123.24 mg/dL 11/06/18 22:50 Ur Total Protein Conc 84 mg/dL 11/05/18 18:00 Ur Total Protein 24 Hr 168 mg/24Hr (0-165) H 11/05/18 18:00 Ur Urea Nitrogen Conc 181 mg/dL 11/06/18 22:50 Urine Glucose Negative (Negative) 11/03/18 17:20 Vancomycin Trough 20.5 mcg/mL 11/04/18 03:24 [place] Light Chain 32.0 mg/dL H 11/05/18 06:47 Lambda Light Chain 18.6 mg/dL H 11/05/18 06:47 [place]ardan/Lambda Ratio 1.72 H 11/05/18 06:47 Blood Type A Positive 11/01/18 03:12 Antibody Screen Negative 11/01/18 03:12 Crossmatch See Detail 11/01/18 03:12
[2018-11-07 14:28] LABS: Albumin 1.1 g/dL (3.4-4.7); Albumin/Globulin Ratio 0.35; Gamma Globulin 1.7 g/dL (0.6-1.6); Total Protein(PEP) 4.3 g/dL (6.3 - 7.9)
[2018-11-07 22:24] LABS: Urine Creatinine Concentration 148.04 mg/dL
[2018-11-08] MEDS: Albumin Human 25%* 12.5 GM/50 ML BTL IV SCH ×2 (00:12→05:50)
[2018-11-08] MEDS: Norepinephrine VIAL 8 MG in NS 0.9% 500 ML IV SCH (05:49)
[2018-11-08] MEDS: Heparin VIAL(*) 5000 UNITS/ML VIAL (FIVE THOUSAND) SUBCUT SCH ×3 (05:51→21:42)
[2018-11-08 06:04] LABS: Hematocrit 25 % (35-47); Hemoglobin 8.5 g/dL (12.0-16.0); Mean Corpuscular HGB Conc 34 g/dL (31-36); Mean Corpuscular Hemoglobin 31 pg (27-31); Mean Corpuscular Volume 93 fL (80-97); Mean Platelet Volume 8.8 fL (7.4-10.4); Platelet Count 118 10^3/uL (150-450); Red Blood Count 2.72 10^6 /uL (3.70-4.87); Red Cell Distribution Width 18 % (10-15); White Blood Count 6.8 10^3/uL (3.5-10.8)
[2018-11-08 06:13] LABS: Activated Partial Thrombo Time 65.7 seconds (26.0-38.0); INR 1.5 (0.82-1.09)
[2018-11-08 06:27] LABS: Albumin 2.6 g/dL (3.2-5.2); Albumin/Globulin Ratio 0.8 (1-3); BUN/Creatinine Ratio 29.7 (8-20); Calcium 8.1 mg/dL (8.6-10.3); EGFR African American 22.9 (>60); Globulin 3.3 g/dL (2-4); Magnesium 1.9 mg/dL (1.9-2.7); Phosphorus 5.4 mg/dL (2.5-5.0); Potassium 4.8 mmol/L (3.5-5.0); Total Bilirubin 0.8 mg/dL (0.2-1.0); Total Protein 5.9 g/dL (6.4-8.9)
--- NOTE | 2018-11-08 08:59 | OP ---
DATE OF OPERATION: 11/05/18 - ROOM #ICU-04 DATE OF : 45 SURGEON: Dr. Luis Bustamante. CLINICAL NURSE REVIEWER: Marycarmen Jauregui PA-C PRE-OP DIAGNOSIS: Infected osteomyelitic right great toe. POST-OP DIAGNOSIS: Infected osteomyelitic right great toe. OPERATIVE PROCEDURE: Disarticulation, right great toe at the MTP joint. DESCRIPTION OF PROCEDURE: The patient was taken to the operating room, where a transverse elliptical incision was made with a longer dorsal flap than plantar as she had a large plantar ulcer. We dissected proximally through the flexor- extensor tendons to disarticulate the toe at the MTP joint level. The remaining tissues appeared relatively clean. The tourniquet was dropped to allow visualization and hemostasis. We irrigated thoroughly, but did send local cultures. The toe also was sent to Pathology. We closed dorsal to plantar using a 3-0 Monocryl and 2-0 Prolene sutures and a compression dressing was applied. [id number]/[facility] #: [id number] MTDD
[2018-11-08] MEDS: Insulin LISPRO* 1 UNITS UNIT SUBCUT SCH ×4 (09:40→21:42)
[2018-11-08] MEDS: Aspirin EC TAB* 81 MG TAB.EC PO SCH (09:46)
[2018-11-08] MEDS: Atorvastatin* 80 MG TAB PO SCH (09:46)
[2018-11-08] MEDS: metroNIDAZOLE TAB* 250 MG PO SCH ×3 (09:46→21:42)
[2018-11-08] MEDS: Gabapentin CAP(*) 100 MG PO SCH (09:46)
[2018-11-08] MEDS: Cholecalciferol TAB* 400 UNIT PO SCH (09:46)
[2018-11-08] MEDS: Calcium Carbonate CHEW TAB* 500 MG (TUMS) PO SCH ×3 (09:48→21:16)
[2018-11-08] MEDS: Nystatin TOP POWDER* 15 GM BTL TOPICAL SCH ×3 (09:50→21:43)
--- NOTE | 2018-11-08 09:58 | PN ---
Date of Service: 11/08/18 - HD 8 Critical Care Services: 73 yo F with PMH which includes DM, HTN, CAD with previous CABG, CVA, lymphedema and chronic pain. She presented to the ED on 11/01 from [place] with complaints of right leg wounds, pain and redness. She was seen 2 days prior at wound clinic in [place]. Also reports, fever, chills, fatigue and diarrhea. Per patient she has been on outpatient antibiotics. On evaluation she was noted to be tachycardic to 102. Otherwise afebrile with stable vital signs. Physical exam notable for bilateral lower extremity edema , deep ulcer on plantar aspect of right great toe with some granulation tissue and is not malodorous, a little bit of bleeding of edges of the ulcer. Exam otherwise benign. WBC 9.9. Creatinine elevated at 1.40. Admitted to the hospitalist service for cellulitis and sepsis. Orthopedics consulted. Started on Vancomycin and Zosyn for broad spectrum coverage. IVF hydration for sepsis and KELBY. H&H dropped over the course of the day and transfused 2U PRBC. Lactic acid only 1.9. Notified by [facility] that their blood cultures are growing gram positive cocci in chains in 2 bottles. 11/02: TTE report with LVEF 55-60%, normal wall motion, no vegitation. 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 11/04: Blood cultures from [place] with Strep, sensitive to ceftriaxone (report on chart). ABx narrowed to Ceftriaxone. 11/05: Went to OR with Orthopedics for right great toe amputation. Poor urine output. Hypotensive to 80s but asymptomatic. Repeat blood cultures NGTD. ID consulted. Creatinine bumped to 2.16, IVF hydration restarted. 11/06: Increased lethargy, reporting pain of right leg. BPs remain soft with systolics mid 90s. Nephrology consulted for acute kidney injury. Transferred to ICU for further resuscitation and support 11/07: Overnight developed worsened oliguria unresponsive to IVF boluses and Lasix. Started on low dose levophed for hypotension. Seen by nephrology; does not yet meet criteria for HD 11/08: No overnight events. Vital Signs: Temp Pulse Resp BP SpO2 FiO2 99.2 F 68 17 134/45 96 11/08/18 07:44 11/08/18 09:01 11/08/18 09:01 11/08/18 09:01 11/08/18 09:01 Physical Exam: Gen: sitting up in bed. much brighter than yesterday. asking questions about interval events and how she is doing HEENT: moist mucus membranes Lungs: CTAB Cardiac: RRR Abdomen: soft, NTND Extremities: stable lower extremity lymphedema. left leg cellulitis improved again as compared to yesterday. right leg cellulitis unchanged as compared to yesterday but better than prior. wound dressed. Neuro: alert, conversant. much improved Fluid Balance (Past 24 Hours): I= O= Net Intake & Output 11/06/18 11/07/18 11/08/18 11/09/18 06:59 06:59 06:59 06:59 Intake Total 500 4463 1041 Output Total 500 159 172 Balance 0 4304 869 Weight 214 lb 11.684 oz Intake: IV Fluids 250 3343 308 Albumin 666 65 LR 200 NS (0.9%) 2677 243 NS 50ML, Ceftriazone 1G 50 Zosyn 0 ceftrixone 0 IVPB 220 Albumin 93 ceftrixone 127 Medicated IV 38 CC - Norepinephrine/ 38 Levophed Oral 250 1120 475 Output: Urine 100 0 Barber 400 159 172 Other: Estimated Stool Amount Large Labs: Laboratory Results - last 24 hr 11/05/18 11/07/18 11/07/18 06:47 11:51 17:12 WBC RBC Hgb Hct MCV MCH MCHC RDW Plt Count MPV INR (Anticoag Therapy) APTT Sodium Potassium Chloride Carbon Dioxide Anion Gap BUN Creatinine Est GFR ( Amer) Est GFR (Non-Af Amer) BUN/Creatinine Ratio Glucose POC Glucose (mg/dL) 192 H 200 H Calcium Ionized Calcium Phosphorus Magnesium Total Bilirubin AST ALT Alkaline Phosphatase Total Protein Total Protein (PEP) 4.3 L Albumin Albumin (PEP) 1.1 L Globulin Albumin/Globulin Ratio Albumin/Globulin (PEP) 0.35 Xhrea-8-Oydqihusp 0.3 Yyysk-1-Liowdytlk 0.7 Kmwu-2-Fjbnjavx 0.5 L Gamma Globulins 1.7 H M-Ilir Not Reportable M-Ilir 2 Not Reportable PEP Impression See comment Urine Collection Time Urine Total Volume Ur Creatinine 24 Hour Ur Creatinine Concen Ur Total Protein Conc Ur Total Protein 24 Hr 11/07/18 11/07/18 11/08/18 20:32 22:00 05:55 WBC RBC Hgb Hct MCV MCH MCHC RDW Plt Count MPV INR (Anticoag Therapy) 1.50 H APTT 65.7 H Sodium Potassium Chloride Carbon Dioxide Anion Gap BUN Creatinine Est GFR ( Amer) Est GFR (Non-Af Amer) BUN/Creatinine Ratio Glucose POC Glucose (mg/dL) 202 H Calcium Ionized Calcium Phosphorus Magnesium Total Bilirubin AST ALT Alkaline Phosphatase Total Protein Total Protein (PEP) Albumin Albumin (PEP) Globulin Albumin/Globulin Ratio Albumin/Globulin (PEP) Mabfq-5-Wafylfjgh Cegox-9-Dtuexeqzm Geet-4-Nzfcrrsj Gamma Globulins M-Ilir M-Ilir 2 PEP Impression Urine Collection Time 24 Urine Total Volume 100 Ur Creatinine 24 Hour 148.04 L D Ur Creatinine Concen 148.04 Ur Total Protein Conc 139 Ur Total Protein 24 Hr 139 11/08/18 11/08/18 11/08/18 05:55 05:55 05:55 WBC 6.8 RBC 2.72 L Hgb 8.5 L Hct 25 L MCV 93 MCH 31 MCHC 34 RDW 18 H Plt Count 118 L MPV 8.8 INR (Anticoag Therapy) APTT Sodium 135 Potassium 4.8 Chloride 108 Carbon Dioxide 18 L Anion Gap 9 BUN 74 H Creatinine 2.49 H Est GFR ( Amer) 22.9 Est GFR (Non-Af Amer) 19.0 BUN/Creatinine Ratio 29.7 H Glucose 82 POC Glucose (mg/dL) Calcium 8.1 L Ionized Calcium 1.10 L Phosphorus 5.4 H Magnesium 1.9 Total Bilirubin 0.80 AST 26 ALT 8 Alkaline Phosphatase 444 H Total Protein 5.9 L Total Protein (PEP) Albumin 2.6 L Albumin (PEP) Globulin 3.3 Albumin/Globulin Ratio 0.8 L Albumin/Globulin (PEP) Oubbc-6-Djajhrsfs Kblfu-8-Lypgzvljb Sbic-0-Wnrvupra Gamma Globulins M-Ilri M-Ilir 2 PEP Impression Urine Collection Time Urine Total Volume Ur Creatinine 24 Hour Ur Creatinine Concen Ur Total Protein Conc Ur Total Protein 24 Hr Studies: 11/06 US liver - gallbladder sludge 11/06 CT chest and abdomen - bilateral pleural effusions. subsegmental atelectasis, ground glass opacities. No retroperitoneal mass identified. RLQ SQ hematoma. 11/06 US renal - Retroperitoneal structure noted. CT recommended. Unremarkable exam of kidneys. 11/02 MR right leg - osteomyelitis of distal phalynx of great toe 11/01 XR right foot - no definite osteopenia. Multiple areas of degenerative joint disease noted. 11/01 CXR - pulmonary vascular congestion Nutrition: diabetic diet with supplementary glucerna Impression: 73 yo F with PMH including CAD, CVA, DM presented with bilateral lower extremity cellulitis, right great toe osteomyelitis and sepsis on 11/01/2018. She was treated with broad spectrum antibiotics and underwent right great toe amputation on 11/05/2018. Transferred to ICU on 11/06/2018 for SIRS response, hypotension and oliguria. Plan: Cardiovascular: (1) Septic shock, resolved; (2) Afib, rate controlled; (3) Chronic hypertension; (4) elevated troponin on admission; (5) CAD with history of CABG; (6) Bilateral lower extremity lymphedema -- HR 50-82 -- SBP 95-143 -- Telemetry -- Vasopressors Levophed weaned off -- TTE, 11/02: LVEF 55-60%, normal wall motion. -- BNP 1289 on 11/06, check repeat with AM labs -- ASA -- Atorvastatin -- albumin as needed for hypotension Home meds: Amlodipine, ASA, Atorvastatin, Lasix, Lisinopril, Metolazone, Metoprolol Pulmonary: No acute issues -- RR 12-23 -- sats 98-100 on 2L NC Home meds: None Gastrointestinal: (1) Diarrhea, possibly secondary to antibiotics; (2) Hypoalbuminemia, improving; (3) Elevated ALK -- LFTs Tbili 0.8 ALK 444 from 381, follow trend AST 26 ALT 8 -- Total protein 45.9 from .5, low -- Albumin 2.6 from 2.4 from <1.5, low -- diet: carb control with glucerna -- bowel regimen: None -- ulcer prophylaxis: Not indicated at this time Home meds: None Endocrine: (1) Diabetes mellitus type 2 -- monitor BGs -- Sliding scale insulin Home meds: Insulin NPH Renal: (1) Acute kidney failure on chronic renal insuffiency, with oliguria; (2 ) Hyponatremia, resolved; (3) Hypocalcemia; (4) Hyperkalemia, resolved; (5) Hyperphosphatemia; (6) Intravascular hypovolemia -- UOP: 7 ml/hr -- Cr 2.68 from 2.42 -- Lytes Na 135 from 134 K 4.8 Ca 8.1, ionized 1.10, on replacement Mag 1.9 Phos 5.4 from 4.9 -- IVF: NS @ 75 ml/hr, HL and use albumin as needed for volume given almost anuric state -- Albumin gtt per Nephrology -- Calcium carbonate -- Nephrology following; avoid diuretic use unless needed for respiratory effort given that it will delay renal recovery Home meds: Lasix, Metolazone Infectious disease: (1) Sepsis, improving; (2) Diabetic foot ulcer with osteomyelitis s/p right great toe amputation; (3) Bilateral lower extremity cellulitis, improving; (4) Community acquired pneumonia; (5) Hx of pseudomonal bacteremia -- Tmax 99.3 -- WBC 6.8 from 9.2 from 20.3 -- Micro 11/04 Stool no enteric pathogens 11/03 urine negative 11/01 MRSA screen Positive blood negative urine negative 10/31 Blood-fatuma Strep Dysgalactiae (grp C) -- ABX Rocephin Flagyl Home meds: None Neurologic: (1) Diabetic neuropathy; (2) Chronic pain; (3) hx of stroke -- PRN Tylenol -- Gabapentin -- Methadone Home meds: Gabapentin, Methadone Hematological: (1) Chronic anemia; (2) Mild thrombocytopenia -- Hgb 8.5 from 7.9 -- Plt 118 from 117 -- Coags INR 1.50 PTT 65.7 -- DVT prophylaxis: SQ Heparin -- ASA Home meds: ASA Metabolic: No acute issues Home meds: None Other: No acute issues -- Cholecalciferol -- pathology pending. Home meds: Cholecalciferol, Vitamin B12 Deep vein thrombosis prophylaxis: SQ Heparin Dietary: Not indicated at this time Condition: Serious Prognosis: guarded Code status: full Disposition: continue ICU care ICU. Daughter flying in from [place] today Cumulative time spent in the care of this patient (excluding any procedure time) : at least 40 minutes. Patient care included clinical interview (with patient and/or family), bedside exam of the patient, review of labs, x-rays, and other ancillary data, coordination of (respiratory, nursing care, review of patient's records, discussion regarding patients management with involved consultants, primary physician, pharmacists, and other healthcare personnel (dietary, case management , physical/occupational therapy etc.) Critical care time: 40 min
--- NOTE | 2018-11-08 10:23 | PN ---
Progress Note - Progress Note Date of Service: 11/08/18 SOAP: Subjective: CC: bacteremia HPI: 73 year old woman with diabetes and right great toe infection, now amputated. She denies foot, joint or back pain. Knees aren't painful, legs are swollen since being here. No fever or rash. Objective: Vital Signs Temp 37.3 C 11/08/18 07:44 Pulse 83 11/08/18 10:01 Resp 24 11/08/18 10:01 BP 136/82 11/08/18 10:01 Pulse Ox 98 11/08/18 10:01 Intake & Output 11/07/18 11/08/18 11/08/18 18:59 06:59 18:59 Intake Total 602 439 300 Output Total 75 97 72 Balance 527 342 228 Weight 214 lb 11.684 oz Intake: IV Fluids 109 199 Albumin 65 NS (0.9%) 109 134 IVPB 220 Albumin 93 ceftrixone 127 Medicated IV 38 CC - Norepinephrine/ 38 Levophed Oral 235 240 300 Output: Barber 75 97 72 Gen:in no distress Neuro: awake, answers questions appropriately HEENT: no thrush or conj hemorrhage Heart:RRR no murmur Lungs:Decr BS at bases MSK: no spine or BL knee tenderness; diffuse LE edema; Right foot wrapped Abd:+BS NTND soft Laboratory Results - last 24 hr 11/05/18 11/07/18 11/07/18 06:47 11:51 17:12 WBC RBC Hgb Hct MCV MCH MCHC RDW Plt Count MPV INR (Anticoag Therapy) APTT Sodium Potassium Chloride Carbon Dioxide Anion Gap BUN Creatinine Est GFR ( Amer) Est GFR (Non-Af Amer) BUN/Creatinine Ratio Glucose POC Glucose (mg/dL) 192 H 200 H Calcium Ionized Calcium Phosphorus Magnesium Total Bilirubin AST ALT Alkaline Phosphatase Total Protein Total Protein (PEP) 4.3 L Albumin Albumin (PEP) 1.1 L Globulin Albumin/Globulin Ratio Albumin/Globulin (PEP) 0.35 Jzbah-5-Hqgznvbiw 0.3 Qflfg-1-Yjdbyiybh 0.7 Lprl-0-Qivuxfzm 0.5 L Gamma Globulins 1.7 H M-Ilir Not Reportable M-Ilir 2 Not Reportable PEP Impression See comment Urine Collection Time Urine Total Volume Ur Creatinine 24 Hour Ur Creatinine Concen Ur Total Protein Conc Ur Total Protein 24 Hr 11/07/18 11/07/18 11/08/18 20:32 22:00 05:55 WBC RBC Hgb Hct MCV MCH MCHC RDW Plt Count MPV INR (Anticoag Therapy) 1.50 H APTT 65.7 H Sodium Potassium Chloride Carbon Dioxide Anion Gap BUN Creatinine Est GFR ( Amer) Est GFR (Non-Af Amer) BUN/Creatinine Ratio Glucose POC Glucose (mg/dL) 202 H Calcium Ionized Calcium Phosphorus Magnesium Total Bilirubin AST ALT Alkaline Phosphatase Total Protein Total Protein (PEP) Albumin Albumin (PEP) Globulin Albumin/Globulin Ratio Albumin/Globulin (PEP) Pvawa-9-Xcbjzvrqm Sltgs-3-Yijmnancp Kgsh-6-Ykjfbuzh Gamma Globulins M-Ilir M-Ilir 2 PEP Impression Urine Collection Time 24 Urine Total Volume 100 Ur Creatinine 24 Hour 148.04 L D Ur Creatinine Concen 148.04 Ur Total Protein Conc 139 Ur Total Protein 24 Hr 139 11/08/18 11/08/18 11/08/18 05:55 05:55 05:55 WBC 6.8 RBC 2.72 L Hgb 8.5 L Hct 25 L MCV 93 MCH 31 MCHC 34 RDW 18 H Plt Count 118 L MPV 8.8 INR (Anticoag Therapy) APTT Sodium 135 Potassium 4.8 Chloride 108 Carbon Dioxide 18 L Anion Gap 9 BUN 74 H Creatinine 2.49 H Est GFR ( Amer) 22.9 Est GFR (Non-Af Amer) 19.0 BUN/Creatinine Ratio 29.7 H Glucose 82 POC Glucose (mg/dL) Calcium 8.1 L Ionized Calcium 1.10 L Phosphorus 5.4 H Magnesium 1.9 Total Bilirubin 0.80 AST 26 ALT 8 Alkaline Phosphatase 444 H Total Protein 5.9 L Total Protein (PEP) Albumin 2.6 L Albumin (PEP) Globulin 3.3 Albumin/Globulin Ratio 0.8 L Albumin/Globulin (PEP) Cfsnu-7-Ntyhdcoow Yjfet-8-Uksactslk Vdbg-5-Kqnoybeo Gamma Globulins M-Ilir M-Ilir 2 PEP Impression Urine Collection Time Urine Total Volume Ur Creatinine 24 Hour Ur Creatinine Concen Ur Total Protein Conc Ur Total Protein 24 Hr Assessment: 1. Grp C Strep bacteremia due to right great toe cellulitis and acute osteomyelitis; 2. Presence of knee replacements which are not inflamed on exam 3. Diabetes with neuropathy 4. KELBY Plan: 1. Continue ceftriaxone 2 gm IV daily and flagyl 500 mg po tid which she is tolerating, WBC improving.
[2018-11-08] MEDS ORDERED: cefTRIAXone(*) 2 GM in NS 0.9% 100 ML* 100 ML IVPB SCH (11:00)
[2018-11-08] MEDS: Acetaminophen TAB* 325 MG PO PRN ×2 (12:30→21:53)
--- NOTE | 2018-11-08 14:38 | PN ---
Progress Note - Progress Note Date of Service: 11/08/18 SOAP: Subjective: []Pt seen at bedside. She feels better today, no pain of her right foot. Denies feeling of fever or chills. Objective: []Gen: NAD, RLE: Dressing is CDI. Able to wiggle exposed toes, sensation intact to light touch and Cap refill less than two seconds distally in exposed toes. Bilateral lower legs edematous with erythema knee to ankle and multiple scattered scabbed over wounds. Assessment: [] POD 3 sp R great toe amputation Plan: []Heel WB RLE Continue abx per ID : currently on ceftriaxone and flagyl Heparin sq DVT prophy Dressings to be kept CDI Vital Signs Temp 98.4 F 11/08/18 12:00 Pulse 77 11/08/18 14:01 Resp 19 11/08/18 14:01 BP 134/66 11/08/18 14:01 Pulse Ox 97 11/08/18 14:01 Intake & Output 11/07/18 11/08/18 11/08/18 18:59 06:59 18:59 Intake Total 602 439 697 Output Total 75 97 181 Balance 527 342 516 Weight 214 lb 11.684 oz Intake: IV Fluids 109 199 62 Albumin 65 NS (0.9%) 109 134 ceftrixone 62 IVPB 220 98 Albumin 93 ceftrixone 127 98 Medicated IV 38 CC - Norepinephrine/ 38 Levophed Oral 235 240 537 Output: Barber 75 97 181 Laboratory Last Values WBC 6.8 10^3/uL (3.5-10.8) 11/08/18 05:55 RBC 2.72 10^6 /uL (3.70-4.87) L 11/08/18 05:55 Hgb 8.5 g/dL (12.0-16.0) L 11/08/18 05:55 Hct 25 % (35-47) L 11/08/18 05:55 MCV 93 fL (80-97) 11/08/18 05:55 MCH 31 pg (27-31) 11/08/18 05:55 MCHC 34 g/dL (31-36) 11/08/18 05:55 RDW 18 % (10-15) H 11/08/18 05:55 Plt Count 118 10^3/uL (150-450) L 11/08/18 05:55 MPV 8.8 fL (7.4-10.4) 11/08/18 05:55 Neut % (Auto) 82.3 % 11/06/18 05:26 Lymph % (Auto) 9.5 % 11/06/18 05:26 [place] % (Auto) 5.4 % 11/06/18 05:26 Eos % (Auto) 2.0 % 11/06/18 05:26 Baso % (Auto) 0.8 % 11/06/18 05:26 Absolute Neuts (auto) 16.7 10^3/ul (1.5-7.7) H 11/06/18 05:26 Absolute Lymphs (auto) 1.9 10^3/ul (1.0-4.8) 11/06/18 05:26 Absolute Monos (auto) 1.1 10^3/ul (0-0.8) H 11/06/18 05:26 Absolute Eos (auto) 0.4 10^3/ul (0-0.6) 11/06/18 05:26 Absolute Basos (auto) 0.2 10^3/ul (0-0.2) 11/06/18 05:26 Absolute Nucleated RBC 0.0 10^3/ul 11/06/18 05:26 Nucleated RBC % 0.0 11/06/18 05:26 Eosinophil Smear None seen 11/06/18 22:50 INR (Anticoag Therapy) 1.50 (0.82-1.09) H 11/08/18 05:55 APTT 65.7 seconds (26.0-38.0) H 11/08/18 05:55 Patient Temperature Not Reportable 11/06/18 15:40 ABG pH 7.36 (7.35-7.45) 11/06/18 15:40 ABG pH (Temp Correct) Not Reportable 11/06/18 15:40 ABG pCO2 31 mmHg (35-45) L 11/06/18 15:40 ABG pCO2 (Temp Corrct Not Reportable 11/06/18 15:40 ABG pO2 121 mmHg (80-100) H 11/06/18 15:40 ABG pO2 (Temp Correct Not Reportable 11/06/18 15:40 ABG HCO3 19.6 mmol/L (19-31) 11/06/18 15:40 ABG O2 Saturation 99.9 % (94.0-98.0) H 11/06/18 15:40 ABG Base Excess -6.8 mmol/L (-2.0-2.0) L 11/06/18 15:40 Respiration Rate Not Reportable 11/06/18 15:40 O2 Delivery Device nasal cannula 2lpm 11/06/18 15:40 Ventilator Type Not Reportable 11/06/18 15:40 Vent Mode Not Reportable 11/06/18 15:40 FiO2 Not Reportable 11/06/18 15:40 Inspiratory Time Not Reportable 11/06/18 15:40 PEEP Not Reportable 11/06/18 15:40 Pressure Support Not Reportable 11/06/18 15:40 Pressure Control Not Reportable 11/06/18 15:40 EPAP Not Reportable 11/06/18 15:40 IPAP Not Reportable 11/06/18 15:40 BiPAP Not Reportable 11/06/18 15:40 Sodium 135 mmol/L (135-145) 11/08/18 05:55 Potassium 4.8 mmol/L (3.5-5.0) 11/08/18 05:55 Chloride 108 mmol/L (101-111) 11/08/18 05:55 Carbon Dioxide 18 mmol/L (22-32) L 11/08/18 05:55 Anion Gap 9 mmol/L (2-11) 11/08/18 05:55 BUN 74 mg/dL (6-24) H 11/08/18 05:55 Creatinine 2.49 mg/dL (0.51-0.95) H 11/08/18 05:55 Est GFR ( Amer) 22.9 (>60) 11/08/18 05:55 Est GFR (Non-Af Amer) 19.0 (>60) 11/08/18 05:55 BUN/Creatinine Ratio 29.7 (8-20) H 11/08/18 05:55 Glucose 82 mg/dL (70-100) 11/08/18 05:55 POC Glucose (mg/dL) 130 mg/dL (70-100) H 11/08/18 12:24 Hemoglobin A1c 6.8 % (4.0-5.6) H 11/01/18 03:39 Lactic Acid 1.3 mmol/L (0.5-2.0) 11/07/18 04:39 Calcium 8.1 mg/dL (8.6-10.3) L 11/08/18 05:55 Ionized Calcium 1.10 mmol/L (1.16-1.32) L 11/08/18 05:55 Phosphorus 5.4 mg/dL (2.5-5.0) H 11/08/18 05:55 Magnesium 1.9 mg/dL (1.9-2.7) 11/08/18 05:55 Iron < 17 ug/dL (50-212) L 11/01/18 00:46 TIBC 155 mcg/dL (250-450) L 11/01/18 00:46 % Saturation 11 % (15-55) L 11/01/18 00:46 Unsat Iron Binding < 140 ug/dL 11/01/18 00:46 Transferrin < 75 mg/dL (203-362) L 11/06/18 20:28 Total Bilirubin 0.80 mg/dL (0.2-1.0) 11/08/18 05:55 Direct Bilirubin 0.50 mg/dL (0.03-0.18) H 11/06/18 05:26 Indirect Bilirubin 0.3 mg/dL (0.3-1.0) 11/06/18 05:26 AST 26 U/L (13-39) 11/08/18 05:55 ALT 8 U/L (7-52) 11/08/18 05:55 Alkaline Phosphatase 444 U/L (34-104) H 11/08/18 05:55 Ammonia 37 mcmol/L (16-53) 11/06/18 20:28 Troponin I 0.18 ng/mL (<0.04) H* 11/01/18 11:22 C-Reactive Protein 98.07 mg/L (<8.01) H 11/04/18 14:26 B-Natriuretic Peptide 1289 pg/mL (<=100) H 11/07/18 04:39 Total Protein 5.9 g/dL (6.4-8.9) L 11/08/18 05:55 Total Protein (PEP) 4.3 g/dL (6.3 - 7.9) L 11/05/18 06:47 Albumin 2.6 g/dL (3.2-5.2) L 11/08/18 05:55 Albumin (PEP) 1.1 g/dL (3.4-4.7) L 11/05/18 06:47 Globulin 3.3 g/dL (2-4) 11/08/18 05:55 Albumin/Globulin Ratio 0.8 (1-3) L 11/08/18 05:55 Albumin/Globulin (PEP) 0.35 11/05/18 06:47 Prealbumin < 3 mg/dL (18-38) L 11/04/18 03:24 Fcrfv-3-Lkcvbodtc 0.3 g/dL (0.1-0.3) 11/05/18 06:47 Wxszk-4-Tkjwtmkxe 0.7 g/dL (0.6-1.0) 11/05/18 06:47 Iych-1-Bodovawc 0.5 g/dL (0.7-1.2) L 11/05/18 06:47 Gamma Globulins 1.7 g/dL (0.6-1.6) H 11/05/18 06:47 M-Ilir Not Reportable 11/05/18 06:47 M-Ilir 2 Not Reportable 11/05/18 06:47 PEP Impression See comment 11/05/18 06:47 Vitamin B12 > 1450 pg/mL (180-914) H 11/01/18 00:46 Folate > 20.00 ng/mL (>3.99) 11/01/18 00:46 Urine Color [place] 11/03/18 17:20 Urine Appearance Turbid 11/03/18 17:20 Urine pH 5.0 (5-9) 11/03/18 17:20 Ur Specific [place] 1.017 (1.010-1.030) 11/03/18 17:20 Urine Protein 2+(100 mg/dl) (Negative) A 11/03/18 17:20 Urine Ketones Negative (Negative) 11/03/18 17:20 Urine Blood Negative (Negative) 11/03/18 17:20 Urine Nitrate Negative (Negative) 11/03/18 17:20 Urine Bilirubin Negative (Negative) 11/03/18 17:20 Urine Urobilinogen Negative (Negative) 11/03/18 17:20 Ur Leukocyte Esterase Negative (Negative) 11/03/18 17:20 Urine WBC (Auto) 1+(6-10/hpf) (Absent) A 11/03/18 17:20 Urine RBC (Auto) Trace(0-2/hpf) (Absent) 11/03/18 17:20 Ur Squamous Epith Cells Present (Absent) A 11/03/18 17:20 Urine Bacteria Absent (Absent) 11/03/18 17:20 Urine Yeast Present (Absent) A 11/01/18 02:18 Urine Collection Time 24 hr 11/07/18 22:00 Urine Total Volume 100 mL 11/07/18 22:00 Ur Creatinine 24 Hour 148.04 mg/24Hr (600-1800) L D 11/07/18 22:00 Ur Creatinine Concen 148.04 mg/dL 11/07/18 22:00 Ur Total Protein Conc 139 mg/dL 11/07/18 22:00 Ur Total Protein 24 Hr 139 mg/24Hr (0-165) 11/07/18 22:00 Ur Urea Nitrogen Conc 181 mg/dL 11/06/18 22:50 Urine Glucose Negative (Negative) 11/03/18 17:20 Vancomycin Trough 20.5 mcg/mL 11/04/18 03:24 [place] Light Chain 32.0 mg/dL H 11/05/18 06:47 Lambda Light Chain 18.6 mg/dL H 11/05/18 06:47 [place]/Lambda Ratio 1.72 H 11/05/18 06:47 Blood Type A Positive 11/01/18 03:12 Antibody Screen Negative 11/01/18 03:12 Crossmatch See Detail 11/01/18 03:12
[2018-11-08] MEDS ORDERED: Artificial Tears* 15 ML BTL BOTH EYES PRN ×2 (19:25→22:24)
[2018-11-09] MEDS ORDERED: Dextran 70/Hypromellose Tears Eye Drops 15 ml BTL (for Artificials Tears) BOTH EYES PRN (03:00)
[2018-11-09] MEDS: Norepinephrine VIAL 8 MG in NS 0.9% 500 ML IV SCH (05:16)
[2018-11-09] MEDS: Heparin VIAL(*) 5000 UNITS/ML VIAL (FIVE THOUSAND) SUBCUT SCH ×3 (05:32→20:27)
[2018-11-09 05:54] LABS: Hematocrit 30 % (35-47); Hemoglobin 9.9 g/dL (12.0-16.0); Mean Corpuscular HGB Conc 33 g/dL (31-36); Mean Corpuscular Hemoglobin 31 pg (27-31); Mean Corpuscular Volume 93 fL (80-97); Mean Platelet Volume 9.7 fL (7.4-10.4); Platelet Count 129 10^3/uL (150-450); Red Blood Count 3.21 10^6 /uL (3.70-4.87); Red Cell Distribution Width 18 % (10-15); White Blood Count 7.2 10^3/uL (3.5-10.8)
[2018-11-09 06:17] LABS: Albumin 2.4 g/dL (3.2-5.2); Albumin/Globulin Ratio 0.6 (1-3); Calcium 8.5 mg/dL (8.6-10.3); EGFR African American 22.8 (>60); EGFR Non-African American 18.9 (>60); Globulin 3.8 g/dL (2-4); Magnesium 1.9 mg/dL (1.9-2.7); Phosphorus 5.5 mg/dL (2.5-5.0); Potassium 4.9 mmol/L (3.5-5.0); Total Bilirubin 0.7 mg/dL (0.2-1.0); Total Protein 6.2 g/dL (6.4-8.9)
--- NOTE | 2018-11-09 09:24 | PN ---
Progress Note - Progress Note Date of Service: 11/09/18 SOAP: Subjective: []Patient seen at bedside , feeling well, offers no complaints of right foot pain when asked. Denies knee pain. Objective: [] Vital Signs Temp 97.2 F 11/09/18 03:32 Pulse 66 11/09/18 06:01 Resp 17 11/09/18 06:01 BP 145/67 11/09/18 06:01 Pulse Ox 94 11/09/18 06:01 Intake & Output 11/08/18 11/09/18 11/09/18 18:59 06:59 18:59 Intake Total 697 220 Output Total 296 412 Balance 401 -192 Weight 220 lb 7.396 oz Intake: IV Fluids 62 ceftrixone 62 IVPB 98 ceftrixone 98 Oral 537 220 Output: Barber 296 412 Other: Date of Last Bowel 11/09/18 Movement # Bowel Movements 1 Estimated Stool Amount Small Laboratory Results - last 24 hr 11/08/18 11/08/18 11/08/18 12:24 17:05 21:10 WBC RBC Hgb Hct MCV MCH MCHC RDW Plt Count MPV Sodium Potassium Chloride Carbon Dioxide Anion Gap BUN Creatinine Est GFR ( Amer) Est GFR (Non-Af Amer) BUN/Creatinine Ratio Glucose POC Glucose (mg/dL) 130 H 205 H 193 H Calcium Ionized Calcium Phosphorus Magnesium Total Bilirubin AST ALT Alkaline Phosphatase B-Natriuretic Peptide Total Protein Albumin Globulin Albumin/Globulin Ratio Vancomycin Trough 11/09/18 11/09/18 11/09/18 05:35 05:35 05:35 WBC RBC Hgb Hct MCV MCH MCHC RDW Plt Count MPV Sodium 133 L Potassium 4.9 Chloride 108 Carbon Dioxide 17 L Anion Gap 8 BUN 70 H Creatinine 2.50 H Est GFR ( Amer) 22.8 Est GFR (Non-Af Amer) 18.9 BUN/Creatinine Ratio 28.0 H Glucose 119 H POC Glucose (mg/dL) Calcium 8.5 L Ionized Calcium Phosphorus 5.5 H Magnesium 1.9 Total Bilirubin 0.70 AST 27 ALT 9 Alkaline Phosphatase 482 H B-Natriuretic Peptide > 1300 H Total Protein 6.2 L Albumin 2.4 L Globulin 3.8 Albumin/Globulin Ratio 0.6 L Vancomycin Trough 15.3 11/09/18 11/09/18 05:35 05:35 WBC 7.2 RBC 3.21 L Hgb 9.9 L Hct 30 L MCV 93 MCH 31 MCHC 33 RDW 18 H Plt Count 129 L MPV 9.7 Sodium Potassium Chloride Carbon Dioxide Anion Gap BUN Creatinine Est GFR ( Amer) Est GFR (Non-Af Amer) BUN/Creatinine Ratio Glucose POC Glucose (mg/dL) Calcium Ionized Calcium 1.14 L Phosphorus Magnesium Total Bilirubin AST ALT Alkaline Phosphatase B-Natriuretic Peptide Total Protein Albumin Globulin Albumin/Globulin Ratio Vancomycin Trough Microbiology 10/31/18 19:45 Aerobic Blood Culture - Final Blood Venous Strep Dysgalactiae (Grp C) Anaerobic Blood Culture - Final No Growth Day 5 11/04/18 15:30 Stool Culture - Final Stool Stool Gross Appearance - Final Shiga Toxin I & II - Final Negative Shiga Toxin 1 & 2 Stool Occult Blood (IKE) - Final 11/01/18 03:12 Aerobic Blood Culture - Final Blood Venous Not Reportable Anaerobic Blood Culture - Final Not Reportable Blood Culture - Final No Growth Day 5 11/01/18 00:46 Aerobic Blood Culture - Final Blood Venous Not Reportable Anaerobic Blood Culture - Final Not Reportable Blood Culture - Final No Growth Day 5 11/03/18 17:20 Urine Culture - Final Urine No Growth (<1,000 CFU/mL) 11/01/18 02:18 Urine Culture - Final Urine No Growth (<1,000 CFU/mL) 11/01/18 04:05 Nasal Screen MRSA (PCR) - Final Nasal Mrsa Detected O: Dressing is CDI. Able to wiggle exposed toes, sensation intact to light touch and Cap refill less than two seconds distally in exposed toes. Bilateral lower legs edematous with erythema knee to ankle and multiple scattered scabbed over wounds. No knee tenderness bilaterally. Assessment: []POD #4 right great toe ampuatation -Osteo Plan: []Heel WB RLE Continue abx per ID : currently on ceftriaxone and flagyl Heparin sq DVT prophy Dressings to be kept CDI
[2018-11-09] MEDS: Calcium Carbonate CHEW TAB* 500 MG (TUMS) PO SCH ×2 (09:56→20:26)
[2018-11-09] MEDS: Insulin LISPRO* 1 UNITS UNIT SUBCUT SCH ×4 (09:57→21:09)
[2018-11-09] MEDS: Gabapentin CAP(*) 100 MG PO SCH (09:57)
[2018-11-09] MEDS: Atorvastatin* 80 MG TAB PO SCH (09:57)
[2018-11-09] MEDS: Cholecalciferol TAB* 400 UNIT PO SCH (09:57)
[2018-11-09] MEDS: Aspirin EC TAB* 81 MG TAB.EC PO SCH (09:57)
[2018-11-09] MEDS: metroNIDAZOLE TAB* 250 MG PO SCH ×3 (09:57→20:27)
[2018-11-09] MEDS: Nystatin TOP POWDER* 15 GM BTL TOPICAL SCH ×4 (09:58→20:27)
[2018-11-09] MEDS: Acetaminophen TAB* 325 MG PO PRN (10:19)
[2018-11-09] MEDS: cefTRIAXone* 1 GM in NS 0.9% 50 ML BAG IVPB SCH (11:39)
[2018-11-09 13:23] LABS: Albumin 31 %; Albumin/Globulin Ratio 0.46 %; Gamma Globulin 33 %; Total Protein(PEP) Urine 162 mg/dL
--- NOTE | 2018-11-09 14:41 | PN ---
Date of Service: 11/09/18 - HD 9 Critical Care Services: 73 yo F with PMH which includes DM, HTN, CAD with previous CABG, CVA, lymphedema and chronic pain. She presented to the ED on 11/01 from [place] with complaints of right leg wounds, pain and redness. She was seen 2 days prior at wound clinic in [place]. Also reports, fever, chills, fatigue and diarrhea. Per patient she has been on outpatient antibiotics. On evaluation she was noted to be tachycardic to 102. Otherwise afebrile with stable vital signs. Physical exam notable for bilateral lower extremity edema , deep ulcer on plantar aspect of right great toe with some granulation tissue and is not malodorous, a little bit of bleeding of edges of the ulcer. Exam otherwise benign. WBC 9.9. Creatinine elevated at 1.40. Admitted to the hospitalist service for cellulitis and sepsis. Orthopedics consulted. Started on Vancomycin and Zosyn for broad spectrum coverage. IVF hydration for sepsis and KELBY. H&H dropped over the course of the day and transfused 2U PRBC. Lactic acid only 1.9. Notified by [facility] that their blood cultures are growing gram positive cocci in chains in 2 bottles. 11/02: TTE report with LVEF 55-60%, normal wall motion, no vegitation. 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 11/04: Blood cultures from [place] with Strep, sensitive to ceftriaxone (report on chart). ABx narrowed to Ceftriaxone. 11/05: Went to OR with Orthopedics for right great toe amputation. Poor urine output. Hypotensive to 80s but asymptomatic. Repeat blood cultures NGTD. ID consulted. Creatinine bumped to 2.16, IVF hydration restarted. 11/06: Increased lethargy, reporting pain of right leg. BPs remain soft with systolics mid 90s. Nephrology consulted for acute kidney injury. Transferred to ICU for further resuscitation and support 11/07: Overnight developed worsened oliguria unresponsive to IVF boluses and Lasix. Started on low dose levophed for hypotension. Seen by nephrology; does not yet meet criteria for HD 11/08: No overnight events. Perked up considerably after learning her daughter was coming into town to visit her. 11/09: Increasing urine output Vital Signs: Temp Pulse Resp BP SpO2 FiO2 97.9 F 72 15 142/57 98 11/09/18 09:45 11/09/18 14:00 11/09/18 14:00 11/09/18 14:00 11/09/18 14:00 Physical Exam: Gen: alert, sitting up in bed conversing with family HEENT: moist mucus membranes Lungs: CTAB Cardiac: RRR Abdomen: soft, nontender Extremities: stable edema. wounds dressed Neuro: alert, conversant Fluid Balance (Past 24 Hours): I= O= Net Intake & Output 11/07/18 11/08/18 11/09/18 11/10/18 06:59 06:59 06:59 06:59 Intake Total 4463 1041 917 377 Output Total 159 172 708 265 Balance 4304 869 209 112 Weight 214 lb 11.684 oz 220 lb 7.396 oz Intake: IV Fluids 3343 308 62 77 Albumin 666 65 NS (0.9%) 2677 243 Zosyn 0 ceftrixone 0 62 77 IVPB 220 98 Albumin 93 ceftrixone 127 98 Medicated IV 38 CC - Norepinephrine/ 38 Levophed Oral 1120 475 757 300 Output: Urine 0 Barber 159 172 708 265 Other: Date of Last Bowel 11/09/18 Movement # Bowel Movements 1 Estimated Stool Amount Small Labs: Laboratory Results - last 24 hr 11/04/18 11/05/18 11/08/18 17:45 06:47 17:05 WBC RBC Hgb Hct MCV MCH MCHC RDW Plt Count MPV Sodium Potassium Chloride Carbon Dioxide Anion Gap BUN Creatinine Est GFR ( Amer) Est GFR (Non-Af Amer) BUN/Creatinine Ratio Glucose POC Glucose (mg/dL) 205 H Calcium Ionized Calcium Phosphorus Magnesium Total Bilirubin AST ALT Alkaline Phosphatase B-Natriuretic Peptide Total Protein Albumin Globulin Albumin/Globulin Ratio PEP Impression See comment Ur Random Albumin % 31 U Random Total Protein 162 Ur Albumin/Globulin 0.46 U Random s-2-Stvdvqqi % 5 U Random s-8-Ymopijgh % 9 U Random b-Globulin % 22 U Random Gamma Glob % 33 Vancomycin Trough Serum Immunofixation See comment 11/08/18 11/09/18 11/09/18 21:10 05:35 05:35 WBC RBC Hgb Hct MCV MCH MCHC RDW Plt Count MPV Sodium 133 L Potassium 4.9 Chloride 108 Carbon Dioxide 17 L Anion Gap 8 BUN 70 H Creatinine 2.50 H Est GFR ( Amer) 22.8 Est GFR (Non-Af Amer) 18.9 BUN/Creatinine Ratio 28.0 H Glucose 119 H POC Glucose (mg/dL) 193 H Calcium 8.5 L Ionized Calcium Phosphorus 5.5 H Magnesium 1.9 Total Bilirubin 0.70 AST 27 ALT 9 Alkaline Phosphatase 482 H B-Natriuretic Peptide Total Protein 6.2 L Albumin 2.4 L Globulin 3.8 Albumin/Globulin Ratio 0.6 L PEP Impression Ur Random Albumin % U Random Total Protein Ur Albumin/Globulin U Random i-5-Ssweempq % U Random d-4-Plfmsvsw % U Random b-Globulin % U Random Gamma Glob % Vancomycin Trough 15.3 Serum Immunofixation 11/09/18 11/09/18 11/09/18 05:35 05:35 05:35 WBC 7.2 RBC 3.21 L Hgb 9.9 L Hct 30 L MCV 93 MCH 31 MCHC 33 RDW 18 H Plt Count 129 L MPV 9.7 Sodium Potassium Chloride Carbon Dioxide Anion Gap BUN Creatinine Est GFR ( Amer) Est GFR (Non-Af Amer) BUN/Creatinine Ratio Glucose POC Glucose (mg/dL) Calcium Ionized Calcium 1.14 L Phosphorus Magnesium Total Bilirubin AST ALT Alkaline Phosphatase B-Natriuretic Peptide > 1300 H Total Protein Albumin Globulin Albumin/Globulin Ratio PEP Impression Ur Random Albumin % U Random Total Protein Ur Albumin/Globulin U Random f-9-Qobowaen % U Random w-2-Tgkiittw % U Random b-Globulin % U Random Gamma Glob % Vancomycin Trough Serum Immunofixation 11/09/18 11:29 WBC RBC Hgb Hct MCV MCH MCHC RDW Plt Count MPV Sodium Potassium Chloride Carbon Dioxide Anion Gap BUN Creatinine Est GFR ( Amer) Est GFR (Non-Af Amer) BUN/Creatinine Ratio Glucose POC Glucose (mg/dL) 181 H Calcium Ionized Calcium Phosphorus Magnesium Total Bilirubin AST ALT Alkaline Phosphatase B-Natriuretic Peptide Total Protein Albumin Globulin Albumin/Globulin Ratio PEP Impression Ur Random Albumin % U Random Total Protein Ur Albumin/Globulin U Random m-1-Wqugoyzk % U Random p-0-Bhaqjnzq % U Random b-Globulin % U Random Gamma Glob % Vancomycin Trough Serum Immunofixation Studies: 11/06 US liver - gallbladder sludge 11/06 CT chest and abdomen - bilateral pleural effusions. subsegmental atelectasis, ground glass opacities. No retroperitoneal mass identified. RLQ SQ hematoma. 11/06 US renal - Retroperitoneal structure noted. CT recommended. Unremarkable exam of kidneys. 11/02 MR right leg - osteomyelitis of distal phalynx of great toe 11/01 XR right foot - no definite osteopenia. Multiple areas of degenerative joint disease noted. 11/01 CXR - pulmonary vascular congestion Nutrition: diabetic diet with supplementary glucerna Impression: 73 yo F with PMH including CAD, CVA, DM presented with bilateral lower extremity cellulitis, right great toe osteomyelitis and sepsis on 11/01/2018. She was treated with broad spectrum antibiotics and underwent right great toe amputation on 11/05/2018. Transferred to ICU on 11/06/2018 for SIRS response, hypotension and oliguria. Sepsis now resolving and urine output improving. Plan: Cardiovascular: (1) Septic shock, resolved; (2) Afib, rate controlled; (3) Chronic hypertension; (4) elevated troponin on admission; (5) CAD with history of CABG; (6) Bilateral lower extremity lymphedema -- HR 56-101 -- SBP 123-166 -- Telemetry -- TTE, 11/02: LVEF 55-60%, normal wall motion. -- BNP >1300 from 1289 -- ASA -- Atorvastatin -- albumin as needed for hypotension Home meds: Amlodipine, ASA, Atorvastatin, Lasix, Lisinopril, Metolazone, Metoprolol Pulmonary: No acute issues -- RR 8-34 -- sats 94-100 on RA Home meds: None Gastrointestinal: (1) Diarrhea, possibly secondary to antibiotics; (2) Hypoalbuminemia, improving; (3) Elevated ALK -- LFTs Tbili 0.7 ALK 482 from 444, follow trend AST 27 ALT 9 -- Total protein 6.2 from 5.9, low -- Albumin 2.4 from 2.6, low -- diet: carb control with glucerna -- bowel regimen: None -- ulcer prophylaxis: Not indicated at this time -- PRN Zofran for nausea Home meds: None Endocrine: (1) Diabetes mellitus type 2 -- monitor BGs -- Sliding scale insulin Home meds: Insulin NPH Renal: (1) Acute kidney failure on chronic renal insuffiency, with oliguria, improving; (2) Hyponatremia, stable (3) Hypocalcemia; (4) Hyperphosphatemia; (5 ) Intravascular hypovolemia -- UOP: 30 ml/hr -- Cr 2.50 from 2.68 -- Lytes Na 133 from 135 from 134 K 4.9 Ca 8.5, ionized 1.14, on replacement Mag 1.9 Phos 5.5 from 5.4 -- IVF: NS @ 75 ml/hr, HL and use albumin as needed for volume given almost anuric state -- Albumin gtt per Nephrology -- Calcium carbonate -- Nephrology following; avoid diuretic use unless needed for respiratory effort given that it will delay renal recovery Home meds: Lasix, Metolazone Infectious disease: (1) Sepsis, resolved (2) Diabetic foot ulcer with osteomyelitis s/p right great toe amputation; (3) Bilateral lower extremity cellulitis, improving; (4) Community acquired pneumonia; (5) Hx of pseudomonal bacteremia -- Tmax 98.1 -- WBC 8.2 from 6.8 -- Micro 11/04 Stool no enteric pathogens 11/03 urine negative 11/01 MRSA screen Positive blood negative urine negative 10/31 Blood-fatuma Strep Dysgalactiae (grp C) -- ABX Rocephin Flagyl Home meds: None Neurologic: (1) Diabetic neuropathy; (2) Chronic pain; (3) hx of stroke -- PRN Tylenol -- Gabapentin -- Methadone Home meds: Gabapentin, Methadone Hematological: (1) Chronic anemia; (2) Mild thrombocytopenia -- Hgb 9.9 from 8.5 -- Plt 129 from 118 -- DVT prophylaxis: SQ Heparin -- ASA Home meds: ASA Metabolic: No acute issues Home meds: None Other: No acute issues -- Cholecalciferol -- pathology pending. Home meds: Cholecalciferol, Vitamin B12 Deep vein thrombosis prophylaxis: SQ Heparin Dietary: Not indicated at this time Condition: stable Prognosis: guarded Code status: full Disposition: transfer to floor Cumulative time spent in the care of this patient (excluding any procedure time) : at least 30 minutes. Patient care included clinical interview (with patient and/or family), bedside exam of the patient, review of labs, x-rays, and other ancillary data, coordination of (respiratory, nursing care, review of patient's records, discussion regarding patients management with involved consultants, primary physician, pharmacists, and other healthcare personnel (dietary, case management , physical/occupational therapy etc.)
[2018-11-09] MEDS: Methadone TAB* 5 MG PO PRN (20:26)
[2018-11-10 04:52] LABS: Hematocrit 27 % (35-47); Hemoglobin 9.1 g/dL (12.0-16.0); Mean Corpuscular HGB Conc 34 g/dL (31-36); Mean Corpuscular Hemoglobin 31 pg (27-31); Mean Corpuscular Volume 93 fL (80-97); Mean Platelet Volume 9.3 fL (7.4-10.4); Platelet Count 137 10^3/uL (150-450); Red Blood Count 2.92 10^6 /uL (3.70-4.87); Red Cell Distribution Width 17 % (10-15); White Blood Count 7.1 10^3/uL (3.5-10.8)
[2018-11-10] MEDS: Heparin VIAL(*) 5000 UNITS/ML VIAL (FIVE THOUSAND) SUBCUT SCH ×3 (05:11→22:50)
[2018-11-10 05:12] LABS: ALT 8 U/L (7-52); Albumin 1.9 g/dL (3.2-5.2); Albumin/Globulin Ratio 0.5 (1-3); Alkaline Phosphatase 370 U/L (34-104); BUN/Creatinine Ratio 30.5 (8-20); Blood Urea Nitrogen 64 mg/dL (6-24); CO2 Carbon Dioxide 18 mmol/L (22-32); Calcium 7.7 mg/dL (8.6-10.3); Chloride 110 mmol/L (101-111); EGFR African American 27.9 (>60); EGFR Non-African American 23.1 (>60); Globulin 3.7 g/dL (2-4); Glucose 123 mg/dL (70-100); Phosphorus 5.3 mg/dL (2.5-5.0); Sodium 132 mmol/L (135-145); Total Protein 5.6 g/dL (6.4-8.9)
[2018-11-10 05:20] LABS: Anion Gap 4 mmol/L (2-11)
[2018-11-10 06:21] LABS: Magnesium 1.9 mg/dL (1.9-2.7)
--- NOTE | 2018-11-10 08:30 | PN ---
Subjective Date of Service: 11/10/18 Interval History: Transferred from ICU yesterday. Admitted for sepsis, in setting of diabetic foot ulcer, status post amputation R. great toe 11/05, on IV antibiotics. This morning reports no complaints, no chest pain, no trouble breathing. Feels her legs are "puffy" Family History: Unchanged from Admission Social History: Unchanged from Admission Past Medical History: Unchanged from Admission Objective Active Medications: Acetaminophen (Tylenol Tab*) 650 mg PO Q4H PRN PRN Reason: FEVER/PAIN Last Admin: 11/09/18 10:19 Dose: 650 mg Artificial Tears (Natural Balance Tears Eye Drop) 1 drop BOTH EYES Q4H PRN PRN Reason: DRY EYES Aspirin (Aspirin Ec Tab*) 81 mg PO DAILY [facility] Last Admin: 11/09/18 09:57 Dose: 81 mg Atorvastatin Calcium (Lipitor*) 80 mg PO DAILY [facility] Last Admin: 11/09/18 09:57 Dose: 80 mg Calcium Carbonate (Tums*) 500 mg PO BID [facility] Last Admin: 11/09/18 20:26 Dose: Not Given Cholecalciferol (Vitamin D Tab*) 400 unit PO DAILY [facility] Last Admin: 11/09/18 09:57 Dose: 400 unit Dextrose (D50w Syringe 50 Ml*) 12.5 gm IV PUSH .FOR FS < 60 - SS PRN PRN Reason: FS < 60 Gabapentin (Neurontin Cap(*)) 100 mg PO DAILY [facility] Last Admin: 11/09/18 09:57 Dose: 100 mg Heparin Sodium (Porcine) (Heparin Vial(*)) 5,000 units SUBCUT Q8HR [facility] Last Admin: 11/10/18 05:11 Dose: 5,000 units Ceftriaxone Sodium 1 gm/ (Sodium Chloride) 50 mls @ 200 mls/hr IVPB Q24H [facility] Last Admin: 11/09/18 11:39 Dose: 200 mls/hr Insulin Human Lispro (Humalog*) 0 units SUBCUT ACHS [facility]; Protocol Last Admin: 11/09/18 21:09 Dose: 6 units Methadone HCl (Dolophine Tab*) 2.5 mg PO Q6H PRN PRN Reason: PAIN Last Admin: 11/09/18 20:26 Dose: 2.5 mg Metronidazole (Flagyl Tab*) 500 mg PO TID [facility] Last Admin: 11/09/18 20:27 Dose: 500 mg Nystatin (Nystatin Top Powder*) 1 applic TOPICAL TID [facility] Last Admin: 11/09/18 20:27 Dose: 1 applic Ondansetron HCl (Zofran Inj*) 4 mg IV Q6H PRN PRN Reason: NAUSEA Vital Signs - 8 hr 11/10/18 04:43 Temperature 98.1 F Pulse Rate 86 Respiratory 18 Rate Blood Pressure 129/43 (mmHg) O2 Sat by Pulse 98 Oximetry Oxygen Devices in Use Now: Nasal Cannula Appearance: Elderly female sitting on bed, eating breakfast, not in distress. Eyes: PERRLA Ears/Nose/Mouth/Throat: Mucous Membranes Moist Respiratory: - - No tachypnea, no use of accessory muscles. mild bibasilar crackles. Cardiovascular: - - No chest wall tendernesss, regular rate rhythm. 2+ pitting edema bilateral lower extremities. Skin: - - mild erythema with swelling at bilateral lower extremities, dressing intact at the right foot. Neurological: Alert and Oriented x 3 Result Diagrams: 11/10/18 04:46 11/10/18 05:40 Additional Lab and Data: Above labs were pulled into the note when the note was edited prior to signing , see labs from day of consult below Laboratory Tests 11/04/18 11/04/18 11/06/18 03:24 14:26 05:26 WBC 20.3 H Hgb 10.4 L Hct 32 L Plt Count 153 Sodium Potassium Chloride Carbon Dioxide BUN Creatinine Glucose C-Reactive Protein 98.07 H Total Protein Albumin Prealbumin < 3 L 11/06/18 05:26 WBC Hgb Hct Plt Count Sodium 133 L Potassium 5.1 H Chloride 107 Carbon Dioxide 21 L BUN 59 H Creatinine 2.42 H Glucose 118 H C-Reactive Protein Total Protein 4.5 L Albumin < 1.5 L Prealbumin Microbiology and Other Data: Microbiology 11/04/18 15:30 Stool Culture - Final Stool Stool Gross Appearance - Final Shiga Toxin I & II - Final Negative Shiga Toxin 1 & 2 Stool Occult Blood (IKE) - Final 11/01/18 03:12 Aerobic Blood Culture - Final Blood Venous Not Reportable Anaerobic Blood Culture - Final Not Reportable Blood Culture - Final No Growth Day 5 11/01/18 00:46 Aerobic Blood Culture - Final Blood Venous Not Reportable Anaerobic Blood Culture - Final Not Reportable Blood Culture - Final No Growth Day 5 10/31/18 19:45 Aerobic Blood Culture - Final Blood Venous Strep Dysgalactiae (Grp C) Anaerobic Blood Culture - Preliminary No Growth Day 3 11/03/18 17:20 Urine Culture - Final Urine No Growth (<1,000 CFU/mL) 11/01/18 02:18 Urine Culture - Final Urine No Growth (<1,000 CFU/mL) 11/01/18 04:05 Nasal Screen MRSA (PCR) - Final Nasal Mrsa Detected Diagnostic Imaging: Exam Date: 11/02/18 1400 - MRI LOWER EXTREMITY RIGHT W/O IMPRESSION: FINDINGS MOST CONSISTENT WITH OSTEOMYELITIS INVOLVING THE DISTAL PHALANX OF THE GREAT TOE. EKG Data: . Assess/Plan/Problems-Billing Assessment: Ms. Mendes is a 73 year old female with hx of CAD/CABG, DM, HTN transferred from [facility] on 11/01/18 for sepsis. Was in ICU, Right great toe osteomyelitis status post amputation 11/05, KELBY with CKD. - Patient Problems (1) KELBY (acute kidney injury) Current Visit: Yes Status: Acute Code(s): N17.9 - ACUTE KIDNEY FAILURE, UNSPECIFIED SNOMED Code(s): 10445388 Comment: Acute kidney injury with CKD, slight improvement. tolerating oral, currently not on IV fluids, and started to have fluid overload. avoid nephrotoxins, nephro consulted this admission, decreased urinary output as well, per nephro avoid diuretics, consider albumin. (2) Cellulitis Current Visit: Yes Status: Acute Code(s): L03.90 - CELLULITIS, UNSPECIFIED SNOMED Code(s): 840539284 Comment: - Cont Ceftriaxone with addition of Flagyl per ID - Elevate legs (3) DVT prophylaxis Current Visit: Yes Status: Acute Code(s): Z29.9 - ENCOUNTER FOR PROPHYLACTIC MEASURES, UNSPECIFIED SNOMED Code(s): 777996353 Comment: Heparin subQ (4) Diabetes Current Visit: Yes Status: Acute Code(s): E11.9 - TYPE 2 DIABETES MELLITUS WITHOUT COMPLICATIONS SNOMED Code(s): 78504448 Comment: - HgbA1C 6.8 - Continue lispro sliding scale and accucheck ACHS (5) Diabetic toe ulcer Current Visit: Yes Status: Acute Code(s): E11.621 - TYPE 2 DIABETES MELLITUS WITH FOOT ULCER; L97.509 - NON-PRESSURE CHRONIC ULCER OTH PRT UNSP FOOT W UNSP SEVERITY SNOMED Code(s): 010839741 Comment: - S/P Right great toe amputation due to cellulitis and osteomyelitis on 11/05. - Cont abx - PT/OT consult ordered (6) Sepsis Current Visit: Yes Status: Acute Comment: resolved. sepsis due to right great toe osteomyelitis. continue rocephin and flagyl. (7) CAD (coronary artery disease) Current Visit: Yes Status: Acute Code(s): I25.10 - ATHSCL HEART DISEASE OF [place] CORONARY ARTERY W/O ANG PCTRS SNOMED Code(s): 92257609 Comment: History of CAD/CABG. stable, no chest pain. continue asa, statin.
[2018-11-10 08:50] LABS: Potassium Redraw 5.2 mmol/L (3.5-5.0)
[2018-11-10] MEDS: Cholecalciferol TAB* 400 UNIT PO SCH (08:59)
[2018-11-10] MEDS: Atorvastatin* 80 MG TAB PO SCH (08:59)
[2018-11-10] MEDS: Aspirin EC TAB* 81 MG TAB.EC PO SCH (08:59)
[2018-11-10] MEDS: Gabapentin CAP(*) 100 MG PO SCH (09:00)
[2018-11-10] MEDS: Insulin LISPRO* 1 UNITS UNIT SUBCUT SCH ×4 (09:00→20:59)
[2018-11-10] MEDS: metroNIDAZOLE TAB* 250 MG PO SCH ×3 (09:00→20:59)
[2018-11-10] MEDS: Nystatin TOP POWDER* 15 GM BTL TOPICAL SCH ×3 (09:01→21:13)
[2018-11-10] MEDS: Calcium Carbonate CHEW TAB* 500 MG (TUMS) PO SCH ×2 (09:01→20:59)
[2018-11-10] MEDS: Acetaminophen TAB* 325 MG PO PRN ×2 (09:03→21:13)
[2018-11-10] MEDS: cefTRIAXone* 1 GM in NS 0.9% 50 ML BAG IVPB SCH (13:58)
[2018-11-10] MEDS: Methadone TAB* 5 MG PO PRN (20:58)
[2018-11-11] MEDS: Acetaminophen TAB* 325 MG PO PRN ×4 (05:05→22:44)
[2018-11-11] MEDS: Heparin VIAL(*) 5000 UNITS/ML VIAL (FIVE THOUSAND) SUBCUT SCH ×3 (05:07→20:06)
[2018-11-11] MEDS: Methadone TAB* 5 MG PO PRN ×3 (05:45→20:05)
[2018-11-11 05:58] LABS: Hematocrit 26 % (35-47); Hemoglobin 8.8 g/dL (12.0-16.0); Mean Corpuscular HGB Conc 34 g/dL (31-36); Mean Corpuscular Hemoglobin 32 pg (27-31); Mean Corpuscular Volume 93 fL (80-97); Mean Platelet Volume 9.3 fL (7.4-10.4); Platelet Count 148 10^3/uL (150-450); Red Blood Count 2.76 10^6 /uL (3.70-4.87); Red Cell Distribution Width 17 % (10-15); White Blood Count 7.6 10^3/uL (3.5-10.8)
[2018-11-11 06:20] LABS: Albumin 1.9 g/dL (3.2-5.2); Albumin/Globulin Ratio 0.5 (1-3); BUN/Creatinine Ratio 31.9 (8-20); Calcium 7.9 mg/dL (8.6-10.3); EGFR African American 27.5 (>60); EGFR Non-African American 22.7 (>60); Globulin 4.1 g/dL (2-4); Magnesium 1.9 mg/dL (1.9-2.7); Phosphorus 5.3 mg/dL (2.5-5.0); Total Bilirubin 0.7 mg/dL (0.2-1.0)
[2018-11-11 06:21] LABS: Potassium 5.3 mmol/L (3.5-5.0)
[2018-11-11] MEDS: Insulin LISPRO* 1 UNITS UNIT SUBCUT SCH ×4 (08:10→20:16)
[2018-11-11] MEDS: Gabapentin CAP(*) 100 MG PO SCH (08:30)
[2018-11-11] MEDS: Calcium Carbonate CHEW TAB* 500 MG (TUMS) PO SCH ×3 (08:30→20:10)
[2018-11-11] MEDS: Cholecalciferol TAB* 400 UNIT PO SCH (08:31)
[2018-11-11] MEDS: metroNIDAZOLE TAB* 250 MG PO SCH ×3 (08:31→20:05)
[2018-11-11] MEDS: Atorvastatin* 80 MG TAB PO SCH (08:31)
[2018-11-11] MEDS: Aspirin EC TAB* 81 MG TAB.EC PO SCH (08:32)
[2018-11-11] MEDS: cefTRIAXone(*) 2 GM in NS 0.9% 50 ML* 50 ML IVPB SCH (08:37)
[2018-11-11] MEDS: Nystatin TOP POWDER* 15 GM BTL TOPICAL SCH ×3 (08:37→20:22)
[2018-11-11] MEDS ORDERED: Patiromer POWDER* 8.4 GM PAK PO ONE (09:22)
--- NOTE | 2018-11-11 09:29 | PN ---
Subjective Date of Service: 11/11/18 Interval History: No acute overnight issues. This morning, patient reports I want to feel better. Remains afebrile, occasional pain at the right foot. Family History: Unchanged from Admission Social History: Unchanged from Admission Past Medical History: Unchanged from Admission Objective Active Medications: Acetaminophen (Tylenol Tab*) 650 mg PO Q4H PRN PRN Reason: FEVER/PAIN Last Admin: 11/11/18 08:32 Dose: 650 mg Artificial Tears (Natural Balance Tears Eye Drop) 1 drop BOTH EYES Q4H PRN PRN Reason: DRY EYES Aspirin (Aspirin Ec Tab*) 81 mg PO DAILY [facility] Last Admin: 11/11/18 08:32 Dose: 81 mg Atorvastatin Calcium (Lipitor*) 80 mg PO DAILY [facility] Last Admin: 11/11/18 08:31 Dose: 80 mg Calcium Carbonate (Tums*) 500 mg PO BID [facility] Last Admin: 11/11/18 08:43 Dose: Not Given Cholecalciferol (Vitamin D Tab*) 400 unit PO DAILY [facility] Last Admin: 11/11/18 08:31 Dose: 400 unit Dextrose (D50w Syringe 50 Ml*) 12.5 gm IV PUSH .FOR FS < 60 - SS PRN PRN Reason: FS < 60 Ferrous Sulfate (Ferrous Sulfate Tab*) 325 mg PO DAILY [facility] Gabapentin (Neurontin Cap(*)) 100 mg PO DAILY [facility] Last Admin: 11/11/18 08:30 Dose: 100 mg Heparin Sodium (Porcine) (Heparin Vial(*)) 5,000 units SUBCUT Q8HR [facility] Last Admin: 11/11/18 05:07 Dose: 5,000 units Heparin Sodium (Porcine) (Heparin Flush Picc/Ml/Cvc(*)) 1 ml FLUSH 0600,1800 [facility]; Protocol Last Admin: 11/11/18 05:46 Dose: 1 ml Ceftriaxone Sodium 2 gm/ (Sodium Chloride) 50 mls @ 200 mls/hr IVPB Q24HR [facility] Last Admin: 11/11/18 08:37 Dose: 200 mls/hr Insulin Human Lispro (Humalog*) 0 units SUBCUT ACHS [facility]; Protocol Last Admin: 11/11/18 08:10 Dose: Not Given Methadone HCl (Dolophine Tab*) 2.5 mg PO Q6H PRN PRN Reason: PAIN Last Admin: 11/11/18 05:45 Dose: 2.5 mg Metronidazole (Flagyl Tab*) 500 mg PO TID [facility] Last Admin: 11/11/18 08:31 Dose: 500 mg Nystatin (Nystatin Top Powder*) 1 applic TOPICAL TID [facility] Last Admin: 11/11/18 08:37 Dose: 1 applic Ondansetron HCl (Zofran Inj*) 4 mg IV Q6H PRN PRN Reason: NAUSEA Patiromer (Veltassa Powder*) 8.4 gm PO ONCE ONE Stop: 11/11/18 09:23 Vital Signs - 8 hr 11/11/18 11/11/18 11/11/18 02:56 03:48 05:45 Temperature 98.1 F Pulse Rate 74 Respiratory 20 18 Rate Blood Pressure 146/43 (mmHg) O2 Sat by Pulse 97 94 Oximetry 11/11/18 11/11/18 11/11/18 08:00 08:30 08:38 Temperature Pulse Rate Respiratory 17 17 19 Rate Blood Pressure (mmHg) O2 Sat by Pulse 94 Oximetry Oxygen Devices in Use Now: None Appearance: Sitting on bed, not in distress. Respiratory: - - No tachypnea, mild expiratory wheezing with bibasilar crackles. Cardiovascular: - - No chest wall tendenress, irregularly irregular, systolic murmur best heard at the RUSB. 2-3+ pitting edema bilateral lower extremities. Abdominal: NL Sounds; No Tenderness; No Distention, No Hepatosplenomegaly Neurological: Alert and Oriented x 3 Result Diagrams: 11/11/18 05:32 11/11/18 05:32 Additional Lab and Data: Above labs were pulled into the note when the note was edited prior to signing , see labs from day of consult below Laboratory Tests 11/04/18 11/04/18 11/06/18 03:24 14:26 05:26 WBC 20.3 H Hgb 10.4 L Hct 32 L Plt Count 153 Sodium Potassium Chloride Carbon Dioxide BUN Creatinine Glucose C-Reactive Protein 98.07 H Total Protein Albumin Prealbumin < 3 L 11/06/18 05:26 WBC Hgb Hct Plt Count Sodium 133 L Potassium 5.1 H Chloride 107 Carbon Dioxide 21 L BUN 59 H Creatinine 2.42 H Glucose 118 H C-Reactive Protein Total Protein 4.5 L Albumin < 1.5 L Prealbumin Microbiology and Other Data: Microbiology 11/04/18 15:30 Stool Culture - Final Stool Stool Gross Appearance - Final Shiga Toxin I & II - Final Negative Shiga Toxin 1 & 2 Stool Occult Blood (IKE) - Final 11/01/18 03:12 Aerobic Blood Culture - Final Blood Venous Not Reportable Anaerobic Blood Culture - Final Not Reportable Blood Culture - Final No Growth Day 5 11/01/18 00:46 Aerobic Blood Culture - Final Blood Venous Not Reportable Anaerobic Blood Culture - Final Not Reportable Blood Culture - Final No Growth Day 5 10/31/18 19:45 Aerobic Blood Culture - Final Blood Venous Strep Dysgalactiae (Grp C) Anaerobic Blood Culture - Preliminary No Growth Day 3 11/03/18 17:20 Urine Culture - Final Urine No Growth (<1,000 CFU/mL) 11/01/18 02:18 Urine Culture - Final Urine No Growth (<1,000 CFU/mL) 11/01/18 04:05 Nasal Screen MRSA (PCR) - Final Nasal Mrsa Detected Diagnostic Imaging: Exam Date: 11/02/18 1400 - MRI LOWER EXTREMITY RIGHT W/O IMPRESSION: FINDINGS MOST CONSISTENT WITH OSTEOMYELITIS INVOLVING THE DISTAL PHALANX OF THE GREAT TOE. EKG Data: . Assess/Plan/Problems-Billing Assessment: Ms. Mendes is a 73 year old female with hx of CAD/CABG, DM, HTN transferred from [facility] on 11/01/18 for sepsis. Was in ICU, Right great toe osteomyelitis status post amputation 11/05, KELBY with CKD. - Patient Problems (1) KELBY (acute kidney injury) Current Visit: Yes Status: Acute Code(s): N17.9 - ACUTE KIDNEY FAILURE, UNSPECIFIED SNOMED Code(s): 17794037 Comment: Acute kidney injury with CKD, slight improvement. tolerating oral, currently not on IV fluids, and started to have fluid overload. avoid nephrotoxins, nephro consulted this admission, decreased urinary output as well, per nephro avoid diuretics, trial of one dose albumin today. (2) Cellulitis Current Visit: Yes Status: Acute Code(s): L03.90 - CELLULITIS, UNSPECIFIED SNOMED Code(s): 331053785 Comment: - Diabetic foot ulcer status post amputation right great toe. - Cont Ceftriaxone with addition of Flagyl per ID - Elevate legs (3) DVT prophylaxis Current Visit: Yes Status: Acute Code(s): Z29.9 - ENCOUNTER FOR PROPHYLACTIC MEASURES, UNSPECIFIED SNOMED Code(s): 989542326 Comment: Heparin subQ (4) Diabetes Current Visit: Yes Status: Acute Code(s): E11.9 - TYPE 2 DIABETES MELLITUS WITHOUT COMPLICATIONS SNOMED Code(s): 97766848 Comment: - HgbA1C 6.8 - Continue lispro sliding scale and accucheck ACHS (5) Diabetic toe ulcer Current Visit: Yes Status: Acute Code(s): E11.621 - TYPE 2 DIABETES MELLITUS WITH FOOT ULCER; L97.509 - NON-PRESSURE CHRONIC ULCER OTH PRT UNSP FOOT W UNSP SEVERITY SNOMED Code(s): 180396041 Comment: - S/P Right great toe amputation due to cellulitis and osteomyelitis on 11/05. - Cont abx - PT/OT consult ordered (6) Sepsis Current Visit: Yes Status: Acute Comment: resolved. sepsis due to right great toe osteomyelitis. continue rocephin and flagyl. (7) CAD (coronary artery disease) Current Visit: Yes Status: Acute Code(s): I25.10 - ATHSCL HEART DISEASE OF [place] CORONARY ARTERY W/O ANG PCTRS SNOMED Code(s): 45549113 Comment: History of CAD/CABG. stable, no chest pain. continue asa, statin. (8) Afib Current Visit: Yes Status: Acute Code(s): I48.91 - UNSPECIFIED ATRIAL FIBRILLATION SNOMED Code(s): 47754674 Comment: it seems new onset atrial fibrillation, d/w pateint regarding atrial fibrillation- she reports "no one told me I had bad rhythm". She is also having anemia, d/w patient regarding anticoagulation and stroke risk , and bleeding risk, at this point patient does not feel comfortable starting anticoagulation. "My blood count is low, now you want me to take a pill that could cause bleeding, I know about stroke. I will not have stroke, I already take aspirin." d/w patient guidelines and studies have shown aspirin is not good compared to "blood thinners". (9) Anemia Current Visit: Yes Status: Acute Code(s): D64.9 - ANEMIA, UNSPECIFIED SNOMED Code(s): 808047195 Comment: - Received 2 units PRBC 11/01 - H&H stable since transfusion - No overt bleeding noted. Stool negative. - Suspected secondary to KELBY, CKD, and Sepsis - anemia panel suggestive of iron deficiency, will start iron supplements. (10) Hyperkalemia Current Visit: Yes Status: Acute Code(s): E87.5 - HYPERKALEMIA SNOMED Code (s): 30254627 Comment: in stting of kidney disease, kayexalate unavailable, pharmacy recommended patiromer- have ordered. change diet to consistent carb diet w/ 2gm K. Status and Disposition: Inpatient, guarded
[2018-11-11] MEDS ORDERED: Albumin Human 5%* 12.5 GM/250 ML BTL IV ONE (10:00)
[2018-11-11] MEDS ORDERED: oxyCODONE TAB* 5 MG TAB PO ONE (10:13)
[2018-11-11] MEDS: Ferrous Sulfate TAB* 325 MG PO SCH (10:47)
[2018-11-11 15:38] LABS: BUN/Creatinine Ratio 31.7 (8-20); Calcium 8.1 mg/dL (8.6-10.3); EGFR African American 29.2 (>60); EGFR Non-African American 24.1 (>60)
[2018-11-11 15:44] LABS: Potassium 5.4 mmol/L (3.5-5.0)
[2018-11-11] MEDS ORDERED: Insulin REGULAR(*) 1 UNITS UNIT IV PUSH ONE (16:28)
[2018-11-11] MEDS ORDERED: Dextrose 50% VIAL 50 ml IV ONE (16:29)
[2018-11-11] MEDS ORDERED: Dextrose 50% Syringe 50 ML* 25 GM/50 ML SYRINGE IV PUSH STA (16:31)
[2018-11-11] MEDS: Patiromer POWDER* 8.4 GM PAK PO SCH (18:17)
[2018-11-11] MEDS: oxyCODONE TAB* 5 MG TAB PO PRN (18:19)
[2018-11-12] MEDS: Methadone TAB* 5 MG PO PRN (02:26)
[2018-11-12] MEDS: Heparin VIAL(*) 5000 UNITS/ML VIAL (FIVE THOUSAND) SUBCUT SCH ×3 (05:04→20:55)
[2018-11-12 05:32] LABS: Hematocrit 24 % (35-47); Hemoglobin 8.1 g/dL (12.0-16.0); Mean Corpuscular HGB Conc 34 g/dL (31-36); Mean Corpuscular Hemoglobin 32 pg (27-31); Mean Corpuscular Volume 94 fL (80-97); Mean Platelet Volume 9.1 fL (7.4-10.4); Platelet Count 146 10^3/uL (150-450); Red Blood Count 2.57 10^6 /uL (3.70-4.87); Red Cell Distribution Width 18 % (10-15); White Blood Count 6.5 10^3/uL (3.5-10.8)
[2018-11-12 05:53] LABS: Albumin/Globulin Ratio 0.5 (1-3); BUN/Creatinine Ratio 34.4 (8-20); Calcium 8.2 mg/dL (8.6-10.3); EGFR African American 32.1 (>60); EGFR Non-African American 26.6 (>60); Globulin 4.1 g/dL (2-4); Magnesium 1.9 mg/dL (1.9-2.7); Phosphorus 5.4 mg/dL (2.5-5.0); Potassium 5.5 mmol/L (3.5-5.0); Total Bilirubin 0.7 mg/dL (0.2-1.0); Total Protein 6.1 g/dL (6.4-8.9)
[2018-11-12] MEDS: Insulin LISPRO* 1 UNITS UNIT SUBCUT SCH ×4 (09:03→20:55)
--- NOTE | 2018-11-12 09:13 | PN ---
Progress Note - Progress Note Date of Service: 11/12/18 SOAP: Subjective: CC: bacteremia HPI: 73 year old woman with diabetes and right great toe infection, now amputated. No joint pain, but does have low back pain. No fever, rash, or diarrhea. Legs are swollen. Objective: Vital Signs Temp 36.4 C 11/12/18 04:29 Pulse 83 11/12/18 04:29 Resp 17 11/12/18 04:57 BP 151/43 11/12/18 04:29 Pulse Ox 100 11/12/18 04:29 Intake & Output 11/11/18 11/12/18 11/12/18 18:59 06:59 18:59 Intake Total 360 Output Total 750 375 Balance -390 -375 Intake: Oral 360 Output: Barber 750 375 Other: # Bowel Movements 1 Estimated Stool Amount Medium Gen:in no distress Neuro: awake, answers questions appropriately HEENT: no thrush or conj hemorrhage Heart:RRR no murmur Lungs:Decr BS at bases MSK: BL LE edema, no spine or BL knee tenderness; diffuse LE edema; Right foot wrapped Abd:+BS NTND soft Neuro: strength 5/5 quad/TA/gastroc BL Assessment: 1. Grp C Strep bacteremia due to right great toe cellulitis and acute osteomyelitis; 2. Presence of knee replacements which are not inflamed on exam 3. Diabetes with neuropathy 4. KELBY 5. Low back pain Plan: 1. MRI T and L spine without contrast to evaluate for spine infection, continue ceftriaxone 2 gm IV daily and flagyl 500 mg po tid day - depending on MRI findings
[2018-11-12] MEDS: Atorvastatin* 80 MG TAB PO SCH (09:41)
[2018-11-12] MEDS: Gabapentin CAP(*) 100 MG PO SCH (09:41)
[2018-11-12] MEDS: metroNIDAZOLE TAB* 250 MG PO SCH ×3 (09:41→21:03)
[2018-11-12] MEDS: Aspirin EC TAB* 81 MG TAB.EC PO SCH (09:42)
[2018-11-12] MEDS: oxyCODONE TAB* 5 MG TAB PO PRN (09:42)
[2018-11-12] MEDS: Ferrous Sulfate TAB* 325 MG PO SCH (09:42)
[2018-11-12] MEDS: Calcium Carbonate CHEW TAB* 500 MG (TUMS) PO SCH ×3 (09:42→20:56)
[2018-11-12] MEDS: Cholecalciferol TAB* 400 UNIT PO SCH (09:42)
[2018-11-12] MEDS: cefTRIAXone(*) 2 GM in NS 0.9% 50 ML* 50 ML IVPB SCH (09:43)
[2018-11-12] MEDS: Patiromer POWDER* 8.4 GM PAK PO SCH ×2 (09:57→13:07)
[2018-11-12] MEDS: Sodium Bicarbonate (ANTACID)* 650 MG TAB PO SCH ×2 (10:04→20:56)
--- NOTE | 2018-11-12 10:21 | PN ---
Subjective Date of Service: 11/12/18 Interval History: Having pain at the back, reports at home, takes 10mg methadone BID. Pain in the back is lower back, worse with movement, but better when she changes her position. Family History: Unchanged from Admission Social History: Unchanged from Admission Past Medical History: Unchanged from Admission Objective Active Medications: Acetaminophen (Tylenol Tab*) 650 mg PO Q4H PRN PRN Reason: FEVER/PAIN Last Admin: 11/11/18 22:44 Dose: 650 mg Artificial Tears (Natural Balance Tears Eye Drop) 1 drop BOTH EYES Q4H PRN PRN Reason: DRY EYES Aspirin (Aspirin Ec Tab*) 81 mg PO DAILY [facility] Last Admin: 11/12/18 09:42 Dose: 81 mg Atorvastatin Calcium (Lipitor*) 80 mg PO DAILY [facility] Last Admin: 11/12/18 09:41 Dose: 80 mg Calcium Carbonate (Tums*) 500 mg PO BID [facility] Last Admin: 11/12/18 09:56 Dose: Not Given Cholecalciferol (Vitamin D Tab*) 400 unit PO DAILY [facility] Last Admin: 11/12/18 09:42 Dose: 400 unit Dextrose (D50w Syringe 50 Ml*) 12.5 gm IV PUSH .FOR FS < 60 - SS PRN PRN Reason: FS < 60 Ferrous Sulfate (Ferrous Sulfate Tab*) 325 mg PO DAILY [facility] Last Admin: 11/12/18 09:42 Dose: 325 mg Gabapentin (Neurontin Cap(*)) 100 mg PO DAILY [facility] Last Admin: 11/12/18 09:41 Dose: 100 mg Heparin Sodium (Porcine) (Heparin Vial(*)) 5,000 units SUBCUT Q8HR [facility] Last Admin: 11/12/18 05:04 Dose: 5,000 units Heparin Sodium (Porcine) (Heparin Flush Picc/Ml/Cvc(*)) 1 ml FLUSH 0600,1800 [facility]; Protocol Last Admin: 11/12/18 05:01 Dose: 1 ml Ceftriaxone Sodium 2 gm/ (Sodium Chloride) 50 mls @ 200 mls/hr IVPB Q24HR [facility] Last Admin: 11/12/18 09:43 Dose: 200 mls/hr Insulin Human Lispro (Humalog*) 0 units SUBCUT ACHS [facility]; Protocol Last Admin: 11/12/18 09:03 Dose: Not Given Metronidazole (Flagyl Tab*) 500 mg PO TID [facility] Last Admin: 11/12/18 09:41 Dose: 500 mg Nystatin (Nystatin Top Powder*) 1 applic TOPICAL TID [facility] Last Admin: 11/11/18 20:22 Dose: 1 applic Ondansetron HCl (Zofran Inj*) 4 mg IV Q6H PRN PRN Reason: NAUSEA Oxycodone HCl (Roxycodone Tab*) 5 mg PO Q8H PRN PRN Reason: PAIN SCALE 6-10 Last Admin: 11/12/18 09:42 Dose: 5 mg Patiromer (Veltassa Powder*) 8.4 gm PO 1230 [facility] Sodium Bicarbonate (Sodium Bicarbonate (Antacid)*) 650 mg PO BID [facility] Last Admin: 11/12/18 10:04 Dose: 650 mg Vital Signs - 8 hr 11/12/18 11/12/18 11/12/18 02:26 04:29 04:57 Temperature 97.6 F Pulse Rate 83 Respiratory 20 16 17 Rate Blood Pressure 151/43 (mmHg) O2 Sat by Pulse 100 Oximetry 11/12/18 11/12/18 09:41 09:42 Temperature Pulse Rate Respiratory 20 20 Rate Blood Pressure (mmHg) O2 Sat by Pulse Oximetry Oxygen Devices in Use Now: Nasal Cannula Appearance: Elderly female lying in bed, in mild distress Respiratory: Symmetrical Chest Expansion and Respiratory Effort, Clear to Auscultation Cardiovascular: - - irregularly irregular. no chest wall tenderness Abdominal: NL Sounds; No Tenderness; No Distention, No Hepatosplenomegaly Extremities: - - 2+ pitting edema bilateral lower extremities. erythema bilateral lower extremtiies, dressing intact at the right foot Neurological: Alert and Oriented x 3 Result Diagrams: 11/12/18 05:06 11/12/18 05:06 Additional Lab and Data: Above labs were pulled into the note when the note was edited prior to signing , see labs from day of consult below Laboratory Tests 11/04/18 11/04/18 11/06/18 03:24 14:26 05:26 WBC 20.3 H Hgb 10.4 L Hct 32 L Plt Count 153 Sodium Potassium Chloride Carbon Dioxide BUN Creatinine Glucose C-Reactive Protein 98.07 H Total Protein Albumin Prealbumin < 3 L 11/06/18 05:26 WBC Hgb Hct Plt Count Sodium 133 L Potassium 5.1 H Chloride 107 Carbon Dioxide 21 L BUN 59 H Creatinine 2.42 H Glucose 118 H C-Reactive Protein Total Protein 4.5 L Albumin < 1.5 L Prealbumin Microbiology and Other Data: Microbiology 11/04/18 15:30 Stool Culture - Final Stool Stool Gross Appearance - Final Shiga Toxin I & II - Final Negative Shiga Toxin 1 & 2 Stool Occult Blood (IKE) - Final 11/01/18 03:12 Aerobic Blood Culture - Final Blood Venous Not Reportable Anaerobic Blood Culture - Final Not Reportable Blood Culture - Final No Growth Day 5 11/01/18 00:46 Aerobic Blood Culture - Final Blood Venous Not Reportable Anaerobic Blood Culture - Final Not Reportable Blood Culture - Final No Growth Day 5 10/31/18 19:45 Aerobic Blood Culture - Final Blood Venous Strep Dysgalactiae (Grp C) Anaerobic Blood Culture - Preliminary No Growth Day 3 11/03/18 17:20 Urine Culture - Final Urine No Growth (<1,000 CFU/mL) 11/01/18 02:18 Urine Culture - Final Urine No Growth (<1,000 CFU/mL) 11/01/18 04:05 Nasal Screen MRSA (PCR) - Final Nasal Mrsa Detected Diagnostic Imaging: Exam Date: 11/02/18 1400 - MRI LOWER EXTREMITY RIGHT W/O IMPRESSION: FINDINGS MOST CONSISTENT WITH OSTEOMYELITIS INVOLVING THE DISTAL PHALANX OF THE GREAT TOE. EKG Data: . Assess/Plan/Problems-Billing Assessment: Ms. Mendes is a 73 year old female with hx of CAD/CABG, DM, HTN transferred from [facility] on 11/01/18 for sepsis. Was in ICU, Right great toe osteomyelitis status post amputation 11/05, KELBY with CKD. - Patient Problems (1) KELBY (acute kidney injury) Current Visit: Yes Status: Acute Code(s): N17.9 - ACUTE KIDNEY FAILURE, UNSPECIFIED SNOMED Code(s): 11624641 Comment: Acute kidney injury with CKD, slowly improving. but now having hyperkalemia, with low Bicarb tolerating oral, currently not on IV fluids, and started to have fluid overload. avoid nephrotoxins. started bicarbonate monitor urine output received albumin one dose 11/11, helped with urine output, edema, and Cr trending down. continue patiromer (2) Cellulitis Current Visit: Yes Status: Acute Code(s): L03.90 - CELLULITIS, UNSPECIFIED SNOMED Code(s): 345081910 Comment: - Diabetic foot ulcer status post amputation right great toe. - Cont Ceftriaxone with addition of Flagyl per ID - Elevate legs - having back pain: obtain MRI T-L spine. (3) DVT prophylaxis Current Visit: Yes Status: Acute Code(s): Z29.9 - ENCOUNTER FOR PROPHYLACTIC MEASURES, UNSPECIFIED SNOMED Code(s): 874438550 Comment: Heparin subQ (4) Diabetes Current Visit: Yes Status: Acute Code(s): E11.9 - TYPE 2 DIABETES MELLITUS WITHOUT COMPLICATIONS SNOMED Code(s): 82973133 Comment: - HgbA1C 6.8 - Continue lispro sliding scale and accucheck ACHS (5) Diabetic toe ulcer Current Visit: Yes Status: Acute Code(s): E11.621 - TYPE 2 DIABETES MELLITUS WITH FOOT ULCER; L97.509 - NON-PRESSURE CHRONIC ULCER OTH PRT UNSP FOOT W UNSP SEVERITY SNOMED Code(s): 690361871 Comment: - S/P Right great toe amputation due to cellulitis and osteomyelitis on 11/05. - Cont abx - PT/OT consult ordered (6) Sepsis Current Visit: Yes Status: Acute Comment: resolved. sepsis due to right great toe osteomyelitis. continue rocephin and flagyl. (7) CAD (coronary artery disease) Current Visit: Yes Status: Acute Code(s): I25.10 - ATHSCL HEART DISEASE OF [place] CORONARY ARTERY W/O ANG PCTRS SNOMED Code(s): 40638528 Comment: History of CAD/CABG. stable, no chest pain. continue asa, statin. (8) Afib Current Visit: Yes Status: Acute Code(s): I48.91 - UNSPECIFIED ATRIAL FIBRILLATION SNOMED Code(s): 23299143 Comment: it seems new onset atrial fibrillation, d/w pateint regarding atrial fibrillation- she reports "no one told me I had bad rhythm". She is also having anemia, d/w patient regarding anticoagulation and stroke risk , and bleeding risk, at this point patient does not feel comfortable starting anticoagulation. "My blood count is low, now you want me to take a pill that could cause bleeding, I know about stroke. I will not have stroke, I already take aspirin." d/w patient guidelines and studies have shown aspirin is not good compared to "blood thinners". (9) Anemia Current Visit: Yes Status: Acute Code(s): D64.9 - ANEMIA, UNSPECIFIED SNOMED Code(s): 845176405 Comment: - Received 2 units PRBC / - H&H stable since transfusion - No overt bleeding noted. Stool negative. - Suspected secondary to KELBY, CKD, and Sepsis - anemia panel suggestive of iron deficiency, will start iron supplements. (10) Hyperkalemia Current Visit: Yes Status: Acute Code(s): E87.5 - HYPERKALEMIA SNOMED Code (s): 78505002 Comment: in stting of kidney disease, kayexalate unavailable, pharmacy recommended patiromer- have ordered. patiromer 8.4gm daily. change diet to consistent carb diet w/ 2gm K. Status and Disposition: Inpatient, guarded
[2018-11-12] MEDS: Nystatin TOP POWDER* 15 GM BTL TOPICAL SCH ×3 (11:13→20:58)
[2018-11-12] MEDS ORDERED: Morphine 4 MG/ML VIAL (1 ml) 4 MG/ML VIAL IV ONE (14:08)
[2018-11-12] MEDS: Ondansetron INJ* 2 MG/ML VIAL IV PRN (14:51)
--- NOTE | 2018-11-12 16:05 | PN ---
PROGRESS NOTE: DATE OF SERVICE: 11/12/18 INTERVAL HISTORY: Ms. Mendes was seen in room 433. She was sitting up in bed comfortable. She has no complaints of pain in the foot. She is 1 week out from the amputation of her right great toe. This was performed for osteomyelitis and a large plantar ulcer. She has been on the medical service. She is growing group C strep bacteremia. She is being covered with ceftriaxone and Flagyl. Her wound is changed today and it is clean and dry. Sutures still intact. They should be left alone for another week or so. Second toe was at some risk because of its large size and hammertoe formation, but it is not infected to my knowledge at this point in time. [id number]/CPS #: [id number] USHA
[2018-11-12] MEDS: Methadone TAB* 10 MG PO SCH (20:54)
[2018-11-12] MEDS ORDERED: Insulin REGULAR(*) 1 UNITS UNIT IV PUSH ONE (22:47)
[2018-11-12] MEDS ORDERED: Furosemide IV* 10 MG/ML 2 ML VIAL (20 MG) IV SLOW PU ONE (22:47)
[2018-11-12] MEDS ORDERED: Dextrose 50% Syringe 50 ML* 25 GM/50 ML SYRINGE IV PUSH PRN (22:47)
[2018-11-13] MEDS: oxyCODONE TAB* 5 MG TAB PO PRN ×2 (04:28→14:26)
[2018-11-13 04:50] LABS: Hematocrit 20 % (35-47); Hemoglobin 6.6 g/dL (12.0-16.0); Mean Corpuscular HGB Conc 33 g/dL (31-36); Mean Corpuscular Hemoglobin 31 pg (27-31); Mean Corpuscular Volume 94 fL (80-97); Platelet Count 141 10^3/uL (150-450); Red Cell Distribution Width 18 % (10-15); White Blood Count 7.2 10^3/uL (3.5-10.8)
[2018-11-13 05:15] LABS: Albumin 1.7 g/dL (3.2-5.2); Albumin/Globulin Ratio 0.4 (1-3); BUN/Creatinine Ratio 32.5 (8-20); Calcium 8.2 mg/dL (8.6-10.3); EGFR African American 27.6 (>60); EGFR Non-African American 22.8 (>60); Globulin 4.2 g/dL (2-4); Phosphorus 5.7 mg/dL (2.5-5.0); Total Bilirubin 0.7 mg/dL (0.2-1.0); Total Protein 5.9 g/dL (6.4-8.9)
[2018-11-13 05:26] LABS: Potassium 5.7 mmol/L (3.5-5.0)
[2018-11-13] MEDS: Heparin VIAL(*) 5000 UNITS/ML VIAL (FIVE THOUSAND) SUBCUT SCH ×2 (06:02→14:26)
[2018-11-13] MEDS: Insulin LISPRO* 1 UNITS UNIT SUBCUT SCH ×4 (08:02→21:52)
[2018-11-13] MEDS: Nystatin TOP POWDER* 15 GM BTL TOPICAL SCH ×3 (08:10→21:53)
[2018-11-13] MEDS: Ferrous Sulfate TAB* 325 MG PO SCH (09:20)
[2018-11-13] MEDS: Cholecalciferol TAB* 400 UNIT PO SCH (09:20)
[2018-11-13] MEDS: Gabapentin CAP(*) 100 MG PO SCH (09:21)
[2018-11-13] MEDS: Methadone TAB* 10 MG PO SCH ×2 (09:21→21:52)
[2018-11-13] MEDS: Acetaminophen TAB* 325 MG PO PRN ×2 (09:21→16:54)
[2018-11-13] MEDS: Atorvastatin* 80 MG TAB PO SCH (09:22)
[2018-11-13] MEDS: cefTRIAXone(*) 2 GM in NS 0.9% 50 ML* 50 ML IVPB SCH (09:22)
[2018-11-13] MEDS: Sodium Bicarbonate (ANTACID)* 650 MG TAB PO SCH ×2 (09:22→21:53)
[2018-11-13] MEDS: Calcium Carbonate CHEW TAB* 500 MG (TUMS) PO SCH ×2 (09:22→21:53)
[2018-11-13] MEDS: Aspirin EC TAB* 81 MG TAB.EC PO SCH (09:22)
[2018-11-13] MEDS: metroNIDAZOLE TAB* 250 MG PO SCH ×3 (09:27→22:00)
[2018-11-13] MEDS: Ondansetron INJ* 2 MG/ML VIAL IV PRN (12:50)
[2018-11-13] MEDS: Patiromer POWDER* 8.4 GM PAK PO SCH (12:53)
--- NOTE | 2018-11-13 14:38 | PN ---
Progress Note - Progress Note Date of Service: 11/13/18 SOAP: Subjective: CC: bacteremia HPI: 73 year old woman with diabetes and right great toe infection, now amputated. Back pain continues off and on, no fever, rash, or diarrhea. Objective: Vital Signs Temp 36.8 C 11/13/18 11:44 Pulse 79 11/13/18 11:44 Resp 18 11/13/18 14:26 BP 112/32 11/13/18 11:44 Pulse Ox 99 11/13/18 11:44 Intake & Output 11/12/18 11/13/18 11/13/18 18:59 06:59 18:59 Intake Total 570 580 120 Output Total 200 100 Balance 370 480 120 Intake: Oral 570 580 120 Output: Barber 200 100 Gen:in no distress Neuro: awake, answers questions appropriately HEENT: no thrush or conj hemorrhage Heart:RRR no murmur Lungs:Decr BS at bases MSK: BL LE edema, no spine or BL knee tenderness; diffuse LE edema; Right foot wrapped Abd:+BS NTND soft Neuro: strength 5/5 quad/TA/gastroc BL Laboratory Results - last 24 hr 11/12/18 11/12/18 11/12/18 17:58 20:10 22:10 WBC RBC Hgb Hct MCV MCH MCHC RDW Plt Count MPV Sodium Potassium 5.9 H Chloride Carbon Dioxide Anion Gap BUN Creatinine Est GFR ( Amer) Est GFR (Non-Af Amer) BUN/Creatinine Ratio Glucose POC Glucose (mg/dL) 141 H 150 H Calcium Ionized Calcium Phosphorus Magnesium Total Bilirubin AST ALT Alkaline Phosphatase Total Protein Albumin Globulin Albumin/Globulin Ratio 11/12/18 11/13/18 11/13/18 22:58 01:00 03:45 WBC RBC Hgb Hct MCV MCH MCHC RDW Plt Count MPV Sodium Potassium Chloride Carbon Dioxide Anion Gap BUN Creatinine Est GFR ( Amer) Est GFR (Non-Af Amer) BUN/Creatinine Ratio Glucose POC Glucose (mg/dL) 137 H 73 81 Calcium Ionized Calcium Phosphorus Magnesium Total Bilirubin AST ALT Alkaline Phosphatase Total Protein Albumin Globulin Albumin/Globulin Ratio 11/13/18 11/13/18 11/13/18 04:40 04:40 04:40 WBC 7.2 RBC 2.10 L Hgb 6.6 L Hct 20 L MCV 94 MCH 31 MCHC 33 RDW 18 H Plt Count 141 L MPV 9.0 Sodium 131 L Potassium 5.7 H Chloride 107 Carbon Dioxide 18 L Anion Gap 6 BUN 69 H Creatinine 2.12 H Est GFR ( Amer) 27.6 Est GFR (Non-Af Amer) 22.8 BUN/Creatinine Ratio 32.5 H Glucose 55 L POC Glucose (mg/dL) Calcium 8.2 L Ionized Calcium 1.23 Phosphorus 5.7 H Magnesium 2.0 Total Bilirubin 0.70 AST 27 ALT 9 Alkaline Phosphatase 254 H Total Protein 5.9 L Albumin 1.7 L Globulin 4.2 H Albumin/Globulin Ratio 0.4 L 11/13/18 11/13/18 07:48 11:58 WBC RBC Hgb Hct MCV MCH MCHC RDW Plt Count MPV Sodium Potassium Chloride Carbon Dioxide Anion Gap BUN Creatinine Est GFR ( Amer) Est GFR (Non-Af Amer) BUN/Creatinine Ratio Glucose POC Glucose (mg/dL) 129 H 158 H Calcium Ionized Calcium Phosphorus Magnesium Total Bilirubin AST ALT Alkaline Phosphatase Total Protein Albumin Globulin Albumin/Globulin Ratio Assessment: 1. Grp C Strep bacteremia due to right great toe cellulitis and acute osteomyelitis; 2. Left psoas abscess and vertebral osteodiskitis, neuro intact 3. Diabetes with neuropathy 4. KELBY Plan: 1. continue ceftriaxone 2 gm IV daily and flagyl 500 mg po tid day , follow neuro exam, PT evaluation.
--- NOTE | 2018-11-13 16:28 | PN ---
Subjective Date of Service: 11/13/18 Interval History: Patient seen this afternoon with and son in the room. Available records noted, reviewed. She is currently s/p right great toe amputation due to osteomyelitis and strep bacteremia. On Rocephin and flagyl as per ID recommendations. this morning labs noted for Hgb of 6.6; Hct of 20; k+ 5.7; and albumin of 1.7, MRI of lumbar spine reveals left psoas muscles as well. I did approach patient palliative care consult, however at this time both and son are in favor but the patient is not ready to leave "her and children". She agreed to have blood transfusion. consent obtained signed by her son in the room Past Medical History: Unchanged from Admission Objective Active Medications: Acetaminophen (Tylenol Tab*) 650 mg PO Q4H PRN PRN Reason: FEVER/PAIN Last Admin: 11/13/18 09:21 Dose: 650 mg Artificial Tears (Natural Balance Tears Eye Drop) 1 drop BOTH EYES Q4H PRN PRN Reason: DRY EYES Atorvastatin Calcium (Lipitor*) 80 mg PO DAILY [facility] Last Admin: 11/13/18 09:22 Dose: 80 mg Calcium Carbonate (Tums*) 500 mg PO BID [facility] Last Admin: 11/13/18 09:22 Dose: Not Given Cholecalciferol (Vitamin D Tab*) 400 unit PO DAILY [facility] Last Admin: 11/13/18 09:20 Dose: 400 unit Dextrose (D50w Syringe 50 Ml*) 12.5 gm IV PUSH .FOR FS < 60 - SS PRN PRN Reason: FS < 60 Ferrous Sulfate (Ferrous Sulfate Tab*) 325 mg PO DAILY [facility] Last Admin: 11/13/18 09:20 Dose: 325 mg Furosemide (Lasix Iv*) 20 mg IV ONCE [facility] Gabapentin (Neurontin Cap(*)) 100 mg PO DAILY [facility] Last Admin: 11/13/18 09:21 Dose: 100 mg Heparin Sodium (Porcine) (Heparin Flush Picc/Ml/Cvc(*)) 1 ml FLUSH 0600,1800 [facility]; Protocol Last Admin: 11/13/18 04:27 Dose: 1 ml Ceftriaxone Sodium 2 gm/ (Sodium Chloride) 50 mls @ 200 mls/hr IVPB Q24HR [facility] Last Admin: 11/13/18 09:22 Dose: 200 mls/hr Albumin Human (Albumin Human 25%*) 12.5 gm in 50 mls @ 50 mls/hr IV Q6H [facility] Stop: 11/15/18 16:59 Insulin Human Lispro (Humalog*) 0 units SUBCUT ACHS [facility]; Protocol Last Admin: 11/13/18 12:52 Dose: 3 units Methadone HCl (Dolophine Tab*) 10 mg PO BID [facility] Last Admin: 11/13/18 09:21 Dose: 10 mg Metronidazole (Flagyl Tab*) 500 mg PO 0900,1500,2100 [facility] Last Admin: 11/13/18 09:27 Dose: 500 mg Nystatin (Nystatin Top Powder*) 1 applic TOPICAL TID [facility] Last Admin: 11/13/18 14:28 Dose: 1 applic Ondansetron HCl (Zofran Inj*) 4 mg IV Q6H PRN PRN Reason: NAUSEA Last Admin: 11/13/18 12:50 Dose: 4 mg Oxycodone HCl (Roxycodone Tab*) 5 mg PO Q8H PRN PRN Reason: PAIN SCALE 6-10 Last Admin: 11/13/18 14:26 Dose: 5 mg Patiromer (Veltassa Powder*) 8.4 gm PO 1230 [facility] Last Admin: 11/13/18 12:53 Dose: 8.4 gm Sodium Bicarbonate (Sodium Bicarbonate (Antacid)*) 650 mg PO BID [facility] Last Admin: 11/13/18 09:22 Dose: 650 mg Vital Signs - 8 hr 11/13/18 11/13/18 11/13/18 09:21 11:44 11:53 Temperature 98.2 F Pulse Rate 79 Respiratory 20 16 16 Rate Blood Pressure 112/32 (mmHg) O2 Sat by Pulse 99 Oximetry 11/13/18 14:26 Temperature Pulse Rate Respiratory 18 Rate Blood Pressure (mmHg) O2 Sat by Pulse Oximetry Oxygen Devices in Use Now: Nasal Cannula Appearance: pale. soft spoken Eyes: - - icteric sclera Respiratory: - - poor air flow, distant BS Cardiovascular: NL Sounds; No Murmurs; No JVD, - - + # edema Abdominal: - - Obese, +BS; Anasarca Neurological: Alert and Oriented x 3 Result Diagrams: 11/13/18 04:40 11/13/18 04:40 Additional Lab and Data: Above labs were pulled into the note when the note was edited prior to signing , see labs from day of consult below Laboratory Tests 11/04/18 11/04/18 11/06/18 03:24 14:26 05:26 WBC 20.3 H Hgb 10.4 L Hct 32 L Plt Count 153 Sodium Potassium Chloride Carbon Dioxide BUN Creatinine Glucose C-Reactive Protein 98.07 H Total Protein Albumin Prealbumin < 3 L 11/06/18 05:26 WBC Hgb Hct Plt Count Sodium 133 L Potassium 5.1 H Chloride 107 Carbon Dioxide 21 L BUN 59 H Creatinine 2.42 H Glucose 118 H C-Reactive Protein Total Protein 4.5 L Albumin < 1.5 L Prealbumin Microbiology and Other Data: Microbiology 11/04/18 15:30 Stool Culture - Final Stool Stool Gross Appearance - Final Shiga Toxin I & II - Final Negative Shiga Toxin 1 & 2 Stool Occult Blood (IKE) - Final 11/01/18 03:12 Aerobic Blood Culture - Final Blood Venous Not Reportable Anaerobic Blood Culture - Final Not Reportable Blood Culture - Final No Growth Day 5 11/01/18 00:46 Aerobic Blood Culture - Final Blood Venous Not Reportable Anaerobic Blood Culture - Final Not Reportable Blood Culture - Final No Growth Day 5 10/31/18 19:45 Aerobic Blood Culture - Final Blood Venous Strep Dysgalactiae (Grp C) Anaerobic Blood Culture - Preliminary No Growth Day 3 11/03/18 17:20 Urine Culture - Final Urine No Growth (<1,000 CFU/mL) 11/01/18 02:18 Urine Culture - Final Urine No Growth (<1,000 CFU/mL) 11/01/18 04:05 Nasal Screen MRSA (PCR) - Final Nasal Mrsa Detected Diagnostic Imaging: Exam Date: 11/02/18 1400 - MRI LOWER EXTREMITY RIGHT W/O IMPRESSION: FINDINGS MOST CONSISTENT WITH OSTEOMYELITIS INVOLVING THE DISTAL PHALANX OF THE GREAT TOE. EKG Data: . Assess/Plan/Problems-Billing Assessment: Ms. Mendes is a 73 year old female with hx of CAD/CABG, DM, HTN transferred from [facility] on 11/01/18 for sepsis. Was in ICU, Right great toe osteomyelitis status post amputation 11/05, KELBY with CKD. - Patient Problems (1) Streptococcal bacteremia Current Visit: Yes Status: Acute Code(s): R78.81 - BACTEREMIA; B95.5 - UNSP STREPTOCOCCUS THE CAUSE OF DISEASES CLASSD [id number] SNOMED Code(s): 904381847504 Comment: - ID consulting and now on rocephin and flagyl - Blood cultures from [facility] on 10/31 grew Strep Dysgalactiae - Transthoracic echo negative for vegetation - Repeat cultures with no growth to date - Given her psoas muscle abcess I will discss with IR in am if they can drain it. but for now we need to fix her albunemia, and anemia. (2) KELBY (acute kidney injury) Current Visit: Yes Status: Acute Code(s): N17.9 - ACUTE KIDNEY FAILURE, UNSPECIFIED SNOMED Code(s): 53568606 Comment: - Acute kidney injury with CKD, due to sepsis, and hypoalbunemia and low oncotic pressure - continue bicarbonate, I will place her on albumin infusion Q 6hr 12.5 g 25% until Albumin 2.5 or greater. followed by lasix and monitor urine output and daily creatinine (3) Anemia Current Visit: Yes Status: Acute Code(s): D64.9 - ANEMIA, UNSPECIFIED SNOMED Code(s): 989361360 Comment: - s/p 2 units PRBC 11/01 - H&H down to 6.6 today and Hct to 20 - No overt bleeding noted. - Suspected secondary to KELBY, CKD, and Sepsis and gastritis. - anemia panel suggestive of iron deficiency, will start iron supplements. - I will stop her aspirin and heparin SQ for now. Add Pepcid 20 mg bid (4) Hyperkalemia Current Visit: Yes Status: Acute Code(s): E87.5 - HYPERKALEMIA SNOMED Code (s): 35574317 Comment: - secondary to KELBY and hypoalbunemia - Will place her on kayexalate (available as per pharmacy) Will give 30 mg po tonight - change diet to consistent carb diet w/ 2gm K. (5) Serum albumin decreased Current Visit: Yes Status: Acute Code(s): E88.09 - OTH DISORDERS OF PLASMA- PROTEIN METABOLISM, NEC SNOMED Code(s): 287424356 Comment: - s/p post albumin infusion as per Dr Rubi recommends (albumin bolus of 100 grams than drip of 3 grams/hr) - Given her albumin of 1.7 and anasarca, KELBY I will start albumin 12.5 gm Q 6hrs followed by lasix. Reassess in am Status and Disposition: Inpatient, guarded
[2018-11-13] MEDS ORDERED: Sodium Polystyrene ORAL.SOL* 15 GM/60 ML BTL PO ONE (17:00)
--- NOTE | 2018-11-13 17:18 | PN ---
Subjective Date of Service: 11/13/18 Interval History: Ms. Mendes is a 73-year-old female with past medical history significant for CAD, peripheral neuropathy, TIA, anemia, chronic bilateral lower extremity lymphedema , chronic renal insufficiency, and DM 2, who initially presented to [facility] Emergency Room via ambulance after calling 911 due to generalized weakness. While in the [facility] Emergency Room, she was found to have signs of sepsis and was transferred to [facility]. She was admitted to the hospital for Sepsis, right 1st toe infection and cellulitis. While in the hospital she underwent a right 1st toe amputation with orthopedics on due to osteomyelitis. She was monitored in the ICU and is now back on the medical floor. 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 She was seen by Dr. Hayden in July 2017 at the [facility] for Wound healing. She has recently been followup with the wound clinic at [place], she states that they were using calcium alginate and changing the dressing once weekly. Patient seen and examined at bedside. Family History: Unchanged from Admission Social History: Unchanged from Admission Past Medical History: Unchanged from Admission Objective Active Medications: Acetaminophen (Tylenol Tab*) 650 mg PO Q4H PRN Reason: FEVER/PAIN Artificial Tears (Natural Balance Tears Eye Drop) 1 drop BOTH EYES Q4H PRN Reason: DRY EYES Atorvastatin Calcium (Lipitor*) 80 mg PO DAILY [facility] Calcium Carbonate (Tums*) 500 mg PO BID [facility] Cholecalciferol (Vitamin D Tab*) 400 unit PO DAILY [facility] Dextrose (D50w Syringe 50 Ml*) 12.5 gm IV PUSH .FOR FS < 60 - SS PRN Reason: FS < 60 Famotidine (Pepcid Tab*) 20 mg PO DAILY [facility] Ferrous Sulfate (Ferrous Sulfate Tab*) 325 mg PO DAILY [facility] Furosemide (Lasix Iv*) 20 mg IV BID@0800,2000 [facility] Gabapentin (Neurontin Cap(*)) 100 mg PO DAILY [facility] Heparin Sodium (Porcine) (Heparin Flush Picc/Ml/Cvc(*)) 1 ml FLUSH 0600,1800 [facility]; Protocol Ceftriaxone Sodium 2 gm/ (Sodium Chloride) 50 mls @ 200 mls/hr IVPB Q24HR [facility] Albumin Human (Albumin Human 25%*) 12.5 gm in 50 mls @ 50 mls/hr IV Q6H [facility] Stop: 11/15/18 16:59 Insulin Human Lispro (Humalog*) 0 units SUBCUT ACHS [facility]; Protocol Methadone HCl (Dolophine Tab*) 10 mg PO BID [facility] Metronidazole (Flagyl Tab*) 500 mg PO 0900,1500,2100 [facility] Nystatin (Nystatin Top Powder*) 1 applic TOPICAL TID [facility] Ondansetron HCl (Zofran Inj*) 4 mg IV Q6H PRN Reason: NAUSEA Oxycodone HCl (Roxycodone Tab*) 5 mg PO Q8H PRN Reason: PAIN SCALE 6-10 Patiromer (Veltassa Powder*) 8.4 gm PO 1230 [facility] Sodium Bicarbonate (Sodium Bicarbonate (Antacid)*) 650 mg PO BID [facility] Vital Signs 11/13/18 11/13/18 11/13/18 09:21 11:44 11:53 Temperature 98.2 F Pulse Rate 79 Respiratory 20 16 16 Rate Blood Pressure 112/32 (mmHg) O2 Sat by Pulse 99 Oximetry Oxygen Devices in Use Now: Nasal Cannula Appearance: NAD, ill appearing and laying in bed Ears/Nose/Mouth/Throat: Mucous Membranes Moist Respiratory: Symmetrical Chest Expansion and Respiratory Effort Skin: - - See skin note below Neurological: - - Drowsy and oriented to person and place Nutrition: Taking PO's Result Diagrams: 11/14/18 04:50 11/14/18 04:50 Additional Lab and Data: Above labs were pulled into the note when edited prior to signing the note, see below for labs from the day of consultation Laboratory Tests 11/04/18 11/13/18 11/13/18 03:24 04:40 04:40 WBC 7.2 Hgb 6.6 L Hct 20 L Plt Count 141 L Sodium 131 L Potassium 5.7 H Chloride 107 Carbon Dioxide 18 L BUN 69 H Creatinine 2.12 H Glucose 55 L Total Protein 5.9 L Albumin 1.7 L Prealbumin < 3 L Diagnostic Imaging: Exam Date: 11/02/18 1400 - MRI LOWER EXTREMITY RIGHT W/O IMPRESSION: FINDINGS MOST CONSISTENT WITH OSTEOMYELITIS INVOLVING THE DISTAL PHALANX OF THE GREAT TOE. Skin Deviation Note - Skin Deviation Findings Right lower leg - Skin intact with superficial scabbing and mild erythema. No drainage noted. Left lower leg - Superficial scabbing and superficial open areas. Open area on the left anterior/lateral leg measures 2 cm x 2 cm x 0.1 cm. The wound base is pink granulation tissue. The surrounding skin with mild erythema. No drainage noted. Assessment/Plan: Ms. Mendes is a 73-year-old female with past medical history significant for CAD, peripheral neuropathy, TIA, anemia, chronic bilateral lower extremity lymphedema , chronic renal insufficiency, and DM 2, who initially presented to [facility] due to generalized weakness. While in the [facility] Emergency Room, she was found to have signs of sepsis and was transferred to [facility]. She was admitted to the hospital for Sepsis, right 1st toe infection and cellulitis. While in the hospital she underwent a right 1st toe amputation with orthopedics on 11/05/18 due to osteomyelitis. 1. Bilateral lower extremity superficial wounds. These wounds are chronic, secondary to venous insufficiency. Recommend washing the legs with soap and water, and apply lotion to the intact skin daily. If the open areas start to weep, can use calcium alginate and rolled gauze, changing the dressing daily to every other day. Consider ABIs if not done recently and she she doesn't pursue comfort care/Hospice. She should continued to follow with the [place] wound clinic at discharge. 2. Chronic bilateral LE lymphedema. 3. Right 1st toe osteomyelitis. S/P Right 1st toe amputation. Dressing per orthopedics. 4. DM2. HgA1C was 6.8 during this hospitalization. Maintain good glycemic control to allow for wound healing. 5. Concern for malnutrition. Prealbuim is <3. Dietary following. 6. Diet. Consistent Carbohydrate diet. 7. Code Status. Full Code Status. 8. Disposition. Inpatient, disposition per orthopedics. TIME SPENT: Time for this wound consultation was 20 minutes and 10 minutes was spent with the patient and family discussing PMH; assessing, measuring, and photographing the wounds. Wound Problem/Plan Is Patient a Wound Clinic Patient: Yes - [facility] Current Treatment: Calcium alginate Attending: Cristine Key
[2018-11-13] MEDS: Albumin Human 25%* 12.5 GM/50 ML BTL IV SCH ×2 (17:23→22:03)
[2018-11-13] MEDS: Morphine 4 MG/ML VIAL (1 ml) 4 MG/ML VIAL IV PRN (19:27)
[2018-11-13] MEDS: Furosemide IV* 10 MG/ML 2 ML VIAL (20 MG) IV SCH (20:55)
[2018-11-13] MEDS: Famotidine TAB* 20 MG PO SCH (21:52)
[2018-11-14] MEDS: Morphine 4 MG/ML VIAL (1 ml) 4 MG/ML VIAL IV PRN (00:30)
[2018-11-14 01:23] LABS: ABS Basophils 0.1 10^3/ul (0-0.2); ABS Eosinophils 0.2 10^3/ul (0-0.6); ABS Lymphocytes 1.5 10^3/ul (1.0-4.8); ABS Neutrophils 4.3 10^3/ul (1.5-7.7); Eosinophil % 2.2 %; Hematocrit 21 % (35-47); Hemoglobin 7.2 g/dL (12.0-16.0); Lymphocyte % 20.9 %; Mean Corpuscular HGB Conc 34 g/dL (31-36); Mean Corpuscular Hemoglobin 31 pg (27-31); Mean Corpuscular Volume 92 fL (80-97); Mean Platelet Volume 8.6 fL (7.4-10.4); Nucleated Red Blood Cells % 0.1; Platelet Count 117 10^3/uL (150-450); Red Blood Count 2.33 10^6 /uL (3.70-4.87); Red Cell Distribution Width 18 % (10-15)
[2018-11-14 01:39] LABS: BUN/Creatinine Ratio 29.1 (8-20); Calcium 8.3 mg/dL (8.6-10.3); EGFR African American 24.3 (>60); EGFR Non-African American 20.1 (>60)
[2018-11-14 01:41] LABS: Potassium 5.7 mmol/L (3.5-5.0)
[2018-11-14] MEDS: oxyCODONE TAB* 5 MG TAB PO PRN ×3 (03:42→17:40)
[2018-11-14] MEDS: Albumin Human 25%* 12.5 GM/50 ML BTL IV SCH ×3 (04:44→17:58)
[2018-11-14 05:04] LABS: ABS Basophils 0.1 10^3/ul (0-0.2); ABS Eosinophils 0.1 10^3/ul (0-0.6); ABS Lymphocytes 1.2 10^3/ul (1.0-4.8); ABS Monocytes 0.9 10^3/ul (0-0.8); ABS Neutrophils 4.4 10^3/ul (1.5-7.7); Eosinophil % 1.4 %; Hematocrit 21 % (35-47); Hemoglobin 6.9 g/dL (12.0-16.0); Lymphocyte % 17.6 %; Mean Corpuscular HGB Conc 34 g/dL (31-36); Mean Corpuscular Hemoglobin 31 pg (27-31); Mean Corpuscular Volume 92 fL (80-97); Mean Platelet Volume 8.7 fL (7.4-10.4); Platelet Count 115 10^3/uL (150-450); Red Blood Count 2.24 10^6 /uL (3.70-4.87); Red Cell Distribution Width 18 % (10-15); White Blood Count 6.7 10^3/uL (3.5-10.8)
[2018-11-14 05:26] LABS: Albumin/Globulin Ratio 0.5 (1-3); BUN/Creatinine Ratio 30.6 (8-20); Calcium 8.1 mg/dL (8.6-10.3); EGFR African American 25.3 (>60); EGFR Non-African American 20.9 (>60); Indirect Bilirubin 0.4 mg/dL (0.3-1.0); Phosphorus 6.3 mg/dL (2.5-5.0); Total Bilirubin 0.9 mg/dL (0.2-1.0)
[2018-11-14 05:28] LABS: Potassium 5.6 mmol/L (3.5-5.0)
[2018-11-14] MEDS: Cholecalciferol TAB* 400 UNIT PO SCH (08:25)
[2018-11-14] MEDS: Ferrous Sulfate TAB* 325 MG PO SCH (08:25)
[2018-11-14] MEDS: Atorvastatin* 80 MG TAB PO SCH (08:25)
[2018-11-14] MEDS: Furosemide IV* 10 MG/ML 2 ML VIAL (20 MG) IV SCH ×2 (08:25→19:20)
[2018-11-14] MEDS: Acetaminophen TAB* 325 MG PO PRN ×3 (08:26→17:40)
[2018-11-14] MEDS: Sodium Bicarbonate (ANTACID)* 650 MG TAB PO SCH (08:26)
[2018-11-14] MEDS: Famotidine TAB* 20 MG PO SCH (08:26)
[2018-11-14] MEDS: Gabapentin CAP(*) 100 MG PO SCH (08:26)
[2018-11-14] MEDS: Methadone TAB* 10 MG PO SCH (08:27)
[2018-11-14] MEDS: Insulin LISPRO* 1 UNITS UNIT SUBCUT SCH ×3 (08:27→17:58)
[2018-11-14] MEDS: Calcium Carbonate CHEW TAB* 500 MG (TUMS) PO SCH (08:27)
[2018-11-14] MEDS: Nystatin TOP POWDER* 15 GM BTL TOPICAL SCH ×3 (08:54→19:21)
[2018-11-14] MEDS: metroNIDAZOLE TAB* 250 MG PO SCH ×2 (09:19→17:58)
[2018-11-14] MEDS: cefTRIAXone(*) 2 GM in NS 0.9% 50 ML* 50 ML IVPB SCH (09:19)
--- NOTE | 2018-11-14 14:37 | PN ---
Subjective Date of Service: 11/14/18 Interval History: seen this morning, less alert, less lucid when compared to yesterday. I attempted to revisit with her the palliative care and comfort care goal of treatment she was not clear if she made her decision yet. I asked her if she discussed it with her and at one time she stated that she does not want to have any thing done but she falls a sleep right away. I am awaiting to have meeting with her and son this afternoon regarding decision regarding comfort care and palliative care. at this time I will continue with aggressive treatment Past Medical History: Unchanged from Admission Objective Active Medications: Acetaminophen (Tylenol Tab*) 650 mg PO Q4H PRN PRN Reason: FEVER/PAIN Last Admin: 11/14/18 11:28 Dose: 650 mg Artificial Tears (Natural Balance Tears Eye Drop) 1 drop BOTH EYES Q4H PRN PRN Reason: DRY EYES Atorvastatin Calcium (Lipitor*) 80 mg PO DAILY [facility] Last Admin: 11/14/18 08:25 Dose: 80 mg Calcium Carbonate (Tums*) 500 mg PO BID [facility] Last Admin: 11/14/18 08:27 Dose: Not Given Cholecalciferol (Vitamin D Tab*) 400 unit PO DAILY [facility] Last Admin: 11/14/18 08:25 Dose: 400 unit Dextrose (D50w Syringe 50 Ml*) 12.5 gm IV PUSH .FOR FS < 60 - SS PRN PRN Reason: FS < 60 Famotidine (Pepcid Tab*) 20 mg PO DAILY [facility] Last Admin: 11/14/18 08:26 Dose: 20 mg Ferrous Sulfate (Ferrous Sulfate Tab*) 325 mg PO DAILY [facility] Last Admin: 11/14/18 08:25 Dose: 325 mg Furosemide (Lasix Iv*) 20 mg IV BID@0800,2000 [facility] Last Admin: 11/14/18 08:25 Dose: 20 mg Gabapentin (Neurontin Cap(*)) 100 mg PO DAILY [facility] Last Admin: 11/14/18 08:26 Dose: 100 mg Heparin Sodium (Porcine) (Heparin Flush Picc/Ml/Cvc(*)) 1 ml FLUSH 0600,1800 [facility]; Protocol Last Admin: 11/14/18 04:45 Dose: 1 ml Ceftriaxone Sodium 2 gm/ (Sodium Chloride) 50 mls @ 200 mls/hr IVPB Q24HR [facility] Last Admin: 11/14/18 09:19 Dose: 200 mls/hr Albumin Human (Albumin Human 25%*) 12.5 gm in 50 mls @ 50 mls/hr IV Q6H [facility] Stop: 11/15/18 16:59 Last Admin: 11/14/18 13:34 Dose: 50 mls/hr Insulin Human Lispro (Humalog*) 0 units SUBCUT ACHS [facility]; Protocol Last Admin: 11/14/18 12:25 Dose: Not Given Methadone HCl (Dolophine Tab*) 10 mg PO BID [facility] Last Admin: 11/14/18 08:27 Dose: 10 mg Metronidazole (Flagyl Tab*) 500 mg PO 0900,1500,2100 [facility] Last Admin: 11/14/18 09:19 Dose: 500 mg Morphine Sulfate (Morphine 4 Mg/Ml Vial (1 Ml)) 4 mg IV Q4H PRN PRN Reason: PAIN Last Admin: 11/14/18 00:30 Dose: 4 mg Nystatin (Nystatin Top Powder*) 1 applic TOPICAL TID [facility] Last Admin: 11/14/18 08:54 Dose: 1 applic Ondansetron HCl (Zofran Inj*) 4 mg IV Q6H PRN PRN Reason: NAUSEA Last Admin: 11/13/18 12:50 Dose: 4 mg Oxycodone HCl (Roxycodone Tab*) 5 mg PO Q8H PRN PRN Reason: PAIN SCALE 6-10 Last Admin: 11/14/18 11:28 Dose: 5 mg Patiromer (Veltassa Powder*) 8.4 gm PO 1230 [facility] Last Admin: 11/13/18 12:53 Dose: 8.4 gm Sodium Bicarbonate (Sodium Bicarbonate (Antacid)*) 650 mg PO BID [facility] Last Admin: 11/14/18 08:26 Dose: 650 mg Vital Signs - 8 hr 11/14/18 11/14/18 11/14/18 07:51 08:00 08:26 Temperature 98.1 F Pulse Rate 70 Respiratory 16 16 16 Rate Blood Pressure 125/48 (mmHg) O2 Sat by Pulse 100 Oximetry 11/14/18 11/14/18 11/14/18 08:27 10:53 11:06 Temperature 98 F Pulse Rate 99 Respiratory 16 16 16 Rate Blood Pressure 124/47 (mmHg) O2 Sat by Pulse 100 Oximetry 07/11/14/18 11/14/18 11:28 11:40 12:25 Temperature 97.3 F Pulse Rate 77 Respiratory 16 18 16 Rate Blood Pressure 132/42 (mmHg) O2 Sat by Pulse 100 Oximetry 11/14/18 12:26 Temperature Pulse Rate Respiratory 16 Rate Blood Pressure (mmHg) O2 Sat by Pulse Oximetry Oxygen Devices in Use Now: Nasal Cannula Appearance: lethargic, pale... dry oral mucosa Ears/Nose/Mouth/Throat: - - erik oral mucosa Neck: Trachea Midline Respiratory: - - poor air flow Cardiovascular: - - + 4 anasarca Abdominal: NL Sounds; No Tenderness; No Distention Extremities: - - edema bilateral venous stasis ulcers Result Diagrams: 11/14/18 04:50 11/14/18 04:50 Additional Lab and Data: Above labs were pulled into the note when the note was edited prior to signing , see labs from day of consult below Microbiology and Other Data: Microbiology 11/04/18 15:30 Stool Culture - Final Stool Stool Gross Appearance - Final Shiga Toxin I & II - Final Negative Shiga Toxin 1 & 2 Stool Occult Blood (IKE) - Final 11/01/18 03:12 Aerobic Blood Culture - Final Blood Venous Not Reportable Anaerobic Blood Culture - Final Not Reportable Blood Culture - Final No Growth Day 5 11/01/18 00:46 Aerobic Blood Culture - Final Blood Venous Not Reportable Anaerobic Blood Culture - Final Not Reportable Blood Culture - Final No Growth Day 5 10/31/18 19:45 Aerobic Blood Culture - Final Blood Venous Strep Dysgalactiae (Grp C) Anaerobic Blood Culture - Preliminary No Growth Day 3 11/03/18 17:20 Urine Culture - Final Urine No Growth (<1,000 CFU/mL) 11/01/18 02:18 Urine Culture - Final Urine No Growth (<1,000 CFU/mL) 11/01/18 04:05 Nasal Screen MRSA (PCR) - Final Nasal Mrsa Detected Diagnostic Imaging: Exam Date: 11/02/18 1400 - MRI LOWER EXTREMITY RIGHT W/O IMPRESSION: FINDINGS MOST CONSISTENT WITH OSTEOMYELITIS INVOLVING THE DISTAL PHALANX OF THE GREAT TOE. EKG Data: . Assess/Plan/Problems-Billing Assessment: Ms. Mendes is a 73 year old female with hx of CAD/CABG, DM, HTN transferred from [facility] on 11/01/18 for sepsis. Was in ICU, Right great toe osteomyelitis status post amputation 11/05, KELBY with CKD. - Patient Problems (1) Streptococcal bacteremia Current Visit: Yes Status: Acute Code(s): R78.81 - BACTEREMIA; B95.5 - UNSP STREPTOCOCCUS THE CAUSE OF DISEASES CLASSD [id number] SNOMED Code(s): 499953174031 Comment: - ID consulting and now on rocephin and flagyl - Blood cultures from [facility] on 10/31 grew Strep Dysgalactiae - Transthoracic echo negative for vegetation - Repeat cultures with no growth to date - Given her psoas muscle abcess I will discss with IR in am if they can drain it. However given her overall comorbid condition and I gonig to meet with family and discuss palliative care first before proceeding with acute interventions - I am going to hold her IV morphine as she is getting too sedated for now (2) KELBY (acute kidney injury) Current Visit: Yes Status: Acute Code(s): N17.9 - ACUTE KIDNEY FAILURE, UNSPECIFIED SNOMED Code(s): 69135683 Comment: - Acute kidney injury with CKD, due to sepsis, and hypoalbunemia and low oncotic pressure - continue bicarbonate PO - I did start her on albumin infusion Q 6hr 12.5 g 25% until Albumin 2.5 or greater. - I will continue lasix but will increase to q 6hrs. - I will start bicarb drip if family wants to pursue aggressive treatment (3) Anemia Current Visit: Yes Status: Acute Code(s): D64.9 - ANEMIA, UNSPECIFIED SNOMED Code(s): 739175344 Comment: - s/p 2 units PRBC 11/01 - H&H down to 6.6 11/13/18 s/p 2 units. And this morning her Hgb 6.9 only after 2 units. Will give additional units. Will check CBC at 6 pm and BMP - No overt bleeding noted. - Suspected secondary to KELBY, CKD, and Sepsis and gastritis. - Anemia panel suggestive of iron deficiency, will start iron supplements. - I will stop her aspirin and heparin SQ for now. Add Pepcid 20 mg bid (4) Hyperkalemia Current Visit: Yes Status: Acute Code(s): E87.5 - HYPERKALEMIA SNOMED Code (s): 51844800 Comment: - secondary to KELBY and hypoalbunemia - s/p kayexalate (available as per pharmacy) s/p 30 mg po 11/13/18 - change diet to consistent carb diet w/ 2gm K. - recheck BMP this afternoon 6 pm (5) Serum albumin decreased Current Visit: Yes Status: Acute Code(s): E88.09 - OTH DISORDERS OF PLASMA- PROTEIN METABOLISM, NEC SNOMED Code(s): 909638683 Comment: - s/p post albumin infusion as per Dr Rubi recommends (albumin bolus of 100 grams than drip of 3 grams/hr) - Given her albumin of 1.7 and anasarca, KELBY I did start albumin 12.5 gm Q 6hrs followed by lasix. level today is 2.0. Reassess in am (6) Afib Current Visit: Yes Status: Acute Code(s): I48.91 - UNSPECIFIED ATRIAL FIBRILLATION SNOMED Code(s): 12840988 Comment: it seems new onset atrial fibrillation, d/w pateint regarding atrial fibrillation- she reports "no one told me I had bad rhythm". - Newly diagnosed as per patient subjective history - not candidate for anticoagulation due to anemia - Off aspirin and heparin SQ due to anemia - Echo 11/01/18 EF 55% diastollic dysfunctions (7) CAD (coronary artery disease) Current Visit: Yes Status: Acute Code(s): I25.10 - ATHSCL HEART DISEASE OF [place] CORONARY ARTERY W/O ANG PCTRS SNOMED Code(s): 04177309 Comment: - History of CAD/CABG. (8) Diabetes Current Visit: Yes Status: Acute Code(s): E11.9 - TYPE 2 DIABETES MELLITUS WITHOUT COMPLICATIONS SNOMED Code(s): 87641203 Comment: - HgbA1C 6.8 - Continue lispro sliding scale and accucheck ACHS (9) DVT prophylaxis Current Visit: Yes Status: Acute Code(s): Z29.9 - ENCOUNTER FOR PROPHYLACTIC MEASURES, UNSPECIFIED SNOMED Code(s): 482086500 Comment: - off Heparin subQ due to anemia Status and Disposition: Inpatient, guarded
[2018-11-14] MEDS: Patiromer POWDER* 8.4 GM PAK PO SCH (14:40)
[2018-11-14 14:44] VITALS: BP 120/43
[2018-11-14] MEDS ORDERED: Morphine ORAL CONCENTRATE* 5 MG/0.25 ML ORAL.SYRIN SL PRN (17:36)
--- NOTE | 2018-11-14 17:46 | CONSULT ---
Palliative / Hospice Consult Ordering Provider: Christian Rangel Referal Reason: goals of care discussion - Subjective Code Status: DNR Advance Directives Location: Filed at Another Location [facility] Part A Completed: Yes - on chart [facility] Part E Completed:: Yes - on chart - History or Present Illness History or Present Illness: 73 yo female with DM type 2 presents to ER with fever and generalized weakness for 3 days. PMH is significant for HTN, CVA, CAD s/p CABG, chronic bilateral LE lymphadema, DM neuropathy, TIA, anemia, CKD and chronic pain on methadone. 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 Studies show ekg#1 nsr, ekg #2 afib, Echo EF 55-60%, mod regurge no vegetation, CXR pulm vascular congestion , foot xray DJD no fx, MRI osteomyelitis great toe distal phylax, renal U/S neg , CT abd/pelvis-bilat pleural effusion, pulm edema, atelectasis, liver U/S sludge in gallbladder, thoracic MRI-DJD and lumbar MRI stenosis & L psoas abscess, DJD with disc disease, H/H 6.9/21, BUN/Cr 70/2.29, egfr 20.9, K 5.6,Ca 8.1, PO4 6.3, tprot 6, alb 2, blood culture grew strep dysgalactiae. Pt was admitted with sepsis/bacteremia, osteomyelitis several sites, acute on chronic kidney disease, anemia and elevated troponin she was transferred to ICU 11/06 for hypotension and transferred back to floor on 11/08. Pt had [facility] stating DNR/DNI but upon admission she wanted to be a full code. Pt usually is hospitalized at [facility] or [facility]. All history is from family and medical records, pt unable to contribute. Lab Values: Abnormal Lab Results 11/01/18 11/13/18 11/13/18 03:12 04:40 20:58 WBC RBC Hgb Hct MCV MCH MCHC RDW Plt Count MPV Neut % (Auto) Lymph % (Auto) [place] % (Auto) Eos % (Auto) Baso % (Auto) Absolute Neuts (auto) Absolute Lymphs (auto) Absolute Monos (auto) Absolute Eos (auto) Absolute Basos (auto) Absolute Nucleated RBC Nucleated RBC % Sodium Potassium Chloride Carbon Dioxide Anion Gap BUN Creatinine Est GFR ( Amer) Est GFR (Non-Af Amer) BUN/Creatinine Ratio Glucose POC Glucose (mg/dL) 150 H Calcium Ionized Calcium Phosphorus Magnesium Total Bilirubin Direct Bilirubin Indirect Bilirubin AST ALT Alkaline Phosphatase Total Protein Albumin Globulin Albumin/Globulin Ratio Blood Type A Positive Antibody Screen Negative Crossmatch See Detail See Detail 11/14/18 11/14/18 11/14/18 01:15 01:15 04:50 WBC 7.0 6.7 RBC 2.33 L 2.24 L Hgb 7.2 L 6.9 L Hct 21 L 21 L MCV 92 92 MCH 31 31 MCHC 34 34 RDW 18 H 18 H Plt Count 117 L 115 L MPV 8.6 8.7 Neut % (Auto) 61.7 66.5 Lymph % (Auto) 20.9 17.6 [place] % (Auto) 14.4 13.3 Eos % (Auto) 2.2 1.4 Baso % (Auto) 0.8 1.2 Absolute Neuts (auto) 4.3 4.4 Absolute Lymphs (auto) 1.5 1.2 Absolute Monos (auto) 1.0 H 0.9 H Absolute Eos (auto) 0.2 0.1 Absolute Basos (auto) 0.1 0.1 Absolute Nucleated RBC 0.0 0.0 Nucleated RBC % 0.1 0.0 Sodium 131 L Potassium 5.7 H Chloride 107 Carbon Dioxide 19 L Anion Gap 5 BUN 69 H Creatinine 2.37 H Est GFR ( Amer) 24.3 Est GFR (Non-Af Amer) 20.1 BUN/Creatinine Ratio 29.1 H Glucose 123 H POC Glucose (mg/dL) Calcium 8.3 L Ionized Calcium Phosphorus Magnesium Total Bilirubin Direct Bilirubin Indirect Bilirubin AST ALT Alkaline Phosphatase Total Protein Albumin Globulin Albumin/Globulin Ratio Blood Type Antibody Screen Crossmatch 11/14/18 11/14/18 11/14/18 04:50 04:50 07:38 WBC RBC Hgb Hct MCV MCH MCHC RDW Plt Count MPV Neut % (Auto) Lymph % (Auto) [place] % (Auto) Eos % (Auto) Baso % (Auto) Absolute Neuts (auto) Absolute Lymphs (auto) Absolute Monos (auto) Absolute Eos (auto) Absolute Basos (auto) Absolute Nucleated RBC Nucleated RBC % Sodium 131 L Potassium 5.6 H Chloride 107 Carbon Dioxide 18 L Anion Gap 6 BUN 70 H Creatinine 2.29 H Est GFR ( Amer) 25.3 Est GFR (Non-Af Amer) 20.9 BUN/Creatinine Ratio 30.6 H Glucose 119 H POC Glucose (mg/dL) 154 H Calcium 8.1 L Ionized Calcium 1.22 Phosphorus 6.3 H Magnesium 2.0 Total Bilirubin 0.90 Direct Bilirubin 0.50 H Indirect Bilirubin 0.4 AST 31 ALT 10 Alkaline Phosphatase 210 H Total Protein 6.0 L Albumin 2.0 L Globulin 4.0 Albumin/Globulin Ratio 0.5 L Blood Type Antibody Screen Crossmatch 11/14/18 12:19 WBC RBC Hgb Hct MCV MCH MCHC RDW Plt Count MPV Neut % (Auto) Lymph % (Auto) [place] % (Auto) Eos % (Auto) Baso % (Auto) Absolute Neuts (auto) Absolute Lymphs (auto) Absolute Monos (auto) Absolute Eos (auto) Absolute Basos (auto) Absolute Nucleated RBC Nucleated RBC % Sodium Potassium Chloride Carbon Dioxide Anion Gap BUN Creatinine Est GFR ( Amer) Est GFR (Non-Af Amer) BUN/Creatinine Ratio Glucose POC Glucose (mg/dL) 125 H Calcium Ionized Calcium Phosphorus Magnesium Total Bilirubin Direct Bilirubin Indirect Bilirubin AST ALT Alkaline Phosphatase Total Protein Albumin Globulin Albumin/Globulin Ratio Blood Type Antibody Screen Crossmatch Laboratory Last Values WBC 6.7 10^3/uL (3.5-10.8) 11/14/18 04:50 RBC 2.24 10^6 /uL (3.70-4.87) L 11/14/18 04:50 Hgb 6.9 g/dL (12.0-16.0) L 11/14/18 04:50 Hct 21 % (35-47) L 11/14/18 04:50 MCV 92 fL (80-97) 11/14/18 04:50 MCH 31 pg (27-31) 11/14/18 04:50 MCHC 34 g/dL (31-36) 11/14/18 04:50 RDW 18 % (10-15) H 11/14/18 04:50 Plt Count 115 10^3/uL (150-450) L 11/14/18 04:50 MPV 8.7 fL (7.4-10.4) 11/14/18 04:50 Neut % (Auto) 66.5 % 11/14/18 04:50 Lymph % (Auto) 17.6 % 11/14/18 04:50 [place] % (Auto) 13.3 % 11/14/18 04:50 Eos % (Auto) 1.4 % 11/14/18 04:50 Baso % (Auto) 1.2 % 11/14/18 04:50 Absolute Neuts (auto) 4.4 10^3/ul (1.5-7.7) 11/14/18 04:50 Absolute Lymphs (auto) 1.2 10^3/ul (1.0-4.8) 11/14/18 04:50 Absolute Monos (auto) 0.9 10^3/ul (0-0.8) H 11/14/18 04:50 Absolute Eos (auto) 0.1 10^3/ul (0-0.6) 11/14/18 04:50 Absolute Basos (auto) 0.1 10^3/ul (0-0.2) 11/14/18 04:50 Absolute Nucleated RBC 0.0 10^3/ul 11/14/18 04:50 Nucleated RBC % 0.0 11/14/18 04:50 Eosinophil Smear None seen 11/06/18 22:50 INR (Anticoag Therapy) 1.50 (0.82-1.09) H 11/08/18 05:55 APTT 65.7 seconds (26.0-38.0) H 11/08/18 05:55 Patient Temperature Not Reportable 11/06/18 15:40 ABG pH 7.36 (7.35-7.45) 11/06/18 15:40 ABG pH (Temp Correct) Not Reportable 11/06/18 15:40 ABG pCO2 31 mmHg (35-45) L 11/06/18 15:40 ABG pCO2 (Temp Corrct Not Reportable 11/06/18 15:40 ABG pO2 121 mmHg (80-100) H 11/06/18 15:40 ABG pO2 (Temp Correct Not Reportable 11/06/18 15:40 ABG HCO3 19.6 mmol/L (19-31) 11/06/18 15:40 ABG O2 Saturation 99.9 % (94.0-98.0) H 11/06/18 15:40 ABG Base Excess -6.8 mmol/L (-2.0-2.0) L 11/06/18 15:40 Respiration Rate Not Reportable 11/06/18 15:40 O2 Delivery Device nasal cannula 2lpm 11/06/18 15:40 Ventilator Type Not Reportable 11/06/18 15:40 Vent Mode Not Reportable 11/06/18 15:40 FiO2 Not Reportable 11/06/18 15:40 Inspiratory Time Not Reportable 11/06/18 15:40 PEEP Not Reportable 11/06/18 15:40 Pressure Support Not Reportable 11/06/18 15:40 Pressure Control Not Reportable 11/06/18 15:40 EPAP Not Reportable 11/06/18 15:40 IPAP Not Reportable 11/06/18 15:40 BiPAP Not Reportable 11/06/18 15:40 Sodium 131 mmol/L (135-145) L 11/14/18 04:50 Potassium 5.6 mmol/L (3.5-5.0) H 11/14/18 04:50 Chloride 107 mmol/L (101-111) 11/14/18 04:50 Carbon Dioxide 18 mmol/L (22-32) L 11/14/18 04:50 Anion Gap 6 mmol/L (2-11) 11/14/18 04:50 BUN 70 mg/dL (6-24) H 11/14/18 04:50 Creatinine 2.29 mg/dL (0.51-0.95) H 11/14/18 04:50 Est GFR ( Amer) 25.3 (>60) 11/14/18 04:50 Est GFR (Non-Af Amer) 20.9 (>60) 11/14/18 04:50 BUN/Creatinine Ratio 30.6 (8-20) H 11/14/18 04:50 Glucose 119 mg/dL (70-100) H 11/14/18 04:50 POC Glucose (mg/dL) 125 mg/dL (70-100) H 11/14/18 12:19 Hemoglobin A1c 6.8 % (4.0-5.6) H 11/01/18 03:39 Lactic Acid 1.3 mmol/L (0.5-2.0) 11/07/18 04:39 Calcium 8.1 mg/dL (8.6-10.3) L 11/14/18 04:50 Ionized Calcium 1.22 mmol/L (1.16-1.32) 11/14/18 04:50 Phosphorus 6.3 mg/dL (2.5-5.0) H 11/14/18 04:50 Magnesium 2.0 mg/dL (1.9-2.7) 11/14/18 04:50 Iron < 17 ug/dL (50-212) L 11/01/18 00:46 TIBC 155 mcg/dL (250-450) L 11/01/18 00:46 % Saturation 11 % (15-55) L 11/01/18 00:46 Unsat Iron Binding < 140 ug/dL 11/01/18 00:46 Transferrin < 75 mg/dL (203-362) L 11/06/18 20:28 Total Bilirubin 0.90 mg/dL (0.2-1.0) 11/14/18 04:50 Direct Bilirubin 0.50 mg/dL (0.03-0.18) H 11/14/18 04:50 Indirect Bilirubin 0.4 mg/dL (0.3-1.0) 11/14/18 04:50 AST 31 U/L (13-39) 11/14/18 04:50 ALT 10 U/L (7-52) 11/14/18 04:50 Alkaline Phosphatase 210 U/L (34-104) H 11/14/18 04:50 Ammonia 37 mcmol/L (16-53) 11/06/18 20:28 Troponin I 0.18 ng/mL (<0.04) H* 11/01/18 11:22 C-Reactive Protein 98.07 mg/L (<8.01) H 11/04/18 14:26 B-Natriuretic Peptide > 1300 pg/mL (<=100) H 11/09/18 05:35 Total Protein 6.0 g/dL (6.4-8.9) L 11/14/18 04:50 Total Protein (PEP) 4.3 g/dL (6.3 - 7.9) L 11/05/18 06:47 Albumin 2.0 g/dL (3.2-5.2) L 11/14/18 04:50 Albumin (PEP) 1.1 g/dL (3.4-4.7) L 11/05/18 06:47 Globulin 4.0 g/dL (2-4) 11/14/18 04:50 Albumin/Globulin Ratio 0.5 (1-3) L 11/14/18 04:50 Albumin/Globulin (PEP) 0.35 11/05/18 06:47 Prealbumin < 3 mg/dL (18-38) L 11/04/18 03:24 Eoqtm-3-Zysncjwir 0.3 g/dL (0.1-0.3) 11/05/18 06:47 Wpaqb-6-Qyrcettca 0.7 g/dL (0.6-1.0) 11/05/18 06:47 Nnvb-7-Thqvmykh 0.5 g/dL (0.7-1.2) L 11/05/18 06:47 Gamma Globulins 1.7 g/dL (0.6-1.6) H 11/05/18 06:47 M-Ilir Not Reportable 11/05/18 06:47 M-Ilir 2 Not Reportable 11/05/18 06:47 PEP Impression See comment 11/05/18 06:47 Vitamin B12 > 1450 pg/mL (180-914) H 11/01/18 00:46 Folate > 20.00 ng/mL (>3.99) 11/01/18 00:46 Urine Color [place] 11/03/18 17:20 Urine Appearance Turbid 11/03/18 17:20 Urine pH 5.0 (5-9) 11/03/18 17:20 Ur Specific [place] 1.017 (1.010-1.030) 11/03/18 17:20 Urine Protein 2+(100 mg/dl) (Negative) A 11/03/18 17:20 Urine Ketones Negative (Negative) 11/03/18 17:20 Urine Blood Negative (Negative) 11/03/18 17:20 Urine Nitrate Negative (Negative) 11/03/18 17:20 Urine Bilirubin Negative (Negative) 11/03/18 17:20 Urine Urobilinogen Negative (Negative) 11/03/18 17:20 Ur Leukocyte Esterase Negative (Negative) 11/03/18 17:20 Urine WBC (Auto) 1+(6-10/hpf) (Absent) A 11/03/18 17:20 Urine RBC (Auto) Trace(0-2/hpf) (Absent) 11/03/18 17:20 Ur Squamous Epith Cells Present (Absent) A 11/03/18 17:20 Urine Bacteria Absent (Absent) 11/03/18 17:20 Urine Yeast Present (Absent) A 11/01/18 02:18 Ur Random Albumin % 31 % 11/04/18 17:45 U Random Total Protein 162 mg/dL 11/04/18 17:45 Urine Collection Time 24 hr 11/07/18 22:00 Urine Total Volume 100 mL 11/07/18 22:00 Ur Creatinine 24 Hour 148.04 mg/24Hr (600-1800) L D 11/07/18 22:00 Ur Creatinine Concen 148.04 mg/dL 11/07/18 22:00 Ur Total Protein Conc 139 mg/dL 11/07/18 22:00 Ur Total Protein 24 Hr 139 mg/24Hr (0-165) 11/07/18 22:00 Ur Urea Nitrogen Conc 181 mg/dL 11/06/18 22:50 Urine Glucose Negative (Negative) 11/03/18 17:20 Ur Albumin/Globulin 0.46 % 11/04/18 17:45 U Random g-2-Hjxbpayq % 5 % 11/04/18 17:45 U Random y-2-Xphaqfuh % 9 % 11/04/18 17:45 U Random b-Globulin % 22 % 11/04/18 17:45 U Random Gamma Glob % 33 % 11/04/18 17:45 Vancomycin Trough 15.3 mcg/mL 11/09/18 05:35 [place] Light Chain 32.0 mg/dL H 11/05/18 06:47 Lambda Light Chain 18.6 mg/dL H 11/05/18 06:47 [place]/Lambda Ratio 1.72 H 11/05/18 06:47 Serum Immunofixation See comment 11/05/18 06:47 Blood Type A Positive 11/13/18 04:40 Antibody Screen Negative 11/13/18 04:40 Crossmatch See Detail 11/13/18 04:40 - Objective Active Medications: Acetaminophen (Tylenol Tab*) 650 mg PO Q4H PRN PRN Reason: FEVER/PAIN Last Admin: 11/14/18 11:28 Dose: 650 mg Famotidine (Pepcid Tab*) 20 mg PO DAILY [facility] Last Admin: 11/14/18 08:26 Dose: 20 mg Furosemide (Lasix Iv*) 20 mg IV BID@0800,2000 [facility] Last Admin: 11/14/18 08:25 Dose: 20 mg Gabapentin (Neurontin Cap(*)) 100 mg PO DAILY [facility] Last Admin: 11/14/18 08:26 Dose: 100 mg Heparin Sodium (Porcine) (Heparin Flush Picc/Ml/Cvc(*)) 1 ml FLUSH 0600,1800 [facility]; Protocol Last Admin: 11/14/18 04:45 Dose: 1 ml Lorazepam (Ativan Tab(*)) 1 mg SL Q2HR PRN PRN Reason: ANXIETY Morphine Sulfate (Morphine Oral Concentrate*) 5 mg SL Q2H PRN PRN Reason: PAIN Nystatin (Nystatin Top Powder*) 1 applic TOPICAL TID [facility] Last Admin: 11/14/18 14:32 Dose: 1 applic Ondansetron HCl (Zofran Inj*) 4 mg IV Q6H PRN PRN Reason: NAUSEA Last Admin: 11/13/18 12:50 Dose: 4 mg Vital Signs: Vital Signs: Temp Pulse Resp BP Pulse Ox 98.2 F 88 18 120/43 100 11/14/18 13:40 11/14/18 13:40 11/14/18 14:32 11/14/18 13:40 11/14/18 13:40 Patient Weight: Weight 100 kg Intake and Output: Intake & Output 11/12/18 11/13/18 11/14/18 11/15/18 06:59 06:59 06:59 06:59 Intake Total 360 1150 120 48 Output Total 1125 300 450 100 Balance -765 850 -330 -52 Intake: Oral 360 1150 120 0 Albumin 48 Output: [place] 1125 300 450 100 Other: # Bowel Movements 1 1 Estimated Stool Amount Medium Large ADLs: Meal Record Start: 11/01/18 04: 01 Freq: DAILY@0900,1400,1800 Status: Complete Protocol: Created 11/01/18 04:01 System (Rec: 11/01/18 04:01 System TELE-M04) Document 11/01/18 09:00 [id number] (Rec: 11/01/18 15:25 [id number] TELE-C07) Document 11/01/18 14:00 EKJ1179 (Rec: 11/01/18 15:27 LEO4355 TELE-C07) Document 11/01/18 18:00 YSU4918 (Rec: 11/01/18 21:29 QMT9846 TELE-C03) Document 11/02/18 09:00 KYP8199 (Rec: 11/02/18 10:22 NHX7638 TELE-C07) Document 11/02/18 14:00 GSK3349 (Rec: 11/02/18 14:21 YYK5279 TELE-C11) Document 11/03/18 09:00 QYH2691 (Rec: 11/03/18 09:36 SHD4987 TELE-C09) Document 11/03/18 14:00 DXD3271 (Rec: 11/03/18 14:30 ZWX3311 TELE-C01) Document 11/03/18 17:42 HSN8451 (Rec: 11/03/18 17:42 UWR2298 TELE-C09) Document 11/04/18 09:00 MNB6842 (Rec: 11/04/18 12:03 ZKF7915 TELE-C05) Document 11/04/18 14:00 DBH5827 (Rec: 11/04/18 15:08 JCL5663 TELE-C05) Document 11/04/18 18:00 JQB1334 (Rec: 11/04/18 18:38 MDX0416 TELE-C11) Document 11/05/18 09:00 VGH5347 (Rec: 11/05/18 09:37 XPA1607 TELE-C05) Document 11/05/18 14:00 ZGS9083 (Rec: 11/05/18 14:40 KTQ2738 TELE-C09) Document 11/05/18 18:00 AST1098 (Rec: 11/05/18 21:16 QPP7017 TELE-C07) Document 11/06/18 09:00 JJW1404 (Rec: 11/06/18 12:18 OKE0176 TELE-C01) Document 11/06/18 14:00 SDT1577 (Rec: 11/06/18 14:58 MTS8909 TELE-C01) ADLs: Meal Record Start: 11/06/18 16: 36 Freq: 09,13,18 Status: Inactive Protocol: Created 11/06/18 16:36 ZFS6871 (Rec: 11/06/18 16:36 URF5467 ICU-C25) Document 11/06/18 23:49 TUU9856 (Rec: 11/06/18 23:49 SVL8579 ICU-C25) Document 11/07/18 09:00 PPX9707 (Rec: 11/07/18 11:25 ZRM7748 ICU-C16) Document 11/07/18 13:00 JRT4117 (Rec: 11/07/18 16:24 GQN8466 ICU-C16) Document 11/07/18 18:00 YLD8228 (Rec: 11/07/18 19:16 DHZ9956 ICU-C10) Document 11/08/18 09:00 YAJ4272 (Rec: 11/08/18 09:53 UVC8016 ICU-M34) Document 11/08/18 13:00 GES2709 (Rec: 11/08/18 14:16 KKD8543 ICU-M34) Document 11/09/18 09:30 WSD6124 (Rec: 11/09/18 11:05 NZT1686 ICU-C15) Document 11/09/18 15:00 KFV6233 (Rec: 11/09/18 16:11 XYF8752 ICU-C15) ADLs: Meal Record Start: 11/09/18 20: 16 Freq: 09,14,18 Status: Active Protocol: Document 11/09/18 20:16 (Rec: 11/09/18 20:16 MJQ1741 TELE-C10) Created 11/09/18 20:16 (Rec: 11/09/18 20:16 JLX3395 TELE-C10) Document 11/10/18 17:57 FJP1234 (Rec: 11/10/18 17:58 JWN3432 TELE-C09) Document 11/11/18 09:20 IQY6533 (Rec: 11/11/18 09:20 WOX2026 TELE-C11) Document 11/12/18 09:00 SVW3747 (Rec: 11/12/18 09:39 WGR8674 TELE-C07) Document 11/12/18 14:00 SVO7972 (Rec: 11/12/18 14:39 IAT0395 TELE-M06) Document 11/12/18 18:00 NRC8306 (Rec: 11/12/18 20:00 BAV8819 TELE-C09) Document 11/13/18 09:00 PEG1966 (Rec: 11/13/18 09:43 WQW3520 TELE-C11) Document 11/13/18 18:00 MUV5048 (Rec: 11/13/18 20:25 OOM1042 TELE-C01) Document 11/14/18 09:00 IVN5864 (Rec: 11/14/18 09:18 YBF7338 TELE-M03) Document 11/14/18 14:00 AZS8565 (Rec: 11/14/18 15:28 VUW7300 TELE-C11) Intake and Output Start: 11/01/18 00: 19 Freq: Status: Active Protocol: Created 11/01/18 00:19 System (Rec: 11/01/18 00:19 System EDRM-C18) Document 11/03/18 17:20 OLO8892 (Rec: 11/03/18 18:28 TQN0360 TELE-M07) Document 11/11/18 03:47 TOJ7762 (Rec: 11/11/18 03:47 LMF9031 TELE-C01) Document 11/11/18 16:31 BCL3268 (Rec: 11/11/18 16:31 AOY0582 TELE-C11) Document 11/13/18 05:06 NFX4178 (Rec: 11/13/18 05:06 QUA3964 TELE-C10) Document 11/13/18 05:33 UEY0435 (Rec: 11/13/18 05:33 MSL6637 TELE-C10) Document 11/14/18 09:32 SDV4381 (Rec: 11/14/18 09:32 QVE3688 TELE-M03) Intake and Output Start: 11/01/18 04: 01 Freq: DAILY@0600,1400,2200 Status: Complete Protocol: Created 11/01/18 04:01 System (Rec: 11/01/18 04:01 System TELE-M04) Document 11/01/18 06:00 RMX6940 (Rec: 11/01/18 06:09 SEX3448 TELE-C07) Document 11/01/18 22:00 RWN8016 (Rec: 11/01/18 22:09 EXA3836 TELE-C03) Document 11/01/18 23:05 RMB1781 (Rec: 11/01/18 23:06 LEI2413 TELE-C06) Document 11/02/18 01:20 DMP1101 (Rec: 11/02/18 01:20 SHO8906 TELE-C06) Document 11/02/18 06:00 PRV3531 (Rec: 11/02/18 06:13 LBW9596 TELE-C03) Document 11/02/18 22:00 LHL1640 (Rec: 11/02/18 22:46 GIM1539 TELE-C09) Document 11/03/18 05:22 QDH8380 (Rec: 11/03/18 05:24 WER2893 TELE-C09) Document 11/03/18 14:00 CVT9030 (Rec: 11/03/18 14:32 EZF5146 TELE-C01) Document 11/03/18 22:00 SOG7122 (Rec: 11/03/18 22:16 LRN2708 TELE-C09) Document 11/04/18 06:00 RDL4577 (Rec: 11/04/18 06:23 VDY6951 TELE-C09) Document 11/04/18 14:00 ASE3383 (Rec: 11/04/18 15:08 TBZ8794 TELE-C05) Document 11/04/18 22:00 WSA1994 (Rec: 11/04/18 22:46 MPO1958 TELE-C11) Document 11/05/18 06:00 YJX2569 (Rec: 11/05/18 06:03 NKL8398 TELE-C09) Document 11/05/18 14:00 UFH3579 (Rec: 11/05/18 14:41 KQV0103 TELE-C09) Document 11/05/18 22:00 RNS9132 (Rec: 11/05/18 22:33 SOE0594 TELE-C07) Document 11/06/18 06:00 TEO7078 (Rec: 11/06/18 06:07 PYO0512 TELE-C09) Document 11/06/18 14:00 TSW9252 (Rec: 11/06/18 14:58 ZUO4607 TELE-C01) Intake and Output Start: 11/06/18 16: 36 Freq: Q1HR Status: Inactive Protocol: Created 11/06/18 16:36 TRY8425 (Rec: 11/06/18 16:36 GOC0132 ICU-C25) Document 11/06/18 19:39 XUU6561 (Rec: 11/06/18 19:39 VDD4625 ICU-C07) Document 11/06/18 21:00 WMN4233 (Rec: 11/06/18 21:19 OSP7719 ICU-C25) Document 11/06/18 22:00 UYM9299 (Rec: 11/06/18 22:56 KCS3900 ICU-M34) Document 11/06/18 23:00 QZE7806 (Rec: 11/06/18 23:48 TJH1800 ICU-C25) Document 11/07/18 01:00 TTH0178 (Rec: 11/07/18 01:41 VVY9881 ICU-C25) Document 11/07/18 02:00 JDD1662 (Rec: 11/07/18 02:52 IEO6015 ICU-M34) Document 11/07/18 03:00 KJD3221 (Rec: 11/07/18 03:01 NGT9183 ICU-C25) Document 11/07/18 05:00 LTR2441 (Rec: 11/07/18 05:03 HEL9882 ICU-C25) Document 11/07/18 06:00 SZR4618 (Rec: 11/07/18 06:21 HMU2685 ICU-C25) Document 11/07/18 07:00 SSR1555 (Rec: 11/07/18 07:37 HSX9764 ICU-M34) Document 11/07/18 08:00 MVP4782 (Rec: 11/07/18 08:55 TYT6741 ICU-M34) Document 11/07/18 09:00 IES8954 (Rec: 11/07/18 09:36 OZD5417 ICU-M34) Document 11/07/18 10:00 ZZA1978 (Rec: 11/07/18 10:30 XPD5999 ICU-C10) Document 11/07/18 11:00 XMG9318 (Rec: 11/07/18 11:09 HJR9217 ICU-M34) Document 11/07/18 12:00 GYK8798 (Rec: 11/07/18 13:00 YFP7224 ICU-C16) Document 11/07/18 13:00 AHH9161 (Rec: 11/07/18 13:00 DOO3423 ICU-C16) Document 11/07/18 13:38 DCQ4200 (Rec: 11/07/18 13:38 CLK7339 ICU-M34) Document 11/07/18 14:00 FRC2047 (Rec: 11/07/18 15:04 TRP5461 ICU-M34) Document 11/07/18 15:00 WNO3323 (Rec: 11/07/18 15:04 DNT4259 ICU-M34) Document 11/07/18 16:00 OUA7815 (Rec: 11/07/18 16:22 WDR8504 ICU-C16) Document 11/07/18 17:00 NKM0524 (Rec: 11/07/18 17:15 CYW2312 ICU-M34) Document 11/07/18 18:00 UOZ5040 (Rec: 11/07/18 18:07 IRA0746 ICU-M34) Document 11/07/18 19:00 VTI7396 (Rec: 11/07/18 19:25 NIN5525 ICU-C10) Document 11/07/18 20:00 SGR3843 (Rec: 11/07/18 20:58 WYE6240 ICU-C16) Document 11/07/18 21:00 ZPQ2100 (Rec: 11/07/18 21:46 JJL4990 ICU-M34) Document 11/07/18 23:00 [id number] (Rec: 11/07/18 23:25 [id number] ICU-C16) Document 11/08/18 01:00 [id number] (Rec: 11/08/18 01:41 [id number] ICU-C16) Document 11/08/18 02:00 [id number] (Rec: 11/08/18 02:47 [id number] ICU-C16) Document 11/08/18 03:00 QOG1206 (Rec: 11/08/18 04:53 [id number] ICU-C16) Document 11/08/18 04:00 [id number] (Rec: 11/08/18 04:53 [id number] ICU-C16) Document 11/08/18 05:00 VGQ0024 (Rec: 11/08/18 05:02 [id number] ICU-C16) Document 11/08/18 06:00 NPQ1770 (Rec: 11/08/18 06:01 [id number] ICU-M34) Document 11/08/18 07:00 VZO4758 (Rec: 11/08/18 09:51 [id number] ICU-M34) Document 11/08/18 08:00 DRE2323 (Rec: 11/08/18 09:52 PPC5510 ICU-M34) Document 11/08/18 09:00 PTR0650 (Rec: 11/08/18 09:52 [id number] ICU-M34) Document 11/08/18 09:52 IBH2172 (Rec: 11/08/18 09:52 [id number] ICU-M34) Document 11/08/18 11:00 YJG8633 (Rec: 11/08/18 11:17 RSY1622 ICU-M34) Document 11/08/18 12:00 COE8229 (Rec: 11/08/18 12:34 [id number] ICU-C10) Document 11/08/18 13:00 [id number] (Rec: 11/08/18 14:15 [id number] ICU-M34) Document 11/08/18 14:00 HHS9522 (Rec: 11/08/18 14:15 [id number] ICU-M34) Document 11/08/18 15:00 YVV6478 (Rec: 11/08/18 15:02 ROH9562 ICU-C10) Document 11/08/18 16:00 RQK2293 (Rec: 11/08/18 17:01 VSQ2247 ICU-M31) Document 11/08/18 17:00 QQI6246 (Rec: 11/08/18 17:01 OGK8911 ICU-M31) Document 11/08/18 18:00 WFJ2736 (Rec: 11/08/18 19:07 [id number] ICU-C10) Document 11/08/18 19:00 KGR4208 (Rec: 11/08/18 19:07 [id number] ICU-C10) Document 11/08/18 20:00 WWT9971 (Rec: 11/08/18 21:15 [id number] ICU-M34) Document 11/08/18 21:00 [id number] (Rec: 11/08/18 21:15 [id number] ICU-M34) Document 11/08/18 22:00 NCR2442 (Rec: 11/08/18 23:52 [id number] ICU-C16) Document 11/08/18 23:00 RIR3358 (Rec: 11/08/18 23:52 TKZ1723 ICU-C16) Document 11/09/18 00:00 CSM7661 (Rec: 11/09/18 01:18 [id number] ICU-C16) Document 11/09/18 01:00 HRB4882 (Rec: 11/09/18 02:09 [id number] ICU-C16) Document 11/09/18 02:00 FZL3412 (Rec: 11/09/18 02:09 [id number] ICU-C16) Document 11/09/18 03:00 WRB3192 (Rec: 11/09/18 03:05 IEV7615 ICU-C16) Document 11/09/18 04:00 OUI0683 (Rec: 11/09/18 05:09 [id number] ICU-C16) Document 11/09/18 05:00 KME0756 (Rec: 11/09/18 05:09 [id number] ICU-C16) Document 11/09/18 06:00 HUT7106 (Rec: 11/09/18 06:09 IOS1641 ICU-C16) Document 11/09/18 07:00 GNI2368 (Rec: 11/09/18 11:44 [id number] ICU-M34) Document 11/09/18 08:00 WCR1624 (Rec: 11/09/18 11:44 [id number] ICU-M34) Document 11/09/18 09:00 MCZ6401 (Rec: 11/09/18 11:45 [id number] ICU-M34) Document 11/09/18 10:00 [id number] (Rec: 11/09/18 11:45 [id number] ICU-M34) Document 11/09/18 11:00 OSL8870 (Rec: 11/09/18 11:45 [id number] ICU-M34) Document 11/09/18 12:00 YKX6690 (Rec: 11/09/18 12:08 UHZ5464 ICU-M34) Document 11/09/18 14:00 UGS8695 (Rec: 11/09/18 14:47 [id number] ICU-C15) Document 11/09/18 15:00 APQ6909 (Rec: 11/09/18 15:30 [id number] ICU-C15) Eyes: - - icteric sclera Ears/Nose/Mouth/Throat: - - erik oral mucosa Neck: Trachea Midline Cardiovascular: - - + 4 anasarca Abdominal: NL Sounds; No Tenderness; No Distention Extremities: - - edema bilateral venous stasis ulcers Neurological: - - Drowsy and oriented to person and place - Assessment Assessment: 73 yo female with sepsis/bacteremia, osteomyelitis several sites, chronic kidney disease and malnutrition who is actively dying - Plan Consult Plan (MU): Hospice - eligible but not interested currently Plan: Long discussion with family at bedside. Family included pt, , son, daughter, cousin and friend. Family aware of poor prognosis secondary to sepsis/ bacteremia, osteomyelitis-several sites, kidney disease and low albumin. They realize she is going to and they are requesting that she be kept comfortable. Comfort care has been initiated. stated that they have been together for 57 yrs. They had lost 2 sons 5 months apart. They are familiar with hospice because they used them with their first son who of cancer. They are not interested in Hospice currently because they don't want the pt moved. They feel it will be too stressful for her. said his was DNR/DNI because she didn't want to prolong her suffering. She has had multiple hospitalizations at [facility] in the last year. She is hospice eligible with sepsis/bacteremia, kidney failure and low albumin. KPS 10% , PPS 10% - Time On Unit Date of Evaluation: 11/14/18 Hospice Consult Time in: 16:30 Hospice Consult Time Out: 18:00 Hospice Consult Time Total: 90 > 50% of Time Spend In Counseling or Coordinating Care: Yes
[2018-11-14] MEDS: Morphine ORAL CONCENTRATE* 5 MG/0.25 ML ORAL.SYRIN SL PRN ×4 (20:40→23:42)
[2018-11-14] MEDS ORDERED: Methadone TAB* 10 MG PO SCH (21:00)
[2018-11-14] MEDS: LORazepam TAB(*) 1 MG SL PRN ×2 (21:40→23:46)
[2018-11-15] MEDS: Morphine ORAL CONCENTRATE* 5 MG/0.25 ML ORAL.SYRIN SL PRN ×10 (00:40→22:37)
[2018-11-15] MEDS: LORazepam TAB(*) 1 MG SL PRN ×3 (02:50→20:42)
[2018-11-15] MEDS: Famotidine TAB* 20 MG PO SCH (10:46)
[2018-11-15] MEDS: Gabapentin CAP(*) 100 MG PO SCH (10:46)
[2018-11-15] MEDS: Furosemide IV* 10 MG/ML 2 ML VIAL (20 MG) IV SCH ×2 (10:46→23:01)
[2018-11-15] MEDS: Nystatin TOP POWDER* 15 GM BTL TOPICAL SCH ×3 (10:47→23:02)
--- NOTE | 2018-11-15 13:35 | PN ---
Subjective Date of Service: 11/15/18 Interval History: patient seen this morning. She is asleep, not responsive. breathing shallow not labored. transmitted upper breath sound Objective Active Medications: Acetaminophen (Tylenol Tab*) 650 mg PO Q4H PRN PRN Reason: FEVER/PAIN Last Admin: 11/14/18 17:40 Dose: 650 mg Atropine Sulfate (Atropine 1% (Oral/Sl)*) 2 drop SL Q2H PRN PRN Reason: DISCOMFORT Famotidine (Pepcid Tab*) 20 mg PO DAILY [facility] Last Admin: 11/15/18 10:46 Dose: Not Given Furosemide (Lasix Iv*) 20 mg IV BID@0800,2000 [facility] Last Admin: 11/15/18 10:46 Dose: Not Given Gabapentin (Neurontin Cap(*)) 100 mg PO DAILY [facility] Last Admin: 11/15/18 10:46 Dose: Not Given Heparin Sodium (Porcine) (Heparin Flush Picc/Ml/Cvc(*)) 1 ml FLUSH 0600,1800 [facility]; Protocol Last Admin: 11/15/18 04:46 Dose: Not Given Lorazepam (Ativan Tab(*)) 1 mg SL Q2HR PRN PRN Reason: ANXIETY Last Admin: 11/15/18 02:50 Dose: 1 mg Morphine Sulfate (Morphine Oral Concentrate*) 5 mg SL Q1H PRN PRN Reason: PAIN Last Admin: 11/15/18 12:31 Dose: 5 mg Nystatin (Nystatin Top Powder*) 1 applic TOPICAL TID [facility] Last Admin: 11/15/18 10:47 Dose: Not Given Ondansetron HCl (Zofran Inj*) 4 mg IV Q6H PRN PRN Reason: NAUSEA Last Admin: 11/13/18 12:50 Dose: 4 mg Vital Signs - 8 hr 11/15/18 11/15/18 11/15/18 06:00 08:00 12:31 Respiratory 12 20 16 Rate Oxygen Devices in Use Now: Nasal Cannula Eyes: - - pinpoint. sluggish Respiratory: - - transmitted upper airway breath sounds Cardiovascular: RRR Extremities: - - Edema Result Diagrams: 11/14/18 04:50 11/14/18 04:50 Additional Lab and Data: Above labs were pulled into the note when the note was edited prior to signing , see labs from day of consult below Microbiology and Other Data: Microbiology 11/04/18 15:30 Stool Culture - Final Stool Stool Gross Appearance - Final Shiga Toxin I & II - Final Negative Shiga Toxin 1 & 2 Stool Occult Blood (IKE) - Final 11/01/18 03:12 Aerobic Blood Culture - Final Blood Venous Not Reportable Anaerobic Blood Culture - Final Not Reportable Blood Culture - Final No Growth Day 5 11/01/18 00:46 Aerobic Blood Culture - Final Blood Venous Not Reportable Anaerobic Blood Culture - Final Not Reportable Blood Culture - Final No Growth Day 5 10/31/18 19:45 Aerobic Blood Culture - Final Blood Venous Strep Dysgalactiae (Grp C) Anaerobic Blood Culture - Preliminary No Growth Day 3 11/03/18 17:20 Urine Culture - Final Urine No Growth (<1,000 CFU/mL) 11/01/18 02:18 Urine Culture - Final Urine No Growth (<1,000 CFU/mL) 11/01/18 04:05 Nasal Screen MRSA (PCR) - Final Nasal Mrsa Detected Diagnostic Imaging: Exam Date: 11/02/18 1400 - MRI LOWER EXTREMITY RIGHT W/O IMPRESSION: FINDINGS MOST CONSISTENT WITH OSTEOMYELITIS INVOLVING THE DISTAL PHALANX OF THE GREAT TOE. EKG Data: . Assess/Plan/Problems-Billing Assessment: Ms. Mendes is a 73 year old female with hx of CAD/CABG, DM, HTN transferred from [facility] on 11/01/18 for sepsis. Was in ICU, Right great toe osteomyelitis status post amputation 11/05, KELBY with CKD. progressed into multiorgan dysfunction with acute kidney injury, acute anemia most likley form acute illness and bone marrow suppression, hyperkalemia, acidosis, hypoalbunemia , psoas abscess, lumbar diskitis and osteomyelitis. family meeting, palliative care consult and patient and family consent for palliative and comfort care. She was transitioned to comfort care on roxanol and ativan and she is unstable for transfer. will continue treatment for comfort care. expected 24-48 hrs - Patient Problems (1) Streptococcal bacteremia Current Visit: Yes Status: Acute Code(s): R78.81 - BACTEREMIA; B95.5 - UNSP STREPTOCOCCUS THE CAUSE OF DISEASES [facility]SD [facility] SNOMED Code(s): 276734224072 (2) KELBY (acute kidney injury) Current Visit: Yes Status: Acute Code(s): N17.9 - ACUTE KIDNEY FAILURE, UNSPECIFIED SNOMED Code(s): 24045557 Comment: (3) Anemia Current Visit: Yes Status: Acute Code(s): D64.9 - ANEMIA, UNSPECIFIED SNOMED Code(s): 931772529 (4) Hyperkalemia Current Visit: Yes Status: Acute Code(s): E87.5 - HYPERKALEMIA SNOMED Code (s): 85839406 (5) Serum albumin decreased Current Visit: Yes Status: Acute Code(s): E88.09 - OTH DISORDERS OF PLASMA- PROTEIN METABOLISM, NEC SNOMED Code(s): 687061147 (6) Afib Current Visit: Yes Status: Acute Code(s): I48.91 - UNSPECIFIED ATRIAL FIBRILLATION SNOMED Code(s): 79129991 (7) CAD (coronary artery disease) Current Visit: Yes Status: Acute Code(s): I25.10 - ATHSCL HEART DISEASE OF [place] CORONARY ARTERY W/O ANG PCTRS SNOMED Code(s): 10272932 (8) Diabetes Current Visit: Yes Status: Acute Code(s): E11.9 - TYPE 2 DIABETES MELLITUS WITHOUT COMPLICATIONS SNOMED Code(s): 35457262 (9) DVT prophylaxis Current Visit: Yes Status: Acute Code(s): Z29.9 - ENCOUNTER FOR PROPHYLACTIC MEASURES, UNSPECIFIED SNOMED Code(s): 292029856 Status and Disposition: Inpatient, guarded
[2018-11-15] MEDS: Atropine 1% (ORAL/SL)* 15 ML BTL SL PRN (22:37)
[2018-11-16] MEDS: Morphine ORAL CONCENTRATE* 5 MG/0.25 ML ORAL.SYRIN SL PRN ×4 (00:26→07:22)
[2018-11-16] MEDS: LORazepam TAB(*) 1 MG SL PRN ×3 (00:26→07:23)
[2018-11-16] MEDS: Atropine 1% (ORAL/SL)* 15 ML BTL SL PRN ×3 (02:48→07:23)
[2018-11-16] MEDS: Famotidine TAB* 20 MG PO SCH (08:28)
[2018-11-16] MEDS: Gabapentin CAP(*) 100 MG PO SCH (08:28)
[2018-11-16] MEDS ORDERED: Lorazepam PYXIS KEY PRN (09:23)
[2018-11-16] MEDS ORDERED: LORazepam INJ* 2 MG/ML 1 ML VIAL IV PUSH PRN (09:23)
[2018-11-16] MEDS: Furosemide IV* 10 MG/ML 2 ML VIAL (20 MG) IV SCH (09:25)
--- NOTE | 2018-11-16 13:17 | DS ---
DATE OF ADMISSION: 11/01/2018. DATE OF : 11/16/2018. FINAL DISCHARGE DIAGNOSES: 1. Streptococcal bacteremia and septicemia secondary to osteomyelitis. 2. Acute kidney injury. 3. Acute anemia secondary to acute medical illness. 4. Hyperkalemia. 5. Hypoalbuminemia. 6. Anasarca. 7. A-fib, newly onset. 8. Coronary artery disease. 9. Diabetes mellitus. 10. Psoas muscle abscess. 11. Lumbar spine diskitis/osteomyelitis. HOSPITAL COURSE: The patient presented to [facility] on 11/01/2018 to the Medical Service for fever and generalized weakness from [facility] and an elevated troponin. She was found t o have a fever for three days with a temperature as high as 103 along with diarrhea. She has been be dridden, unable to walk, and had been refusing to go to the ER. Finally the son convinced her to com e in after being extremely weak. On presentation, she was admitted for acute sepsis and pneumonia and was diagnosed with cellulitis. She remained on the Hospitalist Service and during the hospital course her septicemia was positive fo r streptococcal dysgalactiae for which she was receiving IV antibiotics, Rocephin and Flagyl. She un derwent transthoracic echo which was negative for vegetation, and a CT of the abdomen, given her ongo ing back pain, revealed psoas muscle abscess and lumbar diskitis. Her acute kidney injury was treate d with IV fluid, Lasix, along with albumin infusion given her hypoalbuminemia without any significant improvement. Anemia which was due to acute medical illness, no overt bleed; was taken off aspirin a nd Heparin. Her condition continued to decline despite all the medical therapy giving her overall a comorbid cond ition. I had a family meeting with the patient's family and palliative care consult was obtained who evaluated the patient and she was placed on comfort care measures on November 14, late evening. The malgorzata walter was provided emotional support and today on November 16 at 9:58 a.m. I was called to assess the p atient as she was breathless and pulseless and she was pronounced at 9:58. CONDITION: The patient . Time of at 9:58 a.m. DISPOSITION: To the [facility] [place] and then the home at the family's decision. [id number]/[facility] #: [id number]
== END 2018-11-16 09:58 | disposition expired | DRG 853 ==
LOC: ED 00:09 → MEDTELE 02:54 → ICU 11-06 15:18 → MEDTELE 11-09 17:56
PROVIDERS: ADMIT Internal Medicine; ATTEND Internal Medicine
PROC: 30233N1 Transfusion of Nonautologous Red Blood Cells into Peripheral Vein, Percutaneous Approach (ICD-10-PCS; 2018-11-01)
PROC: 0Y6M0ZB Detachment at Right Foot, Partial 2nd Ray, Open Approach (ICD-10-PCS; 2018-11-05)
PROC: 0Y6M0ZC Detachment at Right Foot, Partial 3rd Ray, Open Approach (ICD-10-PCS; 2018-11-05)
PROC: 0Y6M0ZD Detachment at Right Foot, Partial 4th Ray, Open Approach (ICD-10-PCS; 2018-11-05)
PROC: 0Y6M0ZF Detachment at Right Foot, Partial 5th Ray, Open Approach (ICD-10-PCS; 2018-11-05)
PROC: 0Y6M0Z9 Detachment at Right Foot, Partial 1st Ray, Open Approach (ICD-10-PCS; principal; 2018-11-05 17:30)
DX: A40.8 Other streptococcal sepsis (principal); J18.9 Pneumonia, unspecified organism; K68.12 Psoas muscle abscess; M86.8X7 Other osteomyelitis, ankle and foot; N17.9 Acute kidney failure, unspecified; M46.36 Infection of intervertebral disc (pyogenic), lumbar region; R65.20 Severe sepsis without septic shock; L03.031 Cellulitis of right toe; I25.10 Atherosclerotic heart disease of native coronary artery without angina pectoris; E11.42 Type 2 diabetes mellitus with diabetic polyneuropathy; E11.69 Type 2 diabetes mellitus with other specified complication; E11.22 Type 2 diabetes mellitus with diabetic chronic kidney disease; N18.9 Chronic kidney disease, unspecified; I89.0 Lymphedema, not elsewhere classified; Z96.653 Presence of artificial knee joint, bilateral; E11.621 Type 2 diabetes mellitus with foot ulcer; D64.9 Anemia, unspecified; L97.519 Non-pressure chronic ulcer of other part of right foot with unspecified severity; I12.9 Hypertensive chronic kidney disease with stage 1 through stage 4 chronic kidney disease, or unspecified chronic kidney disease; G89.29 Other chronic pain; E88.09 Other disorders of plasma-protein metabolism, not elsewhere classified; R79.89 Other specified abnormal findings of blood chemistry; R33.9 Retention of urine, unspecified; I95.9 Hypotension, unspecified; E87.5 Hyperkalemia; I48.91 Unspecified atrial fibrillation; Z95.1 Presence of aortocoronary bypass graft; Z86.73 Personal history of transient ischemic attack (TIA), and cerebral infarction without residual deficits; Z88.8 Allergy status to other drugs, medicaments and biological substances; Z82.49 Family history of ischemic heart disease and other diseases of the circulatory system; Z90.710 Acquired absence of both cervix and uterus
CPT/HCPCS: 36415; 36600; 71045; 71250; 72146; 72148; 74150; 76705; 76775; 80048; 80053; 80076; 80202; 81003; 81015; 82140; 82248; 82272; 82330; 82570; 82607; 82746; 82803; 83036; 83540; 83550; 83605; 83735; 83880; 83883; 84100; 84132; 84134; 84155; 84156; 84165; 84166; 84466; 84484; 84540; 85014; 85018; 85025; 85027; 85610; 85730; 86140; 86850; 86900; 86901; 86922; 87040; 87045; 87046; 87086; 87641; 87899; 88305; 88311; 89190; 93005; 93306; 99285; A9270-GY; C8929; G8978-GP-CM; G8978-GP-CN; G8979-GP-CJ; G8979-GP-CL; J0692; J0696; J1170; J1644; J1940; J2060; J2250; J2270; J2405; J2543; J2704; J3010; J3370; J3490; P9040; P9045; P9047